=== PATIENT | female | born 1950 | race Caucasian/White ===

== ENCOUNTER 2024-02-03 11:20 | Emergency (ER) | payer MEDICARE, MEDICAID, SELFPAY ==
[2024-02-03 11:21] VITALS: BMI 19.6
[2024-02-03 12:07] VITALS: BP 119/65; PULSE 99; RESP 24; TEMP 36.5; O2SAT 91
--- NOTE | 2024-02-03 12:16 | PD.EDRME ---
Rapid Medical Screening Exam RME Arrival date/time: 02/03/24 11:20 73-year-old female past medical history of asthma and neck smoker presents emergency department requesting refill to albuterol inhaler and shortness of breath. Chief Complaint: Asthma Time Seen by Provider: 02/03/24 12:03 Vital signs: Vital Signs Temperature 97.7 F 02/03/24 12:07 Pulse Rate 99 02/03/24 12:07 Respiratory Rate 24 H 02/03/24 12:07 Blood Pressure 119/65 02/03/24 12:07 Pulse Oximetry (%) 91 L 02/03/24 12:07 Oxygen Delivery Method Room Air 02/03/24 12:07 Vital signs reviewed by provider: Yes
[2024-02-03 12:22] VITALS: PULSE 107
[2024-02-03] MEDS: predniSONE 20 MG TABLET 40 MG PO (12:22)
[2024-02-03] MEDS: ALBUTEROL RT 2.5 MG/0.5 ML NEBU 5 MG INH (12:22)
[2024-02-03] MEDS: IPRATROPIUM RT 0.5 MG/ 2.5 ML NEBU 1 MG INH (12:23)
[2024-02-03 12:26] VITALS: PULSE 100; RESP 16; O2SAT 96
--- NOTE | 2024-02-03 12:33 | PD.ASTHM ---
ED Asthma RME/HPI General Chief Complaint: Asthma Stated Complaint: ASTHMA, NEEDS REFILL ON INHALER Time Seen by Provider: 02/03/24 12:03 Source: patient Arrival date/time: 02/03/24 11:20 73-year-old female past medical history of asthma and neck smoker presents emergency department requesting refill to albuterol inhaler and shortness of breath. Patient denies any fever, chills, productive cough, or any other associated symptom. Mode of arrival: ambulatory Limitations: no limitations RME / HPI RME / HPI Narrative: 02/03/24 11:20 73-year-old female past medical history of asthma and neck smoker presents emergency department requesting refill to albuterol inhaler and shortness of breath. Related Data Previous Rx's ?Medication ?Instructions ?Recorded albuterol sulfate 90 mcg/actuation 2 puff inhalation Q6H PRN 02/03/24 aerosol inhaler (Ventolin HFA) shortness of breath or wheezing #6.7 grams prednisone 20 mg tablet 20 mg PO QDAY 3 days #3 tabs 02/03/24 Allergies Allergy/AdvReac Type Severity Reaction Status Date / Time strawberry Allergy Unknown Verified 02/03/24 11:23 Review of Systems Review of Systems Systems Reviewed: All systems reviewed, normal except as documented Constitutional Constitutional: Reports system reviewed and no additional complaints, except as documented, Denies body ache(s), Denies chills and Denies fever(s) Eyes Eyes: Reports system reviewed and no additional complaints, except as documented and Denies change in vision ENT Ears, Nose, Mouth, and Throat: Reports system reviewed and no additional complaints, except as documented, Denies disequilibrium, Denies dizziness, Denies sore throat and Denies vertigo Cardiovascular Cardiovascular: Reports system reviewed and no additional complaints, except as documented, Denies chest pain and Reports dyspnea Respiratory Respiratory: Reports system reviewed and no additional complaints, except as documented, Denies chest congestion, Denies cough and Reports dyspnea Gastrointestinal Gastrointestinal: Reports system reviewed and no additional complaints, except as documented, Denies abdominal pain, Denies nausea and Denies vomiting Musculoskeletal Musculoskeletal: Reports system reviewed and no additional complaints, except as documented, Denies abnormal gait and Denies arthralgias Integumentary/Breasts Skin/Breast: Reports system reviewed and no additional complaints, except as documented, Denies erythema, Denies rash and Denies wounds Neurologic Neurologic: Reports system reviewed and no additional complaints, except as documented, Denies abnormal gait, Denies disequilibrium, Denies dizziness and Denies vertigo Past Medical History Social History SMOKING STATUS: Smoker, status unknown ED Exam General Limitations: Present no limitations General appearance: Present alert and in no apparent distress Head Head exam: Present atraumatic Eye Eye exam: Present normal appearance, PERRL and EOMI ENT ENT exam: Present normal exam, normal oropharynx and mucous membranes moist Neck Neck exam: Present normal inspection, full ROM and trachea midline Chest Chest inspection: Present normal inspection and symmetric chest wall rise Respiratory Respiratory exam: Present normal lung sounds bilaterally and wheezes Cardiovascular Cardiovascular exam: Present regular rate, normal rhythm and normal heart sounds Abdominal Exam Abdominal exam: Present soft and normal bowel sounds Extremities Exam Extremities exam: Present normal inspection and full ROM Back Exam Back exam: Present normal inspection and full ROM Neurological Exam Neurological exam: Present alert, oriented X3 and CN II-XII intact Psychiatric Psychiatric exam: Present normal affect and normal mood Skin Skin exam: Present warm, dry, intact and normal color Course Quality Measures none Orders Category Date Time Status ALBUTEROL RT 0.5ml [Proventil Rt 0.5ml] Med 02/03/24 12:13 Discontinued 5 mg INH X1 ONE Ipratropium [place] Rt Chayo [Atrovent Rt Chayo] Med 02/03/24 12:13 Discontinued 1 mg INH X1 ONE Sodium Chloride Rt Chayo 0.9% [NS Rt Chayo 0.9%] Med 02/03/24 12:13 Active 3 ml INH PRN PRN predniSONE Med 02/03/24 12:13 Discontinued 40 mg PO X1 ONE Vital Signs Vital signs: Vital Signs Temperature 97.7 F 02/03/24 12:07 Pulse Rate 99 02/03/24 12:07 Respiratory Rate 24 H 02/03/24 12:07 Blood Pressure 119/65 02/03/24 12:07 Pulse Oximetry (%) 91 L 02/03/24 12:07 Oxygen Delivery Method Room Air 02/03/24 12:07 91% room air within normal limits Asthma MDM Narrative MDM Narrative:: 73-year-old female past medical history of asthma and neck smoker presents emergency department requesting refill to albuterol inhaler and shortness of breath. Patient denies any fever, chills, productive cough, or any other associated symptom. Bilateral upper expiratory wheeze on auscultation that significantly improved with breathing treatment and steroids. Does not appear to be in any respiratory distress. Patient speaking in full sentences with no pursed lip breathing or tripoding. Albuterol refilled and instructed to follow-up with primary care provider return to emergency department for any worsening symptoms or as needed. Patient data External records reviewed:: [facility] previous records Clinical information provided by:: patient Social determinants that could affect healthcare access:: none Patient has the following chronic illnesses:: See chart How is presenting disease/condition affected by chronic disease/condition?: exacerbated by Evaluation data The following diagnostics were reviewed and interpreted by me:: other (specify) (N/A) Lab and/or radiology exams considered but not ordered:: N/A Interpretation Summary: N/A Medications / Prescriptions Medications or Prescriptions considered but not ordered:: Ordered Medication administrations:: Medication Administration History Sodium Chloride (Sodium Chloride Rt [place]ayo 0.9% 3 Ml Nebu) 3 ml INH PRN PRN PRN Reason: SOLN Stop: 03/04/24 12:12 Discontinued Medications Albuterol (Albuterol Rt 2.5 Mg/0.5 Ml Nebu) 5 mg INH X1 ONE Stop: 02/03/24 12:14 Last Admin: 02/03/24 12:22 Dose: 5 mg Documented By: MR Ipratropium [place] (Ipratropium Rt 0.5 Mg/ 2.5 Ml Nebu) 1 mg INH X1 ONE Stop: 02/03/24 12:14 Last Admin: 02/03/24 12:23 Dose: 1 mg Documented By: MR Prednisone (Prednisone 20 Mg Tablet) 40 mg PO X1 ONE Stop: 02/03/24 12:14 Last Admin: 02/03/24 12:22 Dose: 40 mg Documented By: [facility] Comments: forgot to scan med Consultations Consultation(s) initiated? (list below): No Diagnosis Differential diagnosis asthma: Acute exacerbation, Status asthmaticus, Acute asthmatic bronchitis, Pneumonia, COPD exacerbation, Pulmonary edema systolic and Pulmonary edema dystolic Most likely diagnosis given after review of the tests above:: Asthma with acute exacerbation Admission Indicated Admission indicated?: not indicated Admission Request Was there a request for admission?: No Disposition Plan Disposition Plan: Discharge Discharge Attestation Discharge Attestation: The patient and all family members were given an opportunity to ask questions and understood the discharge instructions. Discharge instructions specifically effects, indications for sooner follow up or return to the emergency department, and the expected course of current diagnosis. Patient condition: Stable Discharge Plan Plan Patient Disposition: HOME (Self Care) Disposition Comment: Stable Prescriptions/Referrals Prescriptions/Med Rec: New albuterol sulfate [Ventolin HFA] 90 mcg/actuation HFA aerosol inhaler 2 puff inhalation Q6H PRN (Reason: shortness of breath or wheezing) Qty: 6.7 0RF prednisone 20 mg tablet 20 mg PO QDAY 3 Days Qty: 3 0RF Taper: Prednisone Taper 20 mg DAILY for 2 Days and 0 Hour 10 mg DAILY for 2 Days and 0 Hour 5 mg DAILY for 7 Days and 0 Hour Problem List Clinical Impression: Asthma with acute exacerbation Patient/Caregiver Discharge Instructions Discharge Activity: activity as tolerated Education Materials: ED Inhaler Use, Asthma Additional Instructions: Take medication as prescribed. Avoid asthma triggers. Use inhaler as needed for any shortness of breath or wheezing. Follow-up with primary care provider in 2 to 3 days. Return to emergency department for any worsening symptoms or as needed. Print Language: [place] Stand Alone Forms: Sachi Award Info., Patient Portal Info Letter PA/TRASH COLLECTOR Supervising Physician PA/MAMADOU Supervising Physician: Dr. Bernstein
== END 2024-02-03 13:20 | disposition home or self-care (01) ==
LOC: SERX 13:25
PROVIDERS: Emergency Provider Emergency Medicine; PCP Family Medicine
DX: Z76.0 Encounter for issue of repeat prescription (principal); J45.901 Unspecified asthma with (acute) exacerbation
CPT/HCPCS: 94640; 99283; J7512

== ENCOUNTER 2024-02-08 10:20 | Inpatient (IN) | payer MEDICARE, MEDICAID, SELFPAY ==
[2024-02-08] VITALS (14 sets, daily range): BP systolic 126–189; BP diastolic 72–89; PULSE 102–132; RESP 14–89; TEMP 36.3–37.9; O2SAT 92–98; BMI 20.2
--- NOTE | 2024-02-08 10:38 | XR_ITS ---
Examination: AP chest single view Technique one AP portable semiupright chest single view Exam date and time: February 08, 2024 at 1047 hours Comparison March 06, 2006 INDICATIONS: Chest pain today. FINDINGS: COPD with moderate hyperexpansion Normal heart size Rounded masslike area in the right infrahilar region at least 4 cm Left base pneumonia Scarring versus atelectasis in the left upper lobe IMPRESSION: Recommend CT chest without contrast follow-up to exclude 4 cm pulmonary mass in the right infrahilar region
[2024-02-08 10:57] LABS: Basophils # (Auto) 0.1 Thou/mm3 (0.0-0.2); Basophils % (Auto) 0 % (0-2.5); Eosinophils % (Auto) 0 % (0-10); Hematocrit 49.4 % (36.0-46.0); Hemoglobin 16.4 g/dL (12.0-16.0); Immature Granulocytes % (Auto) 3 % (0-0); Immature Granulocytes Auto 0.36 Thou/mm3 (0.00-0.00); Lymphocytes # (Auto) 0.7 Thou/mm3 (1.0-4.8); Lymphocytes % (Auto) 5 % (10-50); Mean Corpuscular HGB Conc 33.2 g/dl (31.0-37.0); Mean Corpuscular Hemoglobin 31.8 pg (25.0-35.0); Mean Corpuscular Volume 96 fL (80-100); Monocytes # (Auto) 1.2 Thou/mm3 (0.0-0.8); Monocytes % (Auto) 9 % (0-12); Neutrophils # (Auto) 10.5 Thou/mm3 (1.8-7.7); Neutrophils % (Auto) 82 % (37-80); Nucleated Red Blood Cell % 0 /100 WBC (0); Platelet Count 434 Thou/mm3 (140-440); RDW Standard Deviation 49.9 fL (36.4-46.3); Red Blood Count 5.16 Miln/mm3 (4.00-5.20); White Blood Count 12.8 Thou/mm3 (3.6-11.0)
[2024-02-08] MEDS: ALBUTEROL RT 2.5 MG/0.5 ML NEBU 10 MG INH (11:02)
[2024-02-08] MEDS: IPRATROPIUM RT 0.5 MG/ 2.5 ML NEBU INH (11:02)
[2024-02-08] MEDS: ALBUTEROL/IPRATROPIUM (Duoneb) RT SOL 3 ML NEBU INH ×3 (11:03→18:16)
--- NOTE | 2024-02-08 11:16 | XR_ITS ---
Examination: CT chest, without intravenous contrast. Sagittal and coronal 2-D reconstructions. Exam date and time: February 08, 2024 1216 hours INDICATIONS: Shortness of breath beginning 5 days ago Abnormal lung opacity in the right perihilar region on chest film today CTDI:vol (mGy) 4.52 DLP: (mGycm) 160 Technique: Multiple 3.0 mm axial sections of the chest to been obtained. Bone and lung density settings are obtained. Sagittal and coronal 2-D reconstructions have been obtained. Low dose protocols were performed. One or more of the following dose reduction techniques were used; automated exposure control, adjustment of the mA and/or KV according to patient size, use of iterative reconstruction technique. Findings: No thoracic aortic aneurysmal dilatation Mild prominence right and left main pulmonary artery segments Hyperexpansion with areas of airspace destruction in both lungs, COPD pattern Wedge-shaped density radiating from the right hilar region, at least 5.4 x 3.8 cm which may represent atelectasis Endobronchial lesion is not depicted Mild atelectasis in the right upper lobe No pulmonary edema No visualized liver or splenic lesion Kidneys partially visualized no hydronephrosis Severe osteopenia IMPRESSION: COPD Pulmonary artery hypertension Wedge-shaped density radiating from the right hilar region and these 5.4 x 3.8 cm most consistent with atelectasis, without definite endobronchial lesion Recommend follow-up chest imaging to document clearing of this area of probable atelectasis If this wedge-shaped area of parenchymal disease persists, consider bronchoscopy follow-up
[2024-02-08 11:19] LABS: INR 1.1 (0.9-1.3); Partial Thromboplastin Time 26.5 Seconds (22.0-36.0); Prothrombin Time 11.5 Seconds (9.0-12.2)
[2024-02-08] MEDS: MethylPREDNISolone SOD SUCC 62.5 MG/ML 2ML VIAL 125 MG IVP ×2 (11:21→18:37)
[2024-02-08 11:22] LABS: B-Type Natriuretic Peptide 369 pg/mL (0-100)
--- NOTE | 2024-02-08 11:37 | PD.EDSOB ---
ED SOB =RME/HPI General Chief Complaint: Shortness of Breath/Dyspnea Stated Complaint: SHORTNESS OF BREATH Time Seen by Provider: 02/08/24 10:37 Arrival date/time: 02/08/24 10:20 RME / HPI RME / HPI Narrative: DR. ELY MAIN ED EVALUATION: 73 year old female with past medical history significant for asthma and former smoker presents to the Emergency Department with complaint of shortness of breath onset yesterday, worse today. Symptoms are moderate. Related Data Previous Rx's ?Medication ?Instructions ?Recorded albuterol sulfate 90 mcg/actuation 2 puff inhalation Q6H PRN 02/03/24 aerosol inhaler (Ventolin HFA) shortness of breath or wheezing #6.7 grams Allergies Allergy/AdvReac Type Severity Reaction Status Date / Time strawberry Allergy Unknown Verified 02/08/24 10:23 Review of Systems Review of Systems Systems Reviewed: All systems reviewed, normal except as documented Narrative Review of Systems: GEN: No fever, no chills, no weight loss EYES: No discharge, no visual changes, no pain HEENT: No ear pain, no congestion, no sore throat PULM: + shortness of breath, no cough, no congestion CV: No chest pain, no dyspnea on exertion, no palpitations GI: No nausea, no vomiting, no diarrhea, no pain, no constipation : No frequency, no urgency and no dysuria MUSC/SKEL: No joint pain, no back pain SKIN: No rash PSYCH: No hallucinations, no depression HEME/LYMPH: No easy bleeding or bruising tendencies NEURO: No weakness, no headache Past Medical History Past Medical History CARDIAC: Positive Hypertension RESPIRATORY: Positive Asthma Social History SMOKING STATUS: Former smoker SUBSTANCE USE: does not use ALCOHOL: Never ED Exam Narrative Physical exam: GENERAL APPEARANCE: alert and oriented x 4, well-developed, well-nourished VITALS: All vitals were reviewed. HEENT: Normocephalic, atraumatic; pupils equal, round, reactive to light; EOMI; mucous membranes pink, moist; oropharynx clear NECK: Supple LUNGS: tachypneic; no rales, no rhonchi HEART: tachycardic, 120; normal S1, S2; no murmurs ABDOMEN: non distended; normal BS; soft, no tenderness, no guarding, no rebound; no masses, no organomegaly, no hernia BACK: no CVA tenderness EXTREMITIES: atraumatic; no edema NEUROLOGIC: awake; alert and oriented x4; cranial nerves II-XII grossly intact; no focal sensory or motor deficits PSYCHIATRIC: appropriate mood and affect SKIN: warm, dry, normal color; no rashes Course Quality Measures none Orders Category Date Time Status Development Technologist NOW Care 02/08/24 10:38 Active EKG (ED ONLY) *Do not use* NOW Care 02/08/24 10:[address] chest wo con Stat Exams 02/08/24 11:16 Completed EKG (ED Only) Stat Exams 02/08/24 10:38 Ordered XR chest 1V portable Stat Exams 02/08/24 10:38 Completed B-Type Natriuretic Peptide Stat Lab 02/08/24 10:44 Completed CBC Stat Lab 02/08/24 10:44 Completed Comprehensive Metabolic Panel Stat Lab 02/08/24 11:42 Completed Magnesium Stat Lab 02/08/24 11:42 Completed Partial Thromboplastin Time Stat Lab 02/08/24 10:44 Completed Prothrombin Time with INR Stat Lab 02/08/24 10:44 Completed Troponin I Stat Lab 02/08/24 11:42 Completed ALBUTEROL RT 0.5ml [Proventil Rt 0.5ml] Med 02/08/24 10:58 Discontinued 10 mg INH X1 ONE Albuterol/Ipratr Rt Chayo [Duoneb Rt Chayo] Med 02/08/24 10:37 Discontinued 3 ml INH X1 ONE Albuterol/Ipratr Rt Chayo [Duoneb Rt Chayo] Med 02/08/24 14:08 Discontinued 3 ml INH X1 ONE Azithromycin Po [Zithromax PO] Med 02/08/24 11:57 Discontinued 500 mg PO X1 ONE Ipratropium [place] Rt Chayo [Atrovent Rt Chayo] Med 02/08/24 10:58 Discontinued 0.5 mg INH X1 ONE Levalbuterol Rt [Xopenex Rt Chayo] Med 02/08/24 15:10 Discontinued 1.25 mg INH X1 ONE MethylPREDNISolone.* [SoluMEDROL Inj] Med 02/08/24 10:58 Discontinued 125 mg IVP X1 ONE Sodium Chloride Rt Chayo 0.9% [NS Rt Chayo 0.9%] Med 02/08/24 10:58 Active 3 ml INH PRN PRN Sodium Chloride Rt Chayo 0.9% [NS Rt Chayo 0.9%] Med 02/08/24 10:58 Discontinued 3 ml INH PRN PRN Sodium Chloride Rt Chayo 0.9% [NS Rt Chayo 0.9%] Med 02/08/24 15:10 Discontinued 3 ml INH PRN PRN Vital Signs Vital signs: Vital Signs Temperature 97.4 F 02/08/24 10:30 Pulse Rate 115 H 02/08/24 10:30 Respiratory Rate 27 H 02/08/24 10:30 Blood Pressure 189/85 H 02/08/24 10:30 Pulse Oximetry (%) 95 02/08/24 10:30 Oxygen Delivery Method Oxy Mask 02/08/24 10:30 Oxygen Flow Rate 15 02/08/24 10:30 Shortness of Breath / Dyspnea MDM Narrative MDM Narrative:: Carrie Wang am scribing for and in the presence of Dr. Ely. Patient data External records reviewed:: [facility] previous records (Reviewed last ED visit dated 02/03/24, discharged with the following: Asthma with acute exacerbation.) Clinical information provided by:: patient and family Social determinants that could affect healthcare access:: other (specify) (former smoker) Patient has the following chronic illnesses:: Asthma How is presenting disease/condition affected by chronic disease/condition?: exacerbated by Evaluation data The following diagnostics were reviewed and interpreted by me:: lab results, radiology exam(s) and EKG tracing(s) Lab and/or radiology exams considered but not ordered:: none Interpretation Summary: Procedure(s): XR chest 1V portable Accession Number(s): [id number] cc: Lenin Crawford MD; Sary Ely MD~ Examination: AP chest single view Technique one AP portable semiupright chest single view Exam date and time: February 08, 2024 at 1047 hours Comparison March 06, 2006 INDICATIONS: Chest pain today. FINDINGS: COPD with moderate hyperexpansion Normal heart size Rounded masslike area in the right infrahilar region at least 4 cm Left base pneumonia Scarring versus atelectasis in the left upper lobe IMPRESSION: Recommend CT chest without contrast follow-up to exclude 4 cm pulmonary mass in the right infrahilar region Dictated By: Lenin Crawford MD Procedure(s): CT chest wo [facility] Accession Number(s): [id number] cc: Maria Ines Odom; Lenin Crawford MD; Sary Ely MD~ Examination: CT chest, without intravenous contrast. Sagittal and coronal 2-D reconstructions. Exam date and time: February 08, 2024 1216 hours INDICATIONS: Shortness of breath beginning 5 days ago Abnormal lung opacity in the right perihilar region on chest film today CTDI:vol (mGy) 4.52 DLP: (mGycm) 160 Technique: Multiple 3.0 mm axial sections of the chest to been obtained. Bone and lung density settings are obtained. Sagittal and coronal 2-D reconstructions have been obtained. Low dose protocols were performed. One or more of the following dose reduction techniques were used; automated exposure control, adjustment of the mA and/or KV according to patient size, use of iterative reconstruction technique. Findings: No thoracic aortic aneurysmal dilatation Mild prominence right and left main pulmonary artery segments Hyperexpansion with areas of airspace destruction in both lungs, COPD pattern Wedge-shaped density radiating from the right hilar region, at least 5.4 x 3.8 cm which may represent atelectasis Endobronchial lesion is not depicted Mild atelectasis in the right upper lobe No pulmonary edema No visualized liver or splenic lesion Kidneys partially visualized no hydronephrosis Severe osteopenia IMPRESSION: COPD Pulmonary artery hypertension Wedge-shaped density radiating from the right hilar region and these 5.4 x 3.8 cm most consistent with atelectasis, without definite endobronchial lesion Recommend follow-up chest imaging to document clearing of this area of probable atelectasis If this wedge-shaped area of parenchymal disease persists, consider bronchoscopy follow-up Dictated By: Lenin Crawford MD Medications / Prescriptions Medications or Prescriptions considered but not ordered:: none Medication administrations:: Medication Administration History Acetaminophen (Acetaminophen 325 Mg Tablet) 650 mg PO Q6H PRN PRN Reason: Fever >101.5 Stop: 03/09/24 17:05 Albuterol/Ipratropium (Albuterol/Ipratropium (Duoneb) Rt Chayo 3 Ml Nebu) 3 ml INH Q6H RAPHAEL Stop: 03/09/24 17:29 Heparin Sodium (Porcine) (Heparin Sod Inj 5000 Unit/Ml Vial) 5,000 unit SC Q8HR RAPHAEL Stop: 02/22/24 17:29 Sodium Chloride (Ns) 1,000 mls @ 100 mls/hr IV .Q10H RAPHAEL Stop: 02/09/24 17:14 Last Admin: 02/08/24 17:30 Dose: 100 mls/hr Documented By: JOHN Azithromycin 500 mg/ Sodium (Chloride) 250 mls @ 250 mls/hr IV QDAY [facility] Stop: 02/12/24 17:19 Ceftriaxone Sodium/Dextrose (Rocephin/D5w 1gm Iv Premix) 50 mls @ 100 mls/hr IV QDAY RAPHAEL Stop: 02/15/24 17:20 Methylprednisolone Sodium Succinate (Methylprednisolone Sod Succ 40 Mg Vial) 60 mg IVP QDAY [facility] Stop: 02/11/24 08:59 Ondansetron HCl (Ondansetron Inj 2 Mg/Ml Inj 2 Ml) 4 mg IV Q6H PRN; Protocol PRN Reason: NAUSEA OR VOMITING Stop: 03/09/24 17:05 Sodium Chloride (Sodium Chloride Rt Chayo 0.9% 3 Ml Nebu) 3 ml INH PRN PRN PRN Reason: SOLN Stop: 03/09/24 10:57 Last Admin: 02/08/24 15:16 Dose: 3 ml Documented By: LAKHWINDER Discontinued Medications Albuterol (Albuterol Rt 2.5 Mg/0.5 Ml Nebu) 10 mg INH X1 ONE Stop: 02/08/24 10:59 Last Admin: 02/08/24 11:02 Dose: 10 mg Documented By: LAKHWINDER Albuterol/Ipratropium (Albuterol/Ipratropium (Duoneb) Rt Chayo 3 Ml Nebu) 3 ml INH X1 ONE Stop: 02/08/24 10:38 Last Admin: 02/08/24 11:03 Dose: 3 ml Documented By: LAKHWINDER Albuterol/Ipratropium (Albuterol/Ipratropium (Duoneb) Rt Chayo 3 Ml Nebu) 3 ml INH X1 ONE Stop: 02/08/24 14:09 Last Admin: 02/08/24 14:17 Dose: 3 ml Documented By: LAKHWINDER Albuterol/Ipratropium (Albuterol/Ipratropium (Duoneb) Rt Chayo 3 Ml Nebu) 3 ml INH Q6H PRN PRN Reason: COPD Stop: 03/09/24 17:14 Azithromycin (Azithromycin 250 Mg Tablet) 500 mg PO X1 ONE Stop: 02/08/24 11:58 Last Admin: 02/08/24 12:09 Dose: 500 mg Documented By: CHRIST Ipratropium [place] (Ipratropium Rt 0.5 Mg/ 2.5 Ml Nebu) 0.5 mg INH X1 ONE Stop: 02/08/24 10:59 Last Admin: 02/08/24 11:02 Dose: 0.5 mg Documented By: LAKHWINDER Levalbuterol HCl (Levalbuterol Rt 1.25 Mg/0.5 Ml Nebu) 1.25 mg INH X1 ONE Stop: 02/08/24 15:11 Last Admin: 02/08/24 15:16 Dose: 1.25 mg Documented By: LAKHWINDER Methylprednisolone Sodium Succinate (Methylprednisolone Sod Succ 62.5 Mg/Ml 2ml Vial) 125 mg IVP X1 ONE Stop: 02/08/24 10:59 Last Admin: 02/08/24 11:21 Dose: 125 mg Documented By: JOHN Methylprednisolone Sodium Succinate (Methylprednisolone Sod Succ 62.5 Mg/Ml 2ml Vial) 125 mg IVP X1 ONE Stop: 02/08/24 17:16 Sodium Chloride (Sodium Chloride Rt Chayo 0.9% 3 Ml Nebu) 3 ml INH PRN PRN PRN Reason: SOLN Stop: 03/09/24 10:57 Sodium Chloride (Sodium Chloride Rt Chayo 0.9% 3 Ml Nebu) 3 ml INH PRN PRN PRN Reason: SOLN Stop: 03/09/24 15:09 Sodium Chloride (Sodium Chloride Rt 10% 15 Ml Nebu) 5 ml INH X1 ONE Stop: 02/08/24 17:21 see above Consultations Consultation(s) initiated? (list below): Yes Consultation #1 (Physician, Specialty, Details): Discussed test HPI, PMHx, lab, radiology results and/or management with hospitalist. Will admit for further evaluation and management. Accepts patient for admission. Time: 17:00 Diagnosis Shortness of Breath Differential Diagnosis: acute exacerbation of chronic obstructive airways disease, congestive heart failure, community acquired pneumonia, asthma with exacerbation and pulmonary embolism Most likely diagnosis given after review of the tests above:: As noted below. Admission Indicated Admission indicated?: indicated Admission Request Was there a request for admission?: Yes Admission Attestation Admission request attestation: Discussed case with [] from Hospitalist service regarding admission. Discussed patients ED course, exam findings, labs, and radiology results. The Hospitalist [agrees,declines] to accept the patient for admission. Disposition Plan Disposition Plan: Admit Discharge Plan Plan Patient Disposition: Admit Acute Care w/in Hospital
[2024-02-08] MEDS: AZITHROMYCIN 250 MG TABLET 500 MG PO (12:09)
[2024-02-08 12:31] LABS: Alanine Aminotransferase 36 U/L (10-49); Albumin, Serum 4.6 gm/dL (3.4-4.8); Albumin/Globulin Ratio 1.7 (1.2-2.2); Alkaline Phosphatase 88 U/L (46-116); Anion Gap 7 (7-16); Aspartate Amino Transferase 21 U/L (0-34); BUN/Creatinine Ratio 17 Ratio (12-20); Bilirubin,Total 0.4 mg/dL (0.3-1.2); Blood Urea Nitrogen 10 mg/dL (9-23); Calcium 9.3 mg/dL (8.3-10.6); Calcium (Corrected) 9.3 mg/dL (8.5-10.1); Chloride 96 mMol/L (98-107); Creatinine (Component) 0.6 mg/dL (0.6-1.3); Estimated Creatinine Clearance 60.9 mL/min (>60); Globulin 2.7 gm/dL (2.3-3.5); Glucose 111 mg/dL (74-106); Magnesium 2.1 mg/dL (1.6-2.6); Osmolality,Calculated 268 (275-295); Sodium 134 mMol/L (136-145); Total Protein 7.3 gm/dL (5.7-8.2); Troponin I 0.039 ng/mL (0.0-0.045); eGFR > 60 See Note
[2024-02-08] MEDS: LEVALBUTEROL RT 1.25 MG/0.5 ML NEBU INH (15:16)
[2024-02-08] MEDS: SODIUM CHLORIDE RT SOL 0.9% 3 ML NEBU INH (15:16)
--- NOTE | 2024-02-08 17:20 | XR_ITS ---
Examination: CTA chest with intravenous contrast 2-D reconstructions 3-D reconstructions, vascular Date and time of exam: February 08, 2024 8032 hours Indications: Shortness of breath chest pain beginning yesterday CTDI: vol (mGy) 6.17 DLP: (mGycm) 179 Technique: Multiple axial sections of the thorax have been obtained. 3 mm slice thickness, from below the hemidiaphragms to above the apices of the lungs. Mediastinal and lung density settings have been obtained. 2-D sagittal and coronal reconstructions. 3-D angiographic renderings, 3-D volume renderings, 3D post processing, vascular maximum intensity projections obtained. Contrast administered is 75 cc Isovue-370 intravenous 2-D sagittal coronal reconstructions 3-D reconstructions, 3-D post processing vascular maximum intensity projections Low dose protocols, automated exposure control, adjustment MA KV according to patient size Findings: AP dimension ascending thoracic aorta 30 mm No pulmonary artery emboli Wedge-shaped parenchymal disease in the right perihilar region is again noted, highest on the differential list atelectasis, underlying pulmonary mass not excluded COPD with areas of airspace destruction Atelectasis in the left upper lobe and right base No visualized liver or splenic lesion Contracted gallbladder No hydronephrosis Heavy abdominal aortic calcification Prominent osteopenia Impression: Negative for pulmonary artery emboli Wedge-shaped parenchymal disease in the right perihilar region again noted, consider atelectasis, underlying pulmonary mass not excluded Consider bronchoscopy right bronchial system.
--- NOTE | 2024-02-08 17:23 | XR_ITS ---
Examination: Venous duplex lower extremity sonogram, bilateral. Date and time of exam: February 08, 2024 1742 hrs. Indications: Bilateral lower extremity edema this week Technique: Multiple sonographic images of the deep venous system have been obtained. B-mode/2-D grayscale imaging of vascular structures and Doppler spectral analysis (waveforms) and color performed Both legs are examined. Findings: Deep venous systems do not demonstrate abnormal echogenicity. All visualized deep veins exhibit compressibility. All visualized deep veins exhibit augmentation. Impression: Negative for deep vein thrombosis
--- NOTE | 2024-02-08 17:27 | ESHP_ITS ---
<Statement entered by Luciano Kong MD - 02/12/24 14:17> I reviewed above note and agree with findings and plans. I have also personally examined the patient with medicine team and went over assessment and plan with medical team including dental internship and resident physician. Documentation for date of: 02/08/24 HPI History of Present Illness History of present illness: Ms. Ramirez is a 73-year-old female with past medical history significant for asthma for which she uses an albuterol inhaler daily. Patient also is a former smoker and smoked for 40 years approximately half a pack a day daily however patient quit smoking cigarettes 6 months ago. Patient states that last Sunday; came to the ED at [facility] for shortness of breath and was discharged home with antibiotics, her symptoms initially improved. However for the last couple days patient's shortness of breath progressively worsened without improvement with her albuterol inhaler, which prompted her to come to the ED. patient ambulates without difficulty, or shortness of breath. Patient denies recent travel history or sick contacts. patient denies any chest pain, dizziness, nausea vomiting or, abdominal pain. ED Course: In the ED patient's initial vital signs include blood pressure 189/85, heart rate 115, respiration 27, saturating at 95% on 15 L of oxygen via oxy mask. Lab findings include WBC 12.8, hemoglobin 16.4, hematocrit 49.4, sodium 134, chloride 96, glucose 111, BNP 369. Bedside COVID is negative Imaging: Chest x-ray- COPD with moderate hyperexpansion, rounded masslike area in the right infrahilar region at least 4 cm, left base pneumonia Chest CT- COPD, Pulmonary artery hypertension, Wedge-shaped density radiating from the right hilar region and these 5.4 x 3.8cm most consistent with atelectasis, without definite endobronchial lesion In the ED patient received breathing treatment and Solu-Medrol PMH: Asthma PSH: bilateral knee surgery SH: denies alcohol, or drugs, pt is a former smoker (quit approximately 6 months ago) Home Meds: Albuterol Review of Systems Review of Systems Narrative Review of Systems: GENERAL: A&Ox3 . Awake, Not in acute distress NEURO: no focal neurological deficits HEENT: Atraumatic, Normocephalic. mucous membranes moist. Eyes open, symmetrical, & clear HEART: Normal Heart Sounds LUNGS: Bilateral wheezing ABDOMEN: soft, non-distended, non-tender, bowel sounds heard, no guarding or rebound tenderness SKIN: No Rash or ecchymoses EXTREMITIES: bilateraly lower extremity edema (1+pitting on the left) , no tenderness, able to move all 4 extremities, pedal pulses palpated Exam Vital Signs Temp Pulse Resp BP Pulse Ox O2 Del Method O2 Flow Rate 98.4 F 103 H 29 H 129/77 93 L Oxy Mask 3 02/08/24 17:00 02/08/24 17:00 02/08/24 17:00 02/08/24 17:00 02/08/24 17:00 02/08/24 17:00 02/08/24 17:00 FiO2 5 02/08/24 11:07 Results: Labs 02/08/24 10:44 02/08/24 11:42 Labs: Short CBC 02/08/24 Range/Units 10:44 WBC 12.8 H (3.6-11.0) Thou/mm3 Hgb 16.4 H (12.0-16.0) g/dL Hct 49.4 H (36.0-46.0) % Plt Count 434 (140-440) Thou/mm3 BMP 02/08/24 11:42 Sodium 134 L Potassium 4.0 Chloride 96 L Carbon Dioxide 31.0 BUN 10 Creatinine 0.6 Glucose 111 H Calcium 9.3 Cardiac Enzymes 02/08/24 Range/Units 11:42 Troponin I 0.039 (0.0-0.045) ng/mL Liver Function 02/08/24 Range/Units 11:42 Total Bilirubin 0.4 (0.3-1.2) mg/dL AST 21 (0-34) U/L ALT 36 (10-49) U/L Alkaline Phosphatase 88 (46-116) U/L Albumin 4.6 (3.4-4.8) gm/dL Quality Measures Quality Measures none Advance care planning discussed with:: patient Medications Home Medications and Allergies Home Medications ?Medication ?Instructions ?Recorded ?Confirmed ?Type lisinopril 20 mg tablet 20 mg PO DAILY 02/08/24 02/08/24 History Allergies Allergy/AdvReac Type Severity Reaction Status Date / Time strawberry Allergy Unknown Verified 02/08/24 10:23 Visit Medications Acetaminophen (Acetaminophen 325 Mg Tablet) 650 mg PO Q6H PRN PRN Reason: Fever >101.5 Stop: 03/09/24 17:05 Albuterol/Ipratropium (Albuterol/Ipratropium (Duoneb) Rt Chayo 3 Ml Nebu) 3 ml INH Q6H RAPHAEL Stop: 03/09/24 17:29 Heparin Sodium (Porcine) (Heparin Sod Inj 5000 Unit/Ml Vial) 5,000 unit SC Q8HR RAPHAEL Stop: 02/22/24 17:29 Sodium Chloride (Ns) 1,000 mls @ 100 mls/hr IV .Q10H RAPHAEL Stop: 02/09/24 17:14 Azithromycin 500 mg/ Sodium (Chloride) 250 mls @ 250 mls/hr IV QDAY RAPHAEL Stop: 02/12/24 17:19 Ceftriaxone Sodium/Dextrose (Rocephin/D5w 1gm Iv Premix) 50 mls @ 100 mls/hr IV QDAY RAPHAEL Stop: 02/15/24 17:20 Methylprednisolone Sodium Succinate (Methylprednisolone Sod Succ 40 Mg Vial) 60 mg IVP QDAY RAPHAEL Stop: 02/11/24 08:59 Ondansetron HCl (Ondansetron Inj 2 Mg/Ml Inj 2 Ml) 4 mg IV Q6H PRN; Protocol PRN Reason: NAUSEA OR VOMITING Stop: 03/09/24 17:05 Sodium Chloride (Sodium Chloride Rt Chayo 0.9% 3 Ml Nebu) 3 ml INH PRN PRN PRN Reason: SOLN Stop: 03/09/24 10:57 Last Admin: 02/08/24 15:16 Dose: 3 ml Discontinued Medications Albuterol (Albuterol Rt 2.5 Mg/0.5 Ml Nebu) 10 mg INH X1 ONE Stop: 02/08/24 10:59 Last Admin: 02/08/24 11:02 Dose: 10 mg Albuterol/Ipratropium (Albuterol/Ipratropium (Duoneb) Rt Chayo 3 Ml Nebu) 3 ml INH X1 ONE Stop: 02/08/24 10:38 Last Admin: 02/08/24 11:03 Dose: 3 ml Albuterol/Ipratropium (Albuterol/Ipratropium (Duoneb) Rt Chayo 3 Ml Nebu) 3 ml INH X1 ONE Stop: 02/08/24 14:09 Last Admin: 02/08/24 14:17 Dose: 3 ml Albuterol/Ipratropium (Albuterol/Ipratropium (Duoneb) Rt Chayo 3 Ml Nebu) 3 ml INH Q6H PRN PRN Reason: COPD Stop: 03/09/24 17:14 Azithromycin (Azithromycin 250 Mg Tablet) 500 mg PO X1 ONE Stop: 02/08/24 11:58 Last Admin: 02/08/24 12:09 Dose: 500 mg Ipratropium [place] (Ipratropium Rt 0.5 Mg/ 2.5 Ml Nebu) 0.5 mg INH X1 ONE Stop: 02/08/24 10:59 Last Admin: 02/08/24 11:02 Dose: 0.5 mg Levalbuterol HCl (Levalbuterol Rt 1.25 Mg/0.5 Ml Nebu) 1.25 mg INH X1 ONE Stop: 02/08/24 15:11 Last Admin: 02/08/24 15:16 Dose: 1.25 mg Methylprednisolone Sodium Succinate (Methylprednisolone Sod Succ 62.5 Mg/Ml 2ml Vial) 125 mg IVP X1 ONE Stop: 02/08/24 10:59 Last Admin: 02/08/24 11:21 Dose: 125 mg Methylprednisolone Sodium Succinate (Methylprednisolone Sod Succ 62.5 Mg/Ml 2ml Vial) 125 mg IVP X1 ONE Stop: 02/08/24 17:16 Sodium Chloride (Sodium Chloride Rt [place]ay[place] 0.9% 3 Ml Nebu) 3 ml INH PRN PRN PRN Reason: SOLN Stop: 03/09/24 10:57 Sodium Chloride (Sodium Chloride Rt [place]ayo 0.9% 3 Ml Nebu) 3 ml INH PRN PRN PRN Reason: SOLN Stop: 03/09/24 15:09 Sodium Chloride (Sodium Chloride Rt 10% 15 Ml Nebu) 5 ml INH X1 ONE Stop: 02/08/24 17:21 Assessment & Plan Plan Ms. Ramirez is a 73-year-old female with past medical history significant for asthma for which she uses an albuterol inhaler daily. Patient also is a former smoker and smoked for 40 years approximately half a pack a day daily however patient quit smoking cigarettes 6 months ago. Patient states that last Sunday; came to the ED at [facility] for shortness of breath and was discharged home with antibiotics, her symptoms initially improved. However for the last couple days patient's shortness of breath progressively worsened without improvement with her albuterol inhaler, which prompted her to come to the ED. patient is admitted to the hospital for IV antibiotics as well as CTA to rule out pulmonary embolism. #Sepsis 2/ #Community-acquired pneumonia -SIRS 3/-tachycardia, tachypnea, leukocytosis (WBC 12.8) -Patient recently was sick for which she was discharged from the ED with antibiotics Plan: -Azithromycin 02/07- -Ceftriaxone 02/07- -Blood and sputum cultures ordered -Cocci IgM ordered #Acute hypoxic respiratory failure 2/ # COPD exacerbation in the setting of #Hx of asthma #vs. pulmonary embolism #Pulmonary mass -Pt. have SOB for past 2 days with tachycardia and tachypnea -Pt. is a former smoker- smoked half a pack of cigarettes for 40 years, and quit 6 months ago -pt denies recent travel history or sick contacts, denies chest pain -Chest x-ray- COPD with moderate hyperexpansion, rounded masslike area in the right infrahilar region at least 4 cm, left base pneumonia Chest CT- COPD, Pulmonary artery hypertension, Wedge-shaped density radiating from the right hilar region and these 5.4 x 3.8cm most consistent with atelectasis, without definite endobronchial lesion Plan: -Incentive spirometery -DuoNebs every 6 hours- -Solu-Medrol 125 Mg x 1 given, Solu-Medrol 60 Mg daily -CTA stat pending -Bilateral venous Doppler pending Disposition: Telemetry DVT Prophylaxis: Heparin 5000 units SC Q8 hrs and SCD QSHIFT GI Prophylaxis: Pantoprozol-40 IV Qday Diet: Regular diet after nurse swallow screen Code status: DNR Assessment and plan discussed with my senior resident Dr. Fontenot & attending physician Dr. Dilan Brink (PGY-1)- Internal medicine resident Senior resident attestation: Patient evaluated and examined at the bedside, plan of care discussed with rest of the team including my attending physician, except as noted. Patient is a 73-year-old female past medical history of smoking and asthma, came to the ER complaining of progressive shortness of breath for the past few days, she was discharged home on antibiotics and her last presentation to ER initially symptomatic improvement but now came in with acute hypoxic respiratory failure. Chest imaging shows pulmonary mass versus wedge-shaped opacity in the right hilar region 5 into 4 cm. Left base pneumonia. Also noted asymmetrical lower extremity edema more on the left leg 1+ pitting. #Sepsis secondary to pneumonia #Acute hypoxic respiratory failure ? Continue azithromycin and ceftriaxone, follow cocci serology and blood and sputum cultures ?IV Solu-Medrol 125 mg x 1, continue Solu-Medrol 60 mg daily on nasal cannula O2 #Concern for pulmonary embolism?ruled out #Concern for DVT?ruled out #Possible pulmonary mass ? Follow microbiology results and cocci serology, consider bronchoscopy versus CT-guided biopsy for pulmonary mass. Quresh PGY2
[2024-02-08] MEDS: SODIUM CHLORIDE 0.9% 1000 ML 1,000 ML 100 ML IV (17:30)
[2024-02-08] MEDS: cefTRIAXone/D5w 1gm IV premix 50 ML IV (18:35)
[2024-02-08] MEDS: HEPARIN SOD INJ 5000 UNIT/ML VIAL SC (18:37)
[2024-02-08] MEDS: PANTOPRAZOLE INJ 40 MG VIAL IV (18:37)
--- NOTE | 2024-02-08 19:15 | ECHO_ITS ---
Transthoracic Echo Report Ht (in): 60 Wt (lb): 104 Exam Location: Portable Status: Inpatient Activities Volunteer: Precious Ku Indications: Procedure Performed: BP: 119 / 41 HR: Rhythm: Bradycardia Technical Quality: Fair MEASUREMENTS (Male / Female) Normal Values 2D ECHO LV Diastolic Diameter PLAX 4.1 cm 4.2 - 5.9 / 3.9 - 5.3 cm LV Systolic Diameter PLAX 3.0 cm IVS Diastolic Thickness 0.7 cm 0.6 - 1.0 / 0.6 - 0.9 cm LVPW Diastolic Thickness 0.8 cm 0.6 - 1.0 / 0.6 - 0.9 cm LV Relative Wall Thickness 0.4 LVOT Diameter 1.7 cm LA Volume Index 20.5 cm?/m? 16 - 28 cm?/m? Ascending Aorta Diameter 2.3 cm M-MODE Aortic Root Diameter MM 2.4 cm LA Systolic Diameter MM 3.2 cm LA Ao Ratio MM 1.3 AV Cusp Separation MM 1.8 cm DOPPLER AV Peak Velocity 127.0 cm/s AV Peak Gradient 6.5 mmHg AV Mean Gradient 3.0 mmHg AV Velocity Time Integral 22.7 cm LVOT Peak Velocity 87.2 cm/s LVOT Peak Gradient 3.0 mmHg LVOT Velocity Time Integral 17.6 cm AV Area Cont Eq vti 1.8 cm? AV Area Cont Eq pk 1.6 cm? MV Peak Velocity 68.9 cm/s MV Peak Gradient 1.9 mmHg MV Mean Velocity 35.2 cm/s MV Mean Gradient 1.0 mmHg MV Area PHT 2.9 cm? Mitral E Point Velocity 58.2 cm/s Mitral A Point Velocity 64.5 cm/s Mitral E to A Ratio 0.9 LV E' Lateral Velocity 9.1 cm/s Mitral E to LV E' Lateral Ratio 6.4 LV E' Septal Velocity 7.1 cm/s Mitral E to LV E' Septal Ratio 8.2 TR Peak Velocity 310.7 cm/s TR Peak Gradient 38.6 mmHg FINDINGS Left Ventricle Normal left ventricular size, wall thickness, systolic function with no obvious regional wall motion abnormalities. The ejection fraction is visually estimated at 50-55%. Right Ventricle The right ventricle is normal in size and systolic function. The estimated right ventricular systoli c pressure, 50 mm HG Left Atrium The left atrium is normal by two-dimensional, color flow and Doppler imaging with no structural abnormalities, no thrombus formation present. Right Atrium The right atrium is normal by two-dimensional imaging, color flow and Doppler imaging with no struct ural abnormalities, no thrombus formation present. Atrial Septum The interatrial septum appears normal with no evidence of a shunt. Aorta The aorta is normal by two-dimensional, color flow and Doppler interrogation. Mitral Valve The mitral valve is normal by two-dimensional, color flow and Doppler interrogation. There is trace mitral valve regurgitation. Aortic Valve The aortic valve is trileaflet and normal by two-dimensional, color flow and Doppler interrogation. There is no significant aortic valve regurgitation. Tricuspid Valve The tricuspid valve is normal by two-dimensional, color flow and Doppler interrogation. There is mod erate tricuspid valve regurgitation. Pulmonic Valve There is no significant pulmonic valve regurgitation. Vessels The pulmonary artery appears normal. The inferior vena cava pulmonary and hepatic veins are mildly dilated. Pericardium The pericardium is normal by two-dimensional imaging. There is no significant pericardial effusion. CONCLUSIONS Normal LV size and function. Estimated EF 50-55% Normal RV size and function. Estimated RVSP 50 mmHg. Trace MR, Moderate TR. Nguyen Bennett (Electronically Signed) Final Date: 11 February 2024 13:31
[2024-02-09] VITALS (12 sets, daily range): BP systolic 123–164; BP diastolic 85–101; PULSE 101–120; RESP 22–35; TEMP 36.1–37.1; O2SAT 92–100; BMI 16.0; BMI 16.1
[2024-02-09] MEDS: ALBUTEROL/IPRATROPIUM (Duoneb) RT SOL 3 ML NEBU INH ×2 (00:16→05:58)
[2024-02-09] MEDS: ALBUTEROL RT 2.5 MG/0.5 ML NEBU INH (03:00)
[2024-02-09] MEDS: SODIUM CHLORIDE RT SOL 0.9% 3 ML NEBU INH (03:00)
[2024-02-09] MEDS: HEPARIN SOD INJ 5000 UNIT/ML VIAL SC ×3 (05:30→21:22)
[2024-02-09] MEDS: SODIUM CHLORIDE 0.9% 1000 ML 1,000 ML 100 ML IV (05:31)
[2024-02-09 06:11] LABS: Basophils % (Auto) 0 % (0-2.5); Eosinophils % (Auto) 0 % (0-10); Hematocrit 43.2 % (36.0-46.0); Hemoglobin 14.4 g/dL (12.0-16.0); Immature Granulocytes % (Auto) 2 % (0-0); Immature Granulocytes Auto 0.22 Thou/mm3 (0.00-0.00); Lymphocytes # (Auto) 0.5 Thou/mm3 (1.0-4.8); Lymphocytes % (Auto) 4 % (10-50); Mean Corpuscular HGB Conc 33.3 g/dl (31.0-37.0); Mean Corpuscular Volume 96 fL (80-100); Monocytes # (Auto) 0.7 Thou/mm3 (0.0-0.8); Monocytes % (Auto) 5 % (0-12); Neutrophils % (Auto) 89 % (37-80); Nucleated Red Blood Cell % 0 /100 WBC (0); Platelet Count 374 Thou/mm3 (140-440); RDW Standard Deviation 50.8 fL (36.4-46.3); White Blood Count 12.4 Thou/mm3 (3.6-11.0)
[2024-02-09 07:41] LABS: Alanine Aminotransferase 32 U/L (10-49); Albumin, Serum 4.5 gm/dL (3.4-4.8); Albumin/Globulin Ratio 1.9 (1.2-2.2); Alkaline Phosphatase 80 U/L (46-116); Anion Gap 6 (7-16); Aspartate Amino Transferase 23 U/L (0-34); BUN/Creatinine Ratio 18 Ratio (12-20); Bilirubin,Total 0.2 mg/dL (0.3-1.2); Blood Urea Nitrogen 11 mg/dL (9-23); Carbon Dioxide 34.1 mMol/L (20.0-31.0); Chloride 98 mMol/L (98-107); Creatinine (Component) 0.6 mg/dL (0.6-1.3); Globulin 2.4 gm/dL (2.3-3.5); Glucose 124 mg/dL (74-106); Magnesium 2.1 mg/dL (1.6-2.6); Osmolality,Calculated 276 (275-295); Phosphorous 4.1 mg/dL (2.4-5.1); Potassium 4.6 mMol/L (3.4-5.1); Sodium 138 mMol/L (136-145); Total Protein 6.9 gm/dL (5.7-8.2); eGFR > 60 See Note
[2024-02-09] MEDS: PANTOPRAZOLE INJ 40 MG VIAL IV (08:28)
[2024-02-09] MEDS: LORazepam 2 MG/ML VIAL 1 MG IVP (08:28)
[2024-02-09] MEDS: cefTRIAXone/D5w 1gm IV premix 50 ML IV (08:28)
[2024-02-09] MEDS: IPRATROPIUM RT 0.5 MG/ 2.5 ML NEBU INH ×2 (12:21→18:36)
[2024-02-09] MEDS: LEVALBUTEROL RT 1.25 MG/0.5 ML NEBU INH ×2 (12:21→18:36)
[2024-02-09] MEDS: NICOTINE PATCH 21 MG/24 HR PATCH.TD24 TOP (13:52)
[2024-02-09] MEDS: AZITHROMYCIN INJ 500 MG in SODIUM CHLORIDE 0.9% 250 ML 250 ML 250 MG IV (13:52)
--- NOTE | 2024-02-09 14:11 | ESPR_ITS ---
<Statement entered by Luciano Kong MD - 02/12/24 14:22> I reviewed above note and agree with findings and plans. I have also personally examined the patient with medicine team and went over assessment and plan with medical team including rn internship and resident physician. Documentation for date of: 02/09/24 Subjective Subjective Interval history: Patient seen at bedside today. Still requiring 4 L via oxy mask. Noted to have tachycardia and tachypnea with CTA was negative for PE. May consider bronchoscopy tomorrow based upon radiology reports and continued oxygen demand. Patient is a heavy smoker so nicotine patch was added today. Gave patient 1 mg of Ativan to reduce anxiety earlier in the day which made her comfortable and sleepy. Oxygen goal is to maintain O2 saturations above 88. Will litigation counsel nursing staff to titrate oxygen down. Exam Vital Signs Temp Pulse Resp BP Pulse Ox O2 Del Method O2 Flow Rate 98.6 F 113 H 34 H 133/87 H 100 Oxy Mask 4 02/09/24 12:00 02/09/24 12:23 02/09/24 12:23 02/09/24 12:00 02/09/24 12:23 02/09/24 12:00 02/09/24 12:23 FiO2 5 02/09/24 08:00 Narrative Exam GENERAL: Alert and oriented x 3. No acute distress. Elderly appearing, cachectic and frail. EYES: EOMI. Anicteric. HEENT: Moist mucous membranes. No scleral icterus. No cervical lymphadenopathy. LUNGS: Very minimal breath sounds. No accessory muscle use. CARDIOVASCULAR: Tachycardia noted. No murmur. No JVD. ABDOMEN: Soft, non-tender and non-distended. No palpable masses. EXTREMITIES: All 4 extremeties intact. No edema. Nontender. SKIN: No rashes or lesions. Warm. NEUROLOGIC: No focal neurological deficits. CN II-XII grossly intact, but not individually tested. PSYCHIATRIC: Cooperative. Appropriate mood and affect. Objective Labs 02/09/24 05:08 02/09/24 07:00 Labs: Laboratory Results - last 24 hr 02/09/24 02/09/24 05:08 07:00 WBC 12.4 H RBC 4.50 Hgb 14.4 D Hct 43.2 MCV 96 MCH 32.0 MCHC 33.3 RDW Std Deviation 50.8 H Plt Count 374 D Neut % (Auto) 89 H Lymph % (Auto) 4 L [place] % (Auto) 5 Eos % (Auto) 0 Baso % (Auto) 0 Neut # (Auto) 11.0 H Lymph # (Auto) 0.5 L [place] # (Auto) 0.7 Eos # (Auto) 0.0 Baso # (Auto) 0.0 Immature Gran # (Auto) 0.22 H Absolute Nucleated RBC 0.00 Immature Gran % 2 H Nucleated RBC % 0 Sodium 138 Potassium 4.6 D Chloride 98 Carbon Dioxide 34.1 H Anion Gap 6 L BUN 11 Creatinine 0.6 Estim Creat Clear Calc 50.0 L eGFR > 60 BUN/Creatinine Ratio 18 Glucose 124 H Calculated Osmolality 276 Calcium 9.0 Corrected Calcium 9.0 Phosphorus 4.1 Magnesium 2.1 Total Bilirubin 0.2 L AST 23 ALT 32 Alkaline Phosphatase 80 Total Protein 6.9 Albumin 4.5 Globulin 2.4 Albumin/Globulin Ratio 1.9 Quality Measures Quality Measures none Advance care planning discussed with:: patient Assessment & Plan Assessment Current Active Medications: Generic Name Dose Route Start Last Admin Trade Name Freq PRN Reason Stop Dose Admin Acetaminophen 650 mg 02/09/24 10:08 Acetaminophen 325 Mg Tablet PO 03/09/24 17:05 Q6H PRN Fever >100.3 Albuterol 2.5 mg 02/09/24 02:50 02/09/24 03:00 Albuterol Rt 2.5 Mg/0.5 Ml Nebu INH 03/10/24 03:59 2.5 mg Q2HR PRN Administration SHORTNESS OF BREATH OR WHEEZE Albuterol/Ipratropium 3 ml 02/08/24 17:30 02/09/24 05:58 Albuterol/Ipratropium (Duoneb) Rt Chayo 3 Ml Nebu INH 03/09/24 17:29 3 ml Q6HRRT RAPHAEL Administration Heparin Sodium (Porcine) 5,000 unit 02/08/24 17:30 02/09/24 13:52 Heparin Sod Inj 5000 Unit/Ml Vial SC 02/22/24 17:29 5,000 unit Q8HR RAPHAEL Administration Azithromycin 500 mg/ Sodium 250 mls @ 250 mls/hr 02/09/24 14:00 02/09/24 13:52 Chloride IV 02/12/24 13:59 250 mls/hr QDAY@1400 RAPHAEL Administration Ceftriaxone Sodium/Dextrose 50 mls @ 100 mls/hr 02/08/24 17:21 02/09/24 08:28 Rocephin/D5w 1gm Iv Premix IV 02/15/24 17:20 100 mls/hr QDAY RAPHAEL Administration Ipratropium [place] 0.5 mg 02/09/24 13:00 02/09/24 12:21 Ipratropium Rt 0.5 Mg/ 2.5 Ml Nebu INH 03/10/24 12:59 0.5 mg Q6HRRT RAPHAEL Administration Levalbuterol HCl 1.25 mg 02/09/24 13:00 02/09/24 12:21 Levalbuterol Rt 1.25 Mg/0.5 Ml Nebu INH 03/10/24 12:59 1.25 mg Q6HRRT RAPHAEL Administration Methylprednisolone Sodium Succinate 60 mg 02/09/24 09:00 02/09/24 08:28 Methylprednisolone Sod Succ 40 Mg Vial IVP 02/11/24 08:59 60 mg QDAY RAPHAEL Administration Nicotine 21 mg 02/09/24 13:45 02/09/24 13:52 Nicotine Patch 21 Mg/24 Hr Patch.Td24 TOP 03/10/24 13:44 21 mg QDAY RAPHAEL Administration Ondansetron HCl 4 mg 02/08/24 17:06 Ondansetron Inj 2 Mg/Ml Inj 2 Ml IV 03/09/24 17:05 Q6H PRN NAUSEA OR VOMITING Protocol Pantoprazole Sodium 40 mg 02/08/24 18:15 02/09/24 08:28 Pantoprazole Inj 40 Mg Vial IV 03/09/24 18:14 40 mg QDAY RAPHAEL Administration Sodium Chloride 3 ml 02/09/24 11:39 Sodium Chloride Rt Chayo 0.9% 3 Ml Nebu INH 03/10/24 11:38 PRN PRN SOLN Plan Ms. Ramirez is a 73-year-old female with past medical history significant for asthma for which she uses an albuterol inhaler daily. Patient also is a former smoker and smoked for 40 years approximately half a pack a day daily however patient quit smoking cigarettes 6 months ago. Patient states that last Sunday; came to the ED at [facility] for shortness of breath and was discharged home with antibiotics, her symptoms initially improved. However for the last couple days patient's shortness of breath progressively worsened without improvement with her albuterol inhaler, which prompted her to come to the ED. patient is admitted to the hospital for IV antibiotics as well as CTA to rule out pulmonary embolism. #Sepsis 2/2 #Community-acquired pneumonia -SIRS 3/4-tachycardia, tachypnea, leukocytosis (WBC 12.8) -Patient recently was sick for which she was discharged from the ED with antibiotics Plan: -Azithromycin 02/07- -Ceftriaxone 02/07- -Blood and sputum cultures pending -Cocci IgM pending #Acute hypoxic respiratory failure 2/2 # COPD exacerbation in the setting of #Hx of asthma #vs. pulmonary embolism #Pulmonary mass -Pt. have SOB for past 2 days with tachycardia and tachypnea -Pt. is a former smoker- smoked half a pack of cigarettes for 40 years, and quit 6 months ago -pt denies recent travel history or sick contacts, denies chest pain -Chest x-ray- COPD with moderate hyperexpansion, rounded masslike area in the right infrahilar region at least 4 cm, left base pneumonia Chest CT- COPD, Pulmonary artery hypertension, Wedge-shaped density radiating from the right hilar region and these 5.4 x 3.8cm most consistent with atelectasis, without definite endobronchial lesion Plan: -Incentive spirometery -DuoNebs every 6 hours- -Solu-Medrol 125 Mg x 1 given, Solu-Medrol 60 Mg daily -CTA negative for pulmonary embolism. Will consider bronchoscopy due to radiologic findings of dysfunction of the right bronchial system. Also noted to have a wedge-shaped parenchymal disease. -Bilateral venous Doppler pending Disposition: Telemetry DVT Prophylaxis: Heparin 5000 units SC Q8 hrs and SCD QSHIFT GI Prophylaxis: Pantoprozol-40 IV Qday Diet: Regular diet after nurse swallow screen Code status: DNR Plan of care discussed with supervising attending Dr. Dilan Krueger M.D. PGY-3
[2024-02-09 14:43] LABS: Cocci Serology, IgM Negative (Negative)
[2024-02-09 23:27] LABS: Base Excess, Venous 7 (-3-3); O2 Saturation, Venous 98 % (96-97); PCO2, Venous 95 mmHg (36-56); PO2, Venous 98 mmHg (15-58); pH, Venous 7.22 (7.33-7.66)
[2024-02-10] VITALS (81 sets, daily range): BP systolic 48–188; BP diastolic 37–107; PULSE 50–178; RESP 0–40; TEMP 36.1–36.5; O2SAT 73–100; BMI 16.0
[2024-02-10] MEDS: IPRATROPIUM RT 0.5 MG/ 2.5 ML NEBU INH ×4 (00:21→23:22)
[2024-02-10] MEDS: LEVALBUTEROL RT 1.25 MG/0.5 ML NEBU INH ×4 (00:21→23:21)
--- NOTE | 2024-02-10 02:09 | PC.RT ---
four unsuccessful ABG attempts complete. MD/RN aware, VBG ordered.
[2024-02-10 02:40] LABS: Base Excess, Venous 8 (-3-3); O2 Saturation, Venous 98 % (96-97); PCO2, Venous 46 mmHg (36-56); PO2, Venous 75 mmHg (15-58); pH, Venous 7.46 (7.33-7.66)
[2024-02-10] MEDS: HEPARIN SOD INJ 5000 UNIT/ML VIAL SC ×3 (05:13→21:28)
[2024-02-10 05:57] LABS: Basophils # (Auto) 0.1 Thou/mm3 (0.0-0.2); Basophils % (Auto) 0 % (0-2.5); Eosinophils % (Auto) 0 % (0-10); Immature Granulocytes % (Auto) 6 % (0-0); Lymphocytes # (Auto) 1.1 Thou/mm3 (1.0-4.8); Lymphocytes % (Auto) 4 % (10-50); Mean Corpuscular HGB Conc 30.6 g/dl (31.0-37.0); Mean Corpuscular Hemoglobin 31.8 pg (25.0-35.0); Mean Corpuscular Volume 104 fL (80-100); Monocytes # (Auto) 1.6 Thou/mm3 (0.0-0.8); Monocytes % (Auto) 7 % (0-12); Neutrophils # (Auto) 20.3 Thou/mm3 (1.8-7.7); Neutrophils % (Auto) 83 % (37-80); Nucleated Red Blood Cell % 0 /100 WBC (0); Platelet Count 345 Thou/mm3 (140-440); Red Blood Count 4.71 Miln/mm3 (4.00-5.20); White Blood Count 24.5 Thou/mm3 (3.6-11.0)
[2024-02-10 06:17] LABS: Alanine Aminotransferase 35 U/L (10-49); Albumin, Serum 4.7 gm/dL (3.4-4.8); Albumin/Globulin Ratio 1.7 (1.2-2.2); Alkaline Phosphatase 90 U/L (46-116); Anion Gap 6 (7-16); Aspartate Amino Transferase 41 U/L (0-34); BUN/Creatinine Ratio 25 Ratio (12-20); Bilirubin,Total 0.2 mg/dL (0.3-1.2); Blood Urea Nitrogen 15 mg/dL (9-23); Calcium 9.4 mg/dL (8.3-10.6); Calcium (Corrected) 9.4 mg/dL (8.5-10.1); Carbon Dioxide 38.8 mMol/L (20.0-31.0); Chloride 95 mMol/L (98-107); Creatinine (Component) 0.6 mg/dL (0.6-1.3); Globulin 2.8 gm/dL (2.3-3.5); Glucose 67 mg/dL (74-106); Magnesium 2.3 mg/dL (1.6-2.6); Osmolality,Calculated 278 (275-295); Potassium 5.6 mMol/L (3.4-5.1); Sodium 140 mMol/L (136-145); Total Protein 7.5 gm/dL (5.7-8.2); eGFR > 60 See Note
--- NOTE | 2024-02-10 08:48 | EKG_ITS ---
[facility] Test Date: 2024-02-10 Pat Name: ARMAND COLLAZO Department: Room: 54A Gender: Female Field Coordinator: GRAHAM : 1950 Requested By: Talha Brink Order Number: [id number] Reading MD: Talha Brink Measurements Intervals [place] Rate: 100 P: 78 DE: 114 QRS: -44 QRSD: 92 T: 37 QT: 315 QTc: 407 Interpretive Statements SINUS TACHYCARDIA WITH SHORT DE INTERVAL POSSIBLE LEFT ATRIAL ENLARGEMENT [-0.1mV P WAVE IN V1/V2] MARKED LEFT AXIS DEVIATION [QRS AXIS < -30] No previous ECG available for comparison /store/S0/[id number]/[id number]
[2024-02-10] MEDS: NICOTINE PATCH 21 MG/24 HR PATCH.TD24 TOP (09:55)
[2024-02-10] MEDS: PANTOPRAZOLE INJ 40 MG VIAL IV (09:56)
[2024-02-10] MEDS: cefTRIAXone/D5w 1gm IV premix 50 ML IV (09:56)
[2024-02-10] MEDS: ACETAMINOPHEN 325 MG TABLET 650 MG PO (10:55)
--- NOTE | 2024-02-10 11:13 | PC.NURSE ---
called GUITAR REPAIR TECHNICIAN at 1113 HR 160s-170s. pt complaining of back pain and headache. see GUITAR REPAIR TECHNICIAN form
--- NOTE | 2024-02-10 11:16 | EKG_ITS ---
[facility] Test Date: 2024-02-10 Pat Name: ARMAND COLLAZO Department: Room: S354A Gender: Female Veterinary Technician: GRAHAM : 1950 Requested By: Samina Fontenot Order Number: [id number] Reading MD: Samina Fontenot Measurements Intervals Randolph Rate: 97 P: NM: QRS: -70 QRSD: 79 T: -15 QT: 272 QTc: 346 Interpretive Statements ATRIAL FIBRILLATION INDETERMINATE AXIS LEFT ANTERIOR FASCICULAR BLOCK [QRS AXIS <= -45, QR IN I, RS IN II] MODERATE ST DEPRESSION [0.05+ mV ST DEPRESSION] WARNING: DATA QUALITY MAY AFFECT INTERPRETATION Compared to ECG 02/10/2024 09:05:28 Indeterminate axis now present Left anterior fascicular block now present ST (T wave) deviation now present Sinus tachycardia no longer present Short NM interval no longer present Left-axis deviation no longer present /store/S0/[id number].pdf
--- NOTE | 2024-02-10 11:20 | XR_ITS ---
Examination: AP chest single view Technique: AP portable semiupright chest single view Exam date and time: February 10, 2024 1131 hrs. Comparison February 08, 2024 Indications: Shortness of breath today. Findings: COPD with significant hyperexpansion Accentuation perihilar markings particularly right infrahilar Moderate osteopenia Parenchymal disease in the right middle lobe again noted, please see the CT chest report February 08, 2024 Impression: COPD Significant parenchymal disease in the right middle lobe again noted, please see the CT chest report February 08, 2024, consider bronchoscopy follow-up
[2024-02-10] MEDS: METOPROLOL TARTRATE INJ 1 MG/ML AMP 5 ML 5 MG IVP (11:26)
--- NOTE | 2024-02-10 11:43 | PD.RESEVENT ---
Documentation for date of: 02/10/24 Event Note Event Note: At approximately 13:15 rapid response was called. On arrival patient was noted to be in respiratory distress with respiratory rate into the 40s & 50s with heart rate into the 180s. Patient was put on BiPAP 10/5 and stat CXR, Troponin, EKG, CMP. EKG showed atrial fibrillation with rapid ventricular response. Patient was given push of IV metropolol with improvement of heart rate into the 100s. Amiodarone gtt started. Patient was given calcium gluconate X1 during rapid response for hyperkalemia on chemistry panel in am. ICU team consulted for acute hypoxic respiratory failure with hypercapnia and patient will be upgraded to ICU.
[2024-02-10 11:49] LABS: Base Excess, Venous 11 (-3-3); O2 Saturation, Venous 93 % (96-97); PCO2, Venous 95 mmHg (36-56); PO2, Venous 66 mmHg (15-58); pH, Venous 7.26 (7.33-7.66)
[2024-02-10] MEDS: AMIODARONE 150 MG IVPB 150 MG/100 ML BAG 600 MG IV (11:49)
[2024-02-10] MEDS: AMIODARONE 360 MG IVPB 360 MG/200 ML BAG 33.333 MG IV (12:04)
[2024-02-10] MEDS: CALCIUM GLUCONATE 10% INJ 1 GM/10 ML VIAL IV (12:06)
[2024-02-10 12:09] LABS: Troponin I 0.038 ng/mL (0.0-0.045)
[2024-02-10 14:26] LABS: Albumin, Serum 4.3 gm/dL (3.4-4.8); Anion Gap 6 (7-16); BUN/Creatinine Ratio 37 Ratio (12-20); Blood Urea Nitrogen 22 mg/dL (9-23); Calcium 9.5 mg/dL (8.3-10.6); Calcium (Corrected) 9.5 mg/dL (8.5-10.1); Carbon Dioxide > 40.0 mMol/L (20.0-31.0); Chloride 96 mMol/L (98-107); Creatinine (Component) 0.6 mg/dL (0.6-1.3); Glucose 122 mg/dL (74-106); Osmolality,Calculated 287 (275-295); Phosphorous 4.2 mg/dL (2.4-5.1); Potassium 5.2 mMol/L (3.4-5.1); Sodium 142 mMol/L (136-145); eGFR > 60 See Note
[2024-02-10] MEDS: AZITHROMYCIN INJ 500 MG in SODIUM CHLORIDE 0.9% 250 ML 250 ML 250 MG IV (14:48)
[2024-02-10 15:38] LABS: Collection Type, Urine Catheter
--- NOTE | 2024-02-10 15:48 | PC.NURSE ---
DR. RICHARDSON AND RESIDENT TALKED TO PT'S DAUGHTER BRYAN IN REGARD TO CHANGE OF CODE STATUS AND INTUBATION. DAUGHTER AGREED TO INTUBATION. IS SPEAKING TO ICU DOCTOR.
[2024-02-10 16:12] LABS: Bilirubin,Urine Negative (Negative); Blood,Urine Negative (Negative); Clarity,Urine Turbid (Clear/Hazy); Color,Urine Yellow (Lt Yel-Yel); Glucose, Urine Negative (Negative); Granular Casts,Urine 3 /hpf (0-1); Ketones,Urine Negative (Negative); Leukocyte Esterase,Urine Negative (Negative); Nitrite,Urine Negative (Negative); PH,Urine 5.5 (5.0-7.0); Protein,Urine 1+ (Neg - Trace); RBC,Urine 2 /hpf (0-3); Specific Gravity,Urine 1.023 (1.001-1.035); Squamous Epithelial Cell,Urine 1 /hpf (0-5); Urobilinogen,Urine Negative mg/dL (0.0-1.0); WBC,Urine 2 /hpf (0-5)
[2024-02-10 16:42] LABS: Base Excess 10 (-3-3); HCO3 41 mEq/L (20-26); Inspired Oxygen, FIO2 60 %; O2 Saturation 94 % (91-98); PCO2 95 mmHg (32.0-48.0); PO2 71 mmHg (83-108); pH, Arterial 7.25 (7.35-7.45)
[2024-02-10 16:47] LABS: Allen Test Performed/OK; Puncture Site Right Radial
[2024-02-10] MEDS: ROCURONIUM INJ 10 MG/ML VIAL 10 ML 37 MG IV (17:10)
[2024-02-10] MEDS: ETOMIDATE INJ 2 MG/ML VIAL 10 ML 20 MG IVP (17:10)
--- NOTE | 2024-02-10 17:14 | XR_ITS ---
Examination: AP chest single view Technique: Sitting AP portable chest single view Exam date and time: February 10, 2024 1733 hrs. Comparison February 09, 1999 2530 1:00 AM Indications: Hypoxic respiratory failure, COPD, pneumonia, postintubation today Findings: COPD with prominent hyperexpansion Mild bilateral perihilar bibasilar pneumonia Endotracheal tube tip 5.7 cm above marielena. The orogastric tube is in the stomach in satisfactory position Impression: COPD Mild bilateral pneumonia Endotracheal tube tip 5.7 cm above marielena
--- NOTE | 2024-02-10 17:27 | PD.RESPROC ---
Procedures Procedure Date / Time 02/10/24 1957 Procedural Time Out Time out performed: Yes Intubation Indication(s): acute Resp Failure Informed consent obtained: from patient and obtained from surrogate decision maker Time out done, and the following verified: correct patient, side and site, procedure, patient position and implants and/or equipment Sedative: etomidate Mg given: 20 Paralytic: rocuronium Mg given: 37 Laryngoscope: fiber optic video scope Assist device used: fiber optic device ET tube size: 7.5 ET tube uncuffed: Yes Tube secured depth (cm): 22 Tube secured location: lips Tube placement confirmation: visualized tube passing through cords, equal breath sounds bilaterally, no breath sounds over epigastrium and confirmation by capnometry Patient tolerated procedure: no complications EBL(ml): 0 Additional comments: Case discussed with Attending Dr. Barrios. Sheryl Kirkland PGY1
--- NOTE | 2024-02-10 17:49 | ESPR_ITS ---
<Statement entered by Madelyn Prabhakar DO - 02/11/24 22:04> Senior attestation: Patient was examined and case was reviewed with team including attending physician. Note reviewed, I agree with most of its contents and agree with the patient's care. In brief, patient is a 73 year old female with history of asthma who was admitted to the medical floors for sepsis secondary to community-acquired pneumonia and acute hypoxic respiratory failure secondary to COPD exacerbation. Patient was managed on floors, however was noted to have increased oxygen requirements that required BiPAP, however tachypnea persisted. On floors, patient was initially in DNR/DNI code status however primary team had discussion with patient's family, upon which the decision was made to switch to full code status. Given concerns of impending respiratory compromise, ICU team was consulted and decision was made to intubate patient and place on mechanical ventilation. Patient was upgraded to ICU, intubated, and started on fentanyl sedation, additional sedation to be added if needed. Amiodarone drip will be continued for patient's new-onset atrial fibrillation, will continue rocephin and azithromycin for AHRF 2/2 CAP with breathing treatments prn. Madelyn Prabhakar DO PGY-3 Documentation for date of: 02/10/24 Subjective Subjective Interval history: Ms. Ramirez is a 73-year-old female with past medical history significant for asthma who presented to [facility] with a chief complaint of shortness of breath. Patient reported using levalbuterol inhaler daily, also is a former smoker and smoked for 40 years approximately half a pack a day daily however patient quit smoking cigarettes 6 months ago. Patient presented to ED on 02/02 for shortness of breath and was discharged home with antibiotics, her symptoms initially improved. However post to discharge patient's shortness of breath progressively worsened without improvement with her albuterol inhaler, which prompted her to come to the ED again on 02/07. Patient ambulates without difficulty, or shortness of breath. Patient denies recent travel history or sick contacts. In ED patient was saturating at 95% on 15 L via Oxy mask, was tachycardic and hypertensive. Bedside COVID was negative, lab findings did show leukocytosis WBC 12.8, polycythemia hemoglobin 16.4, BNP 369. On imaging chest x-ray Chest x-ray- COPD with moderate hyperexpansion, rounded masslike area in the right infrahilar region at least 4 cm, left base pneumonia, Chest CT- COPD, Pulmonary artery hypertension, Wedge-shaped density radiating from the right hilar region and these 5.4 x 3.8cm most consistent with atelectasis, without definite endobronchial lesion In the ED patient received breathing treatment and Solu- Medrol. Patient was admitted to floors for sepsis secondary to community- acquired pneumonia and acute hypoxic respiratory failure secondary to COPD exacerbation and suspicion of PE. Patient's hospital course was complicated by increased oxygen requirements, patient was placed on BiPAP, significant respiratory distress noted with respiratory rate in 40s and 50s, patient noted to be in atrial fibrillation, was started on amiodarone drip, initially patient was DNR/DNI, primary team discussed case with patient's family and they wanted to proceed with intubation hence patient was upgraded to ICU for further management and intubation. Exam Vital Signs Temp Pulse Resp BP Pulse Ox O2 Del Method O2 Flow Rate 97.1 F 63 31 H 143/78 H 100 BiPAP 6 02/10/24 16:00 02/10/24 17:30 02/10/24 16:00 02/10/24 17:30 02/10/24 17:30 02/10/24 16:00 02/10/24 16:00 FiO2 60 02/10/24 17:30 Narrative Exam GENERAL: Alert, on BiPAP. Awake, thin elderly female NEURO: no focal neurological deficits HEENT: Atraumatic, Normocephalic. mucous membranes moist. Eyes open, symmetrical, & clear HEART: Normal Heart Sounds, no murmurs LUNGS: Bilateral wheezing appreciated, no crackles. ABDOMEN: soft, non-distended, non-tender, bowel sounds heard, no guarding or rebound tenderness SKIN: No Rash or ecchymoses EXTREMITIES: Trace edema in LE, no tenderness, able to move all 4 extremities, pedal pulses palpated Objective Labs 02/12/24 05:00 02/11/24 02:00 Labs: Laboratory Results - last 24 hr 02/09/24 02/10/24 02/10/24 23:20 02:18 05:10 WBC 24.5 H D RBC 4.71 Hgb 15.0 Hct 49.0 H MCV 104 H MCH 31.8 MCHC 30.6 L RDW Std Deviation 54.0 H Plt Count 345 Neut % (Auto) 83 H Lymph % (Auto) 4 L Roosevelt % (Auto) 7 Eos % (Auto) 0 Baso % (Auto) 0 Neut # (Auto) 20.3 H Lymph # (Auto) 1.1 Roosevelt # (Auto) 1.6 H Eos # (Auto) 0.0 Baso # (Auto) 0.1 Immature Gran # (Auto) 1.40 H Absolute Nucleated RBC 0.00 Immature Gran % 6 H Nucleated RBC % 0 Puncture Site ABG pH ABG pCO2 ABG pO2 ABG HCO3 ABG O2 Saturation ABG Base Excess VBG pH 7.22 L 7.46 VBG pCO2 95 H 46 D VBG pO2 98 H 75 H D VBG O2 Sat (Courtney) 98 H 98 H VBG Base Excess 7 H 8 H FiO2 Sodium 140 Potassium 5.6 H D Chloride 95 L Carbon Dioxide 38.8 H Anion Gap 6 L BUN 15 Creatinine 0.6 Estim Creat Clear Calc 50.0 L eGFR > 60 BUN/Creatinine Ratio 25 H Glucose 67 L D Calculated Osmolality 278 Calcium 9.4 Corrected Calcium 9.4 Phosphorus 4.0 Magnesium 2.3 Total Bilirubin 0.2 L AST 41 H ALT 35 Alkaline Phosphatase 90 Troponin I Total Protein 7.5 Albumin 4.7 Globulin 2.8 Albumin/Globulin Ratio 1.7 Ur Collection Type Urine Color Urine Clarity Urine pH Ur Specific [place] Urine Protein Urine Glucose (UA) Urine Ketones Urine Blood Urine Nitrite Urine Bilirubin Urine Urobilinogen (Auto) Ur Leukocyte Esterase Urine RBC Urine WBC Ur Squamous Epith Cells Urine Bacteria Granular Casts 02/10/24 02/10/24 02/10/24 11:43 13:35 14:50 WBC RBC Hgb Hct MCV MCH MCHC RDW Std Deviation Plt Count Neut % (Auto) Lymph % (Auto) Roosevelt % (Auto) Eos % (Auto) Baso % (Auto) Neut # (Auto) Lymph # (Auto) Roosevelt # (Auto) Eos # (Auto) Baso # (Auto) Immature Gran # (Auto) Absolute Nucleated RBC Immature Gran % Nucleated RBC % Puncture Site ABG pH ABG pCO2 ABG pO2 ABG HCO3 ABG O2 Saturation ABG Base Excess VBG pH 7.26 L VBG pCO2 95 H D VBG pO2 66 H VBG O2 Sat (Courtney) 93 L VBG Base Excess 11 H FiO2 Sodium 142 Potassium 5.2 H Chloride 96 L Carbon Dioxide > 40.0 H Anion Gap 6 L BUN 22 Creatinine 0.6 Estim Creat Clear Calc 50.0 L eGFR > 60 BUN/Creatinine Ratio 37 H Glucose 122 H D Calculated Osmolality 287 Calcium 9.5 Corrected Calcium 9.5 Phosphorus 4.2 Magnesium Total Bilirubin AST ALT Alkaline Phosphatase Troponin I 0.038 Total Protein Albumin 4.3 Globulin Albumin/Globulin Ratio Ur Collection Type Catheter Urine Color Yellow Urine Clarity Turbid A Urine pH 5.5 Ur Specific [place] 1.023 Urine Protein 1+ A Urine Glucose (UA) Negative Urine Ketones Negative Urine Blood Negative Urine Nitrite Negative Urine Bilirubin Negative Urine Urobilinogen (Auto) Negative Ur Leukocyte Esterase Negative Urine RBC 2 Urine WBC 2 Ur Squamous Epith Cells 1 Urine Bacteria None Granular Casts 3 H 02/10/24 16:30 WBC RBC Hgb Hct MCV MCH MCHC RDW Std Deviation Plt Count Neut % (Auto) Lymph % (Auto) [place] % (Auto) Eos % (Auto) Baso % (Auto) Neut # (Auto) Lymph # (Auto) Roosevelt # (Auto) Eos # (Auto) Baso # (Auto) Immature Gran # (Auto) Absolute Nucleated RBC Immature Gran % Nucleated RBC % Puncture Site Right Radial ABG pH 7.25 L ABG pCO2 95 H* ABG pO2 71 L ABG HCO3 41 H ABG O2 Saturation 94 ABG Base Excess 10 H VBG pH VBG pCO2 VBG pO2 VBG O2 Sat (Courtney) VBG Base Excess FiO2 60 Sodium Potassium Chloride Carbon Dioxide Anion Gap BUN Creatinine Estim Creat Clear Calc eGFR BUN/Creatinine Ratio Glucose Calculated Osmolality Calcium Corrected Calcium Phosphorus Magnesium Total Bilirubin AST ALT Alkaline Phosphatase Troponin I Total Protein Albumin Globulin Albumin/Globulin Ratio Ur Collection Type Urine Color Urine Clarity Urine pH Ur Specific [place] Urine Protein Urine Glucose (UA) Urine Ketones Urine Blood Urine Nitrite Urine Bilirubin Urine Urobilinogen (Auto) Ur Leukocyte Esterase Urine RBC Urine WBC Ur Squamous Epith Cells Urine Bacteria Granular Casts ABG Interpretation ABG results: 02/09/24 02/10/24 02/10/24 23:20 02:18 11:43 ABG pH ABG pCO2 ABG pO2 ABG HCO3 ABG O2 Saturation ABG Base Excess VBG pH 7.22 L 7.46 7.26 L VBG pCO2 95 H 46 D 95 H D VBG pO2 98 H 75 H D 66 H VBG Base Excess 7 H 8 H 11 H 02/10/24 16:30 ABG pH 7.25 L ABG pCO2 95 H* ABG pO2 71 L ABG HCO3 41 H ABG O2 Saturation 94 ABG Base Excess 10 H VBG pH VBG pCO2 VBG pO2 VBG Base Excess Quality Measures Quality Measures none Advance care planning discussed with:: patient Assessment & Plan Assessment Current Active Medications: Generic Name Dose Route Start Last Admin Trade Name Freq PRN Reason Stop Dose Admin Acetaminophen 650 mg 02/09/24 10:08 02/10/24 10:55 Acetaminophen 325 Mg Tablet PO 03/09/24 17:05 650 mg Q6H PRN Administration Fever >100.3 Dextrose 25 ml 02/10/24 15:31 Dextrose 50%-Water Inj 50 Ml Syringe IV 03/11/24 15:30 Q15MIN PRN BG 50-70 responsive npo pt Dextrose 50 ml 02/10/24 15:31 Dextrose 50%-Water Inj 50 Ml Syringe IV 03/11/24 15:30 Q15MIN PRN BG <50 OR BG <70 & pt unresponsive Glucagon 1 mg 02/10/24 15:31 Glucagon Inj 1 Mg Vial IM Q15MIN PRN BG <70, and no IV access Heparin Sodium (Porcine) 5,000 unit 02/08/24 17:30 02/10/24 14:49 Heparin Sod Inj 5000 Unit/Ml Vial SC 02/22/24 17:29 5,000 unit Q8HR RAPHAEL Administration Azithromycin 500 mg/ Sodium 250 mls @ 250 mls/hr 02/09/24 14:00 02/10/24 14:48 Chloride IV 02/12/24 13:59 250 mls/hr QDAY@1400 RAPHAEL Administration Ceftriaxone Sodium/Dextrose 50 mls @ 100 mls/hr 02/08/24 17:21 02/10/24 09:56 Rocephin/D5w 1gm Iv Premix IV 02/15/24 17:20 100 mls/hr QDAY RAPHAEL Administration Amiodarone HCl/Dextrose 360 mg in 200 mls @ 16.667 mls/hr 02/10/24 17:39 Nexterone Ivpb IV 02/11/24 17:38 .Q12H RAPHAEL Fentanyl Citrate 2,500 mcg in 250 mls @ 2.5 mls/hr 02/10/24 16:50 Sublimaze Inj 2,500 Mcg/250 Ml Bag IV 02/15/24 16:49 .Q24H PRN PER PROTOCOL Protocol 25 MCG/HR Norepinephrine Bitartrate 16 mg in 250 mls @ 1.75 mls/hr 02/10/24 17:17 Levophed In Ns 16mg/250ml IV 03/11/24 17:16 .Q24H PRN PER PROTOCOL Protocol 0.05 MCG/KG/MIN Ipratropium [place] 0.5 mg 02/09/24 13:00 02/10/24 11:48 Ipratropium Rt 0.5 Mg/ 2.5 Ml Nebu INH 03/10/24 12:59 0.5 mg Q6HRRT RAPHAEL Administration Levalbuterol HCl 1.25 mg 02/09/24 13:00 02/10/24 11:48 Levalbuterol Rt 1.25 Mg/0.5 Ml Nebu INH 03/10/24 12:59 1.25 mg Q6HRRT RAPHAEL Administration Methylprednisolone Sodium Succinate 60 mg 02/09/24 09:00 02/10/24 09:55 Methylprednisolone Sod Succ 40 Mg Vial IVP 02/11/24 08:59 60 mg QDAY RAPHAEL Administration Nicotine 21 mg 02/09/24 13:45 02/10/24 09:55 Nicotine Patch 21 Mg/24 Hr Patch.Td24 TOP 03/10/24 13:44 21 mg QDAY RAPHAEL Administration Ondansetron HCl 4 mg 02/08/24 17:06 Ondansetron Inj 2 Mg/Ml Inj 2 Ml IV 03/09/24 17:05 Q6H PRN NAUSEA OR VOMITING Protocol Pantoprazole Sodium 40 mg 02/08/24 18:15 02/10/24 09:56 Pantoprazole Inj 40 Mg Vial IV 03/09/24 18:14 40 mg QDAY RAPHAEL Administration Sodium Chloride 3 ml 02/09/24 11:39 Sodium Chloride Rt Chayo 0.9% 3 Ml Nebu INH 03/10/24 11:38 PRN PRN SOLN Plan Assessment and Plan: Summary: Ms. Ramirez is a 73-year-old female with history of asthma who presented to [facility] with chief complaint of shortness of breath, patient was started on IV antibiotics, IV steroids patient's respiratory status continued to worsen and patient was upgraded to ICU for further management of acute hypercapnic/hypoxic respiratory failure secondary to COPD exacerbation and community-acquired pneumonia. Neurological Alert, awake, agitated on BiPAP in significant respiratory distress. Patient will be intubated and sedated. Cardiology #Atrial fibrillation with rapid ventricular response, new onset Patient had a rapid response today, found to be in A-fib RVR with heart rate more than 180. Has no history of atrial fibrillation. [id number] Score: 3 Plan: -Continue amiodarone drip -Telemonitoring -Will consider starting patient on anticoagulation #Hypertension Patient is on lisinopril at home Will hold patient blood pressure soft Pulmonary #Acute hypoxic, hypercapnic respiratory failure secondary to #COPD exacerbation #Community-acquired pneumonia, failed outpatient therapy #History of asthma Patient reported history of asthma, reports using levalbuterol inhaler at home. Patient was recently discharged from ED on PO antibiotics, had progressive worsening Patient is chronic smoker smoked full pack of cigarettes for 40 years, presented with shortness of breath Chest x-ray- COPD with moderate hyperexpansion, rounded masslike area in the right infrahilar region at least 4 cm, left base pneumonia Chest CT- COPD, Pulmonary artery hypertension, Wedge-shaped density radiating from the right hilar region and these 5.4 x 3.8cm most consistent with atelectasis, without definite endobronchial lesion VBG 02/10/24 shows pH 7.26, pCO2 95, pO2 66 Plan: -Patient will be intubated, started on mechanical ventilation -Continue levalbuterol every 4 hours, ipratropium every 4 hour -Continue Solu-Medrol -Leave albuterol every 2 hours as needed, ipratropium every 2 hours as needed -Continue ceftriaxone and azithromycin -Tylenol as needed for fever Gastrointestinal GI prophylaxis: Pantoprazole 40 mg IV daily Renal/Genitourinary #Hyperkalemia Patient had episode of hyperkalemia during hospitalization Potassium 5.2, monitor CMP in a.m. Endocrine Stable Hematology #Leukocytosis Treat underlying condition #Polycythemia H/O of smoking Monitor CBC in a.m. Infectious Disease #Sepsis #Community-acquired pneumonia Patient presented with tachycardia tachypnea and leukocytosis Was recently discharged from ED on antibiotics for suspicion of sepsis Cocci IgM negative, IgG pending, bedside COVID-negative Sputum culture negative, blood culture negative for 48 hours Plan: Continue ceftriaxone and azithromycin Tylenol as needed for fever Ordered RSV, Legionella, MRSA nasal screen, influenza DVT prophylaxis: Heparin SC every 8 hours GI prophylaxis: Protonix 40 mg IV daily Diet: N.p.o. Lines: Peripheral IV Code status: Full code Disposition: Will be admitted to ICU, intubated sedated and started on mechanical ventilation Case discussed with Attending Dr. Andrew and Dr. Prabhakar PGY3. Sheryl Kirkland PGY1 Attending Provider Attestation/Addendum I did not see the patient the above date of service. I was notified by the above resident, Sheryl Kirkland MD about upgrade to ICU. Patient promptly intubated based on failure on noninvasive positive pressure ventilation. Patient with significant difficulty achieving adequate sedation allow synchrony with ventilator. Paralytics were utilized to ensure synchronization and optimization of IT ratio with adjustments in flow and tidal volume. Tolerate respiratory acidosis with goal to ensure that she does not have hemodynamic compromise secondary to air trapping/hyperinflation associated with severe obstruction. Optimization with steroids, bronchodilators, and empiric antibiotics were discussed. I will follow-up with the patient tomorrow morning. I remain available overnight for any issues should they arise.
[2024-02-10] MEDS: fentaNYL 2,500 MCG/250 ML BAG 2,500 MCG/250 ML BAG IV (17:50)
[2024-02-10] MEDS: DEXTROSE 50%-WATER INJ 50 ML SYRINGE 100 ML IV (17:57)
[2024-02-10] MEDS: INSULIN HUM REGULAR 1 UNIT/0.01 ML (PER UNIT) 5 UNIT IV (17:58)
[2024-02-10] MEDS: AMIODARONE 360 MG IVPB 360 MG/200 ML BAG 16.667 MG IV (18:47)
--- NOTE | 2024-02-10 18:53 | ESPR_ITS ---
Documentation for date of: 02/10/24 Subjective Subjective Interval history: 02/09: overnight team reported pt. had increased work of breathing and tachypnea therefor she was placed on biPaP. Pt. is seen and examined at bedside, Pt. is still on Bipap, Somnolent pts daughters, sister and friend are at bedside. Pts daughters mentioned the pt is a heavy smoker and smokes more than 1 pack a day and that she has HTN but pt. is not compliant with her medications. Pt's daughters also mentioned that their mother wanted to change code status from DNR to full code. [facility] team was unable to get ABG therefore VBG was ordered. Pt was found to be hypercapnic and ICU team consulted for acute hypoxic respiratory failure with hypercapnia and patient will be upgraded to ICU for possible intubation. Exam Vital Signs Temp Pulse Resp BP Pulse Ox O2 Del Method O2 Flow Rate 97.1 F 63 31 H 95/47 L 100 BiPAP 6 02/10/24 16:00 02/10/24 18:47 02/10/24 16:00 02/10/24 18:47 02/10/24 17:30 02/10/24 16:00 02/10/24 16:00 FiO2 60 02/10/24 17:30 Narrative Exam GENERAL: A&Ox3 . Awake, thin elderly female NEURO: no focal neurological deficits HEENT: Atraumatic, Normocephalic. mucous membranes moist. Eyes open, symmetrical, & clear HEART: Normal Heart Sounds LUNGS: Clear to auscultation with no wheezing or crackles. ABDOMEN: soft, non-distended, non-tender, bowel sounds heard, no guarding or rebound tenderness SKIN: No Rash or ecchymoses EXTREMITIES: non pitting edemain LE, no tenderness, able to move all 4 extremities, pedal pulses palpated Objective Labs 02/10/24 05:10 02/10/24 13:35 Labs: Laboratory Results - last 24 hr 02/09/24 02/10/24 02/10/24 23:20 02:18 05:10 WBC 24.5 H D RBC 4.71 Hgb 15.0 Hct 49.0 H MCV 104 H MCH 31.8 MCHC 30.6 L RDW Std Deviation 54.0 H Plt Count 345 Neut % (Auto) 83 H Lymph % (Auto) 4 L [place] % (Auto) 7 Eos % (Auto) 0 Baso % (Auto) 0 Neut # (Auto) 20.3 H Lymph # (Auto) 1.1 [place] # (Auto) 1.6 H Eos # (Auto) 0.0 Baso # (Auto) 0.1 Immature Gran # (Auto) 1.40 H Absolute Nucleated RBC 0.00 Immature Gran % 6 H Nucleated RBC % 0 Puncture Site ABG pH ABG pCO2 ABG pO2 ABG HCO3 ABG O2 Saturation ABG Base Excess VBG pH 7.22 L 7.46 VBG pCO2 95 H 46 D VBG pO2 98 H 75 H D VBG O2 Sat (Courtney) 98 H 98 H VBG Base Excess 7 H 8 H FiO2 Sodium 140 Potassium 5.6 H D Chloride 95 L Carbon Dioxide 38.8 H Anion Gap 6 L BUN 15 Creatinine 0.6 Estim Creat Clear Calc 50.0 L eGFR > 60 BUN/Creatinine Ratio 25 H Glucose 67 L D Calculated Osmolality 278 Calcium 9.4 Corrected Calcium 9.4 Phosphorus 4.0 Magnesium 2.3 Total Bilirubin 0.2 L AST 41 H ALT 35 Alkaline Phosphatase 90 Troponin I Total Protein 7.5 Albumin 4.7 Globulin 2.8 Albumin/Globulin Ratio 1.7 Ur Collection Type Urine Color Urine Clarity Urine pH Ur Specific [place] Urine Protein Urine Glucose (UA) Urine Ketones Urine Blood Urine Nitrite Urine Bilirubin Urine Urobilinogen (Auto) Ur Leukocyte Esterase Urine RBC Urine WBC Ur Squamous Epith Cells Urine Bacteria Granular Casts 02/10/24 02/10/24 02/10/24 11:43 13:35 14:50 WBC RBC Hgb Hct MCV MCH MCHC RDW Std Deviation Plt Count Neut % (Auto) Lymph % (Auto) [place] % (Auto) Eos % (Auto) Baso % (Auto) Neut # (Auto) Lymph # (Auto) [place] # (Auto) Eos # (Auto) Baso # (Auto) Immature Gran # (Auto) Absolute Nucleated RBC Immature Gran % Nucleated RBC % Puncture Site ABG pH ABG pCO2 ABG pO2 ABG HCO3 ABG O2 Saturation ABG Base Excess VBG pH 7.26 L VBG pCO2 95 H D VBG pO2 66 H VBG O2 Sat (Courtney) 93 L VBG Base Excess 11 H FiO2 Sodium 142 Potassium 5.2 H Chloride 96 L Carbon Dioxide > 40.0 H Anion Gap 6 L BUN 22 Creatinine 0.6 Estim Creat Clear Calc 50.0 L eGFR > 60 BUN/Creatinine Ratio 37 H Glucose 122 H D Calculated Osmolality 287 Calcium 9.5 Corrected Calcium 9.5 Phosphorus 4.2 Magnesium Total Bilirubin AST ALT Alkaline Phosphatase Troponin I 0.038 Total Protein Albumin 4.3 Globulin Albumin/Globulin Ratio Ur Collection Type Catheter Urine Color Yellow Urine Clarity Turbid A Urine pH 5.5 Ur Specific [place] 1.023 Urine Protein 1+ A Urine Glucose (UA) Negative Urine Ketones Negative Urine Blood Negative Urine Nitrite Negative Urine Bilirubin Negative Urine Urobilinogen (Auto) Negative Ur Leukocyte Esterase Negative Urine RBC 2 Urine WBC 2 Ur Squamous Epith Cells 1 Urine Bacteria None Granular Casts 3 H 02/10/24 16:30 WBC RBC Hgb Hct MCV MCH MCHC RDW Std Deviation Plt Count Neut % (Auto) Lymph % (Auto) [place] % (Auto) Eos % (Auto) Baso % (Auto) Neut # (Auto) Lymph # (Auto) [place] # (Auto) Eos # (Auto) Baso # (Auto) Immature Gran # (Auto) Absolute Nucleated RBC Immature Gran % Nucleated RBC % Puncture Site Right Radial ABG pH 7.25 L ABG pCO2 95 H* ABG pO2 71 L ABG HCO3 41 H ABG O2 Saturation 94 ABG Base Excess 10 H VBG pH VBG pCO2 VBG pO2 VBG O2 Sat (Courtney) VBG Base Excess FiO2 60 Sodium Potassium Chloride Carbon Dioxide Anion Gap BUN Creatinine Estim Creat Clear Calc eGFR BUN/Creatinine Ratio Glucose Calculated Osmolality Calcium Corrected Calcium Phosphorus Magnesium Total Bilirubin AST ALT Alkaline Phosphatase Troponin I Total Protein Albumin Globulin Albumin/Globulin Ratio Ur Collection Type Urine Color Urine Clarity Urine pH Ur Specific [place] Urine Protein Urine Glucose (UA) Urine Ketones Urine Blood Urine Nitrite Urine Bilirubin Urine Urobilinogen (Auto) Ur Leukocyte Esterase Urine RBC Urine WBC Ur Squamous Epith Cells Urine Bacteria Granular Casts ABG Interpretation ABG results: 02/09/24 02/10/24 02/10/24 23:20 02:18 11:43 ABG pH ABG pCO2 ABG pO2 ABG HCO3 ABG O2 Saturation ABG Base Excess VBG pH 7.22 L 7.46 7.26 L VBG pCO2 95 H 46 D 95 H D VBG pO2 98 H 75 H D 66 H VBG Base Excess 7 H 8 H 11 H 02/10/24 16:30 ABG pH 7.25 L ABG pCO2 95 H* ABG pO2 71 L ABG HCO3 41 H ABG O2 Saturation 94 ABG Base Excess 10 H VBG pH VBG pCO2 VBG pO2 VBG Base Excess Quality Measures Quality Measures none Advance care planning discussed with:: patient and child Assessment & Plan Assessment Current Active Medications: Generic Name Dose Route Start Last Admin Trade Name Freq PRN Reason Stop Dose Admin Acetaminophen 650 mg 02/09/24 10:08 02/10/24 10:55 Acetaminophen 325 Mg Tablet PO 03/09/24 17:05 650 mg Q6H PRN Administration Fever >100.3 Dextrose 25 ml 02/10/24 15:31 Dextrose 50%-Water Inj 50 Ml Syringe IV 03/11/24 15:30 Q15MIN PRN BG 50-70 responsive npo pt Dextrose 50 ml 02/10/24 15:31 Dextrose 50%-Water Inj 50 Ml Syringe IV 03/11/24 15:30 Q15MIN PRN BG <50 OR BG <70 & pt unresponsive Glucagon 1 mg 02/10/24 15:31 Glucagon Inj 1 Mg Vial IM Q15MIN PRN BG <70, and no IV access Heparin Sodium (Porcine) 5,000 unit 02/08/24 17:30 02/10/24 14:49 Heparin Sod Inj 5000 Unit/Ml Vial SC 02/22/24 17:29 5,000 unit Q8HR RAPHAEL Administration Azithromycin 500 mg/ Sodium 250 mls @ 250 mls/hr 02/09/24 14:00 02/10/24 14:48 Chloride IV 02/12/24 13:59 250 mls/hr QDAY@1400 RAPHAEL Administration Ceftriaxone Sodium/Dextrose 50 mls @ 100 mls/hr 02/08/24 17:21 02/10/24 09:56 Rocephin/D5w 1gm Iv Premix IV 02/15/24 17:20 100 mls/hr QDAY RAPHAEL Administration Amiodarone HCl/Dextrose 360 mg in 200 mls @ 16.667 mls/hr 02/10/24 17:39 02/10/24 18:47 Nexterone Ivpb IV 02/11/24 17:38 16.667 mls/hr .Q12H RAPHAEL Administration Fentanyl Citrate 2,500 mcg in 250 mls @ 2.5 mls/hr 02/10/24 16:50 02/10/24 18:00 Sublimaze Inj 2,500 Mcg/250 Ml Bag IV 02/15/24 16:49 75 mcg/hr .Q24H PRN 7.5 mls/hr PER PROTOCOL Titration Protocol 25 MCG/HR Norepinephrine Bitartrate 16 mg in 250 mls @ 1.75 mls/hr 02/10/24 17:17 Levophed In Ns 16mg/250ml IV 03/11/24 17:16 .Q24H PRN PER PROTOCOL Protocol 0.05 MCG/KG/MIN Ipratropium [place] 0.5 mg 02/09/24 13:00 02/10/24 11:48 Ipratropium Rt 0.5 Mg/ 2.5 Ml Nebu INH 03/10/24 12:59 0.5 mg Q6HRRT RAPHAEL Administration Levalbuterol HCl 1.25 mg 02/09/24 13:00 02/10/24 11:48 Levalbuterol Rt 1.25 Mg/0.5 Ml Nebu INH 03/10/24 12:59 1.25 mg Q6HRRT RAPHAEL Administration Methylprednisolone Sodium Succinate 60 mg 02/09/24 09:00 02/10/24 09:55 Methylprednisolone Sod Succ 40 Mg Vial IVP 02/11/24 08:59 60 mg QDAY RAPHAEL Administration Nicotine 21 mg 02/09/24 13:45 02/10/24 09:55 Nicotine Patch 21 Mg/24 Hr Patch.Td24 TOP 03/10/24 13:44 21 mg QDAY RAPHAEL Administration Ondansetron HCl 4 mg 02/08/24 17:06 Ondansetron Inj 2 Mg/Ml Inj 2 Ml IV 03/09/24 17:05 Q6H PRN NAUSEA OR VOMITING Protocol Pantoprazole Sodium 40 mg 02/08/24 18:15 02/10/24 09:56 Pantoprazole Inj 40 Mg Vial IV 03/09/24 18:14 40 mg QDAY RAPHAEL Administration Sodium Chloride 3 ml 02/09/24 11:39 Sodium Chloride Rt [place] 0.9% 3 Ml Nebu INH 03/10/24 11:38 PRN PRN SOLN Plan Ms. Ramirez is a 73-year-old female with past medical history significant for asthma for which she uses an albuterol inhaler daily. Patient also is a former smoker and smoked for 40 years approximately half a pack a day daily however patient quit smoking cigarettes 6 months ago. Patient states that last Sunday; came to the ED at [facility] for shortness of breath and was discharged home with antibiotics, her symptoms initially improved. However for the last couple days patient's shortness of breath progressively worsened without improvement with her albuterol inhaler, which prompted her to come to the ED. patient is admitted to the hospital for IV antibiotics as well as CTA to rule out pulmonary embolism. #Sepsis 2/ #Community-acquired pneumonia #leukocytosis -SIRS 3-tachycardia, tachypnea, leukocytosis (WBC 24.5) -Patient recently was sick for which she was discharged from the ED with antibiotics Plan: -Azithromycin 02/07- -Ceftriaxone 02/07- -Blood Preliminary report 03/09 no growth after 48hours -sputum cultures 3+ mixed sarah - likely contamination -Cocci IgM pending #Acute hypoxic respiratory failure 03/09 #COPD exacerbation in the setting of #Hx of asthma #vs. pulmonary embolism #Pulmonary mass -Pt. have SOB for past 2 days with tachycardia and tachypnea -Pt. is a current smoker- smoked full pack of cigarettes for 40 years -pt denies recent travel history or sick contacts, denies chest pain -Chest x-ray- COPD with moderate hyperexpansion, rounded masslike area in the right infrahilar region at least 4 cm, left base pneumonia Chest CT- COPD, Pulmonary artery hypertension, Wedge-shaped density radiating from the right hilar region and these 5.4 x 3.8cm most consistent with atelectasis, without definite endobronchial lesion Plan: -Incentive spirometery -DuoNebs every 6 hours- -Solu-Medrol 125 Mg x 1 given, Solu-Medrol 60 Mg daily -CTA negative for pulmonary embolism. Will consider bronchoscopy due to radiologic findings of dysfunction of the right bronchial system. Also noted to have a wedge-shaped parenchymal disease. -Bilateral venous Doppler pending -start biPAP maintain O2 sat above 88% -VBG - pH 7.25, pCO2 95, pO2 71, HCO3 41 -Consulted ICU, as patient may require intubation due to persistently increased work of breath and decreased O2 saturation Disposition: Pt. is upgraded from tele to ICU for AHRF requiring intubation DVT Prophylaxis: Heparin 5000 units SC Q8 hrs and SCD QSHIFT GI Prophylaxis: Pantoprozol-40 IV Qday Diet: Regular diet after nurse swallow screen Code status: Full Assessment and plan discussed with my attending physician Dr. Dilan Brink (PGY-1)- Internal medicine resident
--- NOTE | 2024-02-10 19:02 | PC.RT ---
PT removed from ventilator by RT for Desat to 70% and bagged back up to 97%. MD Carpenter advised RN to further sedate PT at this time. PT placed back on Ventilator maintaining Sp02 at 97%.
[2024-02-10] MEDS: Norepinephrine/NS 16mg/250ml 16 MG/250 ML BAG 1.75 MG IV (19:03)
[2024-02-10] MEDS: VASOPRESSIN IN NS IVPB 20 UNIT/100 ML BAG 9 UNIT IV (19:28)
[2024-02-10] MEDS: PROPOFOL 1,000 MG IVPB 1,000 MG/100 ML VIAL 6.72 MG IV (19:30)
--- NOTE | 2024-02-10 19:35 | PC.NURSE ---
At 1830 Patient suddenly desaturated to 70%. Pt was not alarming the vent or moving around in bed. RT called to assist. I increased fi02 to 100% and suctioned patient. Not much phlegm came out. Suddenly pt became hypotensive also and bradycardic at 58. Dr. Lyons at bedside asked for levophed to start immediately.
[2024-02-10] MEDS: ROCURONIUM INJ 10 MG/ML VIAL 10 ML 30 MG IVP (19:55)
--- NOTE | 2024-02-10 20:23 | PC.RT ---
PT removed from Vent to be Bagged @ approx. 1930. PT bagged and tx given with Spo2 increased to 88%. vent changes made as follows: Vt 270, PEEP 8, RR18. Changes made per MD Andrew for concerns of air trapping. PT placed back on ventilator with Spo2 of 97% and comfortable.
[2024-02-10] MEDS: CISATRACURIUM INJ 200 MG in SODIUM CHLORIDE 0.9% 500 ML 500 ML 5.824 MG IV (20:35)
--- NOTE | 2024-02-10 20:56 | XR_ITS ---
Examination: AP chest single view Technique: AP portable semiupright chest single view Exam date and time: February 10, 2024 2106 hrs. Comparison February 09, 1999 2530 9:00 AM Indications: Hypoxic respiratory failure, postintubation, post central line placement Findings: COPD with significant hyperexpansion Bibasilar pneumonia, consider aspiration pneumonia Endotracheal tube tip 5.8 cm above marielena The orogastric tube is in the stomach satisfactory position Interval right subclavian central line tip SVC no pneumothorax Impression: Bibasilar pneumonia, consider aspiration pneumonia
--- NOTE | 2024-02-10 21:26 | ESOP_ITS ---
Procedures Procedure Date / Time 02/10/242125 Procedure Narrative Procedure Narrative: PROCEDURE: Right subclavian vascular catheter INDICATION: Vasopressor Administration PROCEDURE GUEST EXPERIENCE REPRESENTATIVE : Dr Sam Terrell ATTENDING PHYSICIAN : Dr Estuardo Haas CONSENT : Informed consent was obtained from family, with discussion regarding the procedure, or treatment. I explained the following to the designee: a. Nature of the procedure or treatment and who will perform the procedure or treatment b. Necessity for procedure and the possible benefits. c. Risks and complications (most common and serious) d. Alternative treatments and the risks, benefits and side effects of each (including no treatment). e. Likelihood of the patient achieving his/her goals without this procedure and surgery treatment f. Problems that might occur during the recuperation g. Conflicts of interest, if any PROCEDURE SUMMARY: The [facility] Central Line Insertion Practices form was completed by an independent observer starting with the first handwash prior to starting sterile technique. A time out was performed. My hands were washed immediately prior to the procedure. I wore a surgical cap, mask with protective eyewear, sterile gown and sterile gloves throughout the procedure. The patient was placed in Trendelenburg position. The right chest region was prepped using chlorhexidine scrub and draped in sterile fashion using a full drape and sterile probe cover and sterile gel employed. Anesthesia was achieved with 1% lidocaine. The introducer needle was inserted approximately two centimeters lateral to and 1 cm inferior to the normal curvature of the patient's clavicle. Venous blood was withdrawn. The syringe was removed and a guidewire was advanced into the introducer needle. A small incision was made at the skin surface with a scalpel and the introducer needle was exchanged for a dilator over the guidewire. After appropriate dilation was obtained, the dilator was exchanged over the wire for a 7Fr central venous catheter. The wire was removed and the catheter was sutured in place at 8 cm. A sterile sorbaview shield was placed over the catheter at the insertion site. The patient tolerated the procedure without any hemodynamic compromise. At time of procedure completion, all ports aspirated and flushed properly. Post-procedure chest x-ray was done and showed appropriate placement with no signs of pneumothorax. Estimated blood loss is 3ml. Under the supervision of my attending Dr Estuardo Haas -Sam Terrell MD (PGY1)
[2024-02-10] MEDS: Magnesium Sulfate 2 GM Ivpb 2 GM/50 ML BAG IV (21:28)
[2024-02-10 22:21] LABS: Base Excess 8 (-3-3); HCO3 41 mEq/L (20-26); Inspired Oxygen, FIO2 75 %; O2 Saturation 93 % (91-98); PCO2 106 mmHg (32.0-48.0); PO2 73 mmHg (83-108)
[2024-02-10 22:24] LABS: Allen Test Performed/OK; Puncture Site Left Radial
[2024-02-11] VITALS (118 sets, daily range): BP systolic 81–168; BP diastolic 31–69; PULSE 44–70; RESP 11–29; TEMP 36–36.4; O2SAT 86–99; BMI 16.0
[2024-02-11 02:16] LABS: Basophils # (Auto) 0.1 Thou/mm3 (0.0-0.2); Basophils % (Auto) 0 % (0-2.5); Eosinophils % (Auto) 0 % (0-10); Hematocrit 43.3 % (36.0-46.0); Hemoglobin 13.3 g/dL (12.0-16.0); Immature Granulocytes % (Auto) 5 % (0-0); Immature Granulocytes Auto 1.08 Thou/mm3 (0.00-0.00); Lymphocytes # (Auto) 0.8 Thou/mm3 (1.0-4.8); Lymphocytes % (Auto) 3 % (10-50); Mean Corpuscular HGB Conc 30.7 g/dl (31.0-37.0); Mean Corpuscular Hemoglobin 31.9 pg (25.0-35.0); Mean Corpuscular Volume 104 fL (80-100); Monocytes # (Auto) 1.5 Thou/mm3 (0.0-0.8); Monocytes % (Auto) 6 % (0-12); Neutrophils # (Auto) 20.7 Thou/mm3 (1.8-7.7); Neutrophils % (Auto) 86 % (37-80); Nucleated Red Blood Cell # 0.02 Thou/mm3 (0.00-0.00); Nucleated Red Blood Cell % 0 /100 WBC (0); Platelet Count 369 Thou/mm3 (140-440); RDW Standard Deviation 53.1 fL (36.4-46.3); Red Blood Count 4.17 Miln/mm3 (4.00-5.20); White Blood Count 24.1 Thou/mm3 (3.6-11.0)
[2024-02-11 02:33] LABS: Alanine Aminotransferase 40 U/L (10-49); Albumin, Serum 3.8 gm/dL (3.4-4.8); Albumin/Globulin Ratio 1.7 (1.2-2.2); Alkaline Phosphatase 76 U/L (46-116); Anion Gap 4 (7-16); Aspartate Amino Transferase 54 U/L (0-34); BUN/Creatinine Ratio 33 Ratio (12-20); Bilirubin,Total 0.3 mg/dL (0.3-1.2); Blood Urea Nitrogen 33 mg/dL (9-23); Calcium 8.8 mg/dL (8.3-10.6); Chloride 97 mMol/L (98-107); Globulin 2.2 gm/dL (2.3-3.5); Glucose 295 mg/dL (74-106); Magnesium 3.3 mg/dL (1.6-2.6); Osmolality,Calculated 299 (275-295); Phosphorous 3.9 mg/dL (2.4-5.1); Potassium 4.8 mMol/L (3.4-5.1); Sodium 141 mMol/L (136-145); eGFR 60 See Note
[2024-02-11] MEDS: IPRATROPIUM RT 0.5 MG/ 2.5 ML NEBU INH ×6 (02:57→22:03)
[2024-02-11] MEDS: LEVALBUTEROL RT 1.25 MG/0.5 ML NEBU INH ×3 (02:58→10:53)
[2024-02-11] MEDS: VASOPRESSIN IN NS IVPB 20 UNIT/100 ML BAG 9 UNIT IV ×2 (04:27→16:28)
[2024-02-11 05:33] LABS: Base Excess 9 (-3-3); HCO3 41 mEq/L (20-26); Inspired Oxygen, FIO2 65 %; O2 Saturation 98 % (91-98); PCO2 110 mmHg (32.0-48.0); PO2 110 mmHg (83-108)
[2024-02-11] MEDS: HEPARIN SOD INJ 5000 UNIT/ML VIAL SC ×3 (05:34→21:28)
[2024-02-11 05:35] LABS: Allen Test Performed/OK; Puncture Site Left Radial
[2024-02-11 05:36] LABS: pH, Arterial 7.18 (7.35-7.45)
[2024-02-11 07:20] LABS: Base Excess 9 (-3-3); HCO3 41 mEq/L (20-26); Inspired Oxygen, FIO2 55 %; O2 Saturation 89 % (91-98); PCO2 112 mmHg (32.0-48.0); PO2 63 mmHg (83-108)
[2024-02-11 07:23] LABS: Allen Test Performed/OK; Puncture Site Right Radial; pH, Arterial 7.18 (7.35-7.45)
[2024-02-11] MEDS: NICOTINE PATCH 21 MG/24 HR PATCH.TD24 TOP (09:04)
[2024-02-11] MEDS: PANTOPRAZOLE INJ 40 MG VIAL IV (09:04)
[2024-02-11] MEDS: cefTRIAXone/D5w 1gm IV premix 50 ML IV (09:04)
[2024-02-11] MEDS: fentaNYL 2,500 MCG/250 ML BAG 2,500 MCG/250 ML BAG 10 MCG IV (09:13)
[2024-02-11] MEDS: Norepinephrine/NS 16mg/250ml 16 MG/250 ML BAG 14.351 MG IV (09:31)
--- NOTE | 2024-02-11 10:55 | PC.SS ---
Initial assessment: this is 73 year old female admitted to the ICU. The patient is currently intubated and patient's family at bed side to assist with providing information. Patient lives at home with spouse, Cristino Ramirez. Confirmed demographic information. Prior to patient's hospitalization, patient was described as independent with ADL's. Patient utilizes home nebulizer and inhalers. Patient is followed by Dr. Cervantes for primary care. Patient utilizes [facility] in [place] for pharmacy needs. The patient's alternate medical decision maker is her daughter, Neela Ramirez. At this time the discharge plan remains pending. D/c plan: Pending Next of kin: daughter, Neela Ramirez,
--- NOTE | 2024-02-11 11:40 | PC.DIETICIAN ---
Nutrition prescription If vasopressor needs improve, consider: Trophic feeds of Glucerna 1.2 at 15 ml/hr via OG tube by pump. Once more stable: Advance 10 ml every 8 hrs to goal rate of 45 ml/hr x 24 hrs. If no IV fluids, water flushes of 25 ml/hr (or per MD).
[2024-02-11] MEDS: RINGERS LACTATED 1000 ML 1,000 ML 60 ML IV (12:25)
[2024-02-11 13:54] LABS: Cocci Serology, IgG Negative (Negative)
[2024-02-11] MEDS: ALBUTEROL RT 2.5 MG/0.5 ML NEBU INH ×3 (14:32→22:03)
[2024-02-11] MEDS: Magnesium Sulfate 2 GM Ivpb 2 GM/50 ML BAG IV (15:17)
[2024-02-11] MEDS: AZITHROMYCIN INJ 500 MG in SODIUM CHLORIDE 0.9% 250 ML 250 ML 250 MG IV (15:18)
[2024-02-11] MEDS: SODIUM CHLORIDE 0.9% 500 ML 500 ML 999 ML IV (15:18)
--- NOTE | 2024-02-11 16:15 | ESCONSULT_ITS ---
<Statement entered by Adrian Brand MD - 02/13/24 13:09> The patient is reexamined by me personally appears to be clinically stable has A-fib RVR agree with the treatment plan recommendation as documented by PGY 2 Dr. Andrew Gomez. I will continue to monitor the patient closely. All essential components of the note are reviewed by me personally HPI Data of Consult Requesting Physician: Luciano Kong MD Admitting Provider: Luciano Kong MD Attending Provider: Luciano Kong MD Primary Care Provider: Maria Ines Odom PA-C Consult Narrative History of present illness: Ms. Ramirez is a 73-year-old female with past medical history significant for asthma who presented to [facility] with a chief complaint of shortness of breath. Patient eventually had a rapid response during admission and was being supplemented by BiPAP but eventually required upgrade to ICU for intubation and mechanical ventilation. Cardiology was consulted for episode of A-fib with RVR during rapid response. cc:: cc: Luciano Kong MD Exam Vital Signs Temp Pulse Resp BP Pulse Ox O2 Del Method O2 Flow Rate 96.9 F 70 23 H 139/50 H 94 L Mechanical Ventilation 6 02/11/24 12:01 02/11/24 16:06 02/11/24 14:32 02/11/24 16:06 02/11/24 16:06 02/11/24 12:01 02/10/24 16:00 FiO2 40 02/11/24 16:06 Narrative Exam GENERAL: Frail thin elderly female, sedated on mechanical ventilation. HEART: Regular rate and rhythm, no murmur, rubs, or gallops on auscultation LUNGS: Wheezing on auscultation both lobes. Currently intubated on mechanical ventilation. SKIN: No Rash or ecchymoses. Dry skin. EXTREMITIES: No edema in lower extremities noted. Results Labs 02/11/24 02:00 02/11/24 02:00 Labs: Short CBC 02/11/24 Range/Units 02:00 WBC 24.1 H (3.6-11.0) Thou/mm3 Hgb 13.3 (12.0-16.0) g/dL Hct 43.3 (36.0-46.0) % Plt Count 369 (140-440) Thou/mm3 BMP 02/11/24 02:00 Sodium 141 Potassium 4.8 Chloride 97 L Carbon Dioxide 40.0 H BUN 33 H Creatinine 1.0 Glucose 295 H D Calcium 8.8 Liver Function 02/11/24 Range/Units 02:00 Total Bilirubin 0.3 (0.3-1.2) mg/dL AST 54 H (0-34) U/L ALT 40 (10-49) U/L Alkaline Phosphatase 76 (46-116) U/L Albumin 3.8 D (3.4-4.8) gm/dL Urine 02/10/24 Range/Units 14:50 Urine Color Yellow (Lt Yel-Yel) Urine Clarity Turbid A (Clear/Hazy) Urine pH 5.5 (5.0-7.0) Ur Specific [place] 1.023 (1.001-1.035) Urine Protein 1+ A (Neg - Trace) Urine Glucose (UA) Negative (Negative) ABG Interpretation ABG results: 02/09/24 02/10/24 02/10/24 23:20 02:18 11:43 ABG pH ABG pCO2 ABG pO2 ABG HCO3 ABG O2 Saturation ABG Base Excess VBG pH 7.22 L 7.46 7.26 L VBG pCO2 95 H 46 D 95 H D VBG pO2 98 H 75 H D 66 H VBG Base Excess 7 H 8 H 11 H 02/10/24 02/10/24 02/11/24 16:30 22:02 05:22 ABG pH 7.25 L 7.20 L 7.18 L* ABG pCO2 95 H* 106 H* D 110 H* ABG pO2 71 L 73 L 110 H D ABG HCO3 41 H 41 H 41 H ABG O2 Saturation 94 93 98 ABG Base Excess 10 H 8 H 9 H VBG pH VBG pCO2 VBG pO2 VBG Base Excess 02/11/24 07:08 ABG pH 7.18 L* ABG pCO2 112 H* ABG pO2 63 L D ABG HCO3 41 H ABG O2 Saturation 89 L ABG Base Excess 9 H VBG pH VBG pCO2 VBG pO2 VBG Base Excess Quality Measures Quality Measures none Advance care planning discussed with:: patient Medications Home Medications and Allergies Home Medications ?Medication ?Instructions ?Recorded ?Confirmed ?Type lisinopril 20 mg tablet 20 mg PO DAILY 02/08/24 02/08/24 History Allergies Allergy/AdvReac Type Severity Reaction Status Date / Time strawberry Allergy Unknown Verified 02/08/24 10:23 Visit Medications Acetaminophen (Acetaminophen 325 Mg Tablet) 650 mg PO Q6H PRN PRN Reason: Fever >100.3 Stop: 03/09/24 17:05 Last Admin: 02/10/24 10:55 Dose: 650 mg Albuterol (Albuterol Rt 2.5 Mg/0.5 Ml Nebu) 2.5 mg INH Q4HRRT [facility] Stop: 03/12/24 14:59 Last Admin: 02/11/24 14:32 Dose: 2.5 mg Dextrose (Dextrose 50%-Water Inj 50 Ml Syringe) 25 ml IV Q15MIN PRN PRN Reason: BG 50-70 responsive npo pt Stop: 03/11/24 15:30 Dextrose (Dextrose 50%-Water Inj 50 Ml Syringe) 50 ml IV Q15MIN PRN PRN Reason: BG <50 OR BG <70 & pt unresponsive Stop: 03/11/24 15:30 Glucagon (Glucagon Inj 1 Mg Vial) 1 mg IM Q15MIN PRN PRN Reason: BG <70, and no IV access Heparin Sodium (Porcine) (Heparin Sod Inj 5000 Unit/Ml Vial) 5,000 unit SC Q8HR [facility] Stop: 02/22/24 17:29 Last Admin: 02/11/24 15:18 Dose: 5,000 unit Azithromycin 500 mg/ Sodium (Chloride) 250 mls @ 250 mls/hr IV QDAY@1400 [facility] Stop: 02/12/24 13:59 Last Admin: 02/11/24 15:18 Dose: 250 mls/hr Ceftriaxone Sodium/Dextrose (Rocephin/D5w 1gm Iv Premix) 50 mls @ 100 mls/hr IV QDAY [facility] Stop: 02/15/24 17:20 Last Admin: 02/11/24 09:04 Dose: 100 mls/hr Amiodarone HCl/Dextrose (Nexterone Ivpb) 360 mg in 200 mls @ 16.667 mls/hr IV .Q12H [facility] Stop: 02/11/24 17:38 Last Admin: 02/11/24 06:52 Dose: Not Given Norepinephrine Bitartrate (Levophed In Ns 16mg/250ml) 16 mg in 250 mls @ 1.75 mls/hr IV .Q24H PRN; Protocol PRN Reason: PER PROTOCOL Stop: 03/11/24 17:16 Last Titration: 02/11/24 15:00 Dose: 0.65 mcg/kg/min, 22.752 mls/hr Vasopressin/Sodium Chloride (Vasostrict/Ns Ivpb) 20 unit in 100 mls @ 9 mls/hr IV .Q11H7M PRN; Protocol PRN Reason: PER PROTOCOL Stop: 03/11/24 19:24 Last Admin: 02/11/24 04:27 Dose: 0.03 unit/min, 9 mls/hr Cisatracurium Besylate 200 mg/ (Sodium Chloride) 520 mls @ 5.824 mls/hr IV .Q24H PRN; Protocol PRN Reason: Per Protocol Stop: 03/11/24 19:22 Last Titration: 02/11/24 03:00 Dose: 0 mcg/kg/min, 0 mls/hr Propofol (Diprivan Ivpb) 1,000 mg in 100 mls @ 1.12 mls/hr IV .Q24H PRN; Protocol PRN Reason: PER PROTOCOL Stop: 03/11/24 18:52 Fentanyl Citrate (Sublimaze Inj 2,500 Mcg/250 Ml Bag) 2,500 mcg in 250 mls @ 2.5 mls/hr IV .Q24H PRN; Protocol PRN Reason: PER PROTOCOL Stop: 02/15/24 16:49 Last Titration: 02/11/24 15:00 Dose: 150 mcg/hr, 15 mls/hr Lactated Ringer's (Lactated Ringers) 1,000 mls @ 60 mls/hr IV .[id number] [facility] Stop: 02/12/24 04:43 Last Admin: 02/11/24 12:25 Dose: 60 mls/hr Magnesium Sulfate (Magnesium Sulfate Ivpb) 2 gm in 50 mls @ 25 mls/hr IV X1 ONE Stop: 02/11/24 17:03 Last Admin: 02/11/24 15:17 Dose: 25 mls/hr Ipratropium [place] (Ipratropium Rt 0.5 Mg/ 2.5 Ml Nebu) 0.5 mg INH Q4HRRT [facility] Stop: 03/11/24 22:59 Last Admin: 02/11/24 14:32 Dose: 0.5 mg Ipratropium [place] (Ipratropium Rt 0.5 Mg/ 2.5 Ml Nebu) 0.5 mg INH Q2HR PRN PRN Reason: SHORTNESS OF BREATH Stop: 03/11/24 19:45 Methylprednisolone Sodium Succinate (Methylprednisolone Sod Succ 40 Mg Vial) 40 mg IVP DAILY [facility] Stop: 02/18/24 12:14 Last Admin: 02/11/24 12:24 Dose: 40 mg Nicotine (Nicotine Patch 21 Mg/24 Hr Patch.Td24) 21 mg TOP QDAY [facility] Stop: 03/10/24 13:44 Last Admin: 02/11/24 09:04 Dose: 21 mg Ondansetron HCl (Ondansetron Inj 2 Mg/Ml Inj 2 Ml) 4 mg IV Q6H PRN; Protocol PRN Reason: NAUSEA OR VOMITING Stop: 03/09/24 17:05 Pantoprazole Sodium (Pantoprazole Inj 40 Mg Vial) 40 mg IV QDAY [facility] Stop: 03/09/24 18:14 Last Admin: 02/11/24 09:04 Dose: 40 mg Sodium Chloride (Sodium Chloride Rt [place] 0.9% 3 Ml Nebu) 3 ml INH PRN PRN PRN Reason: SOLN Stop: 03/10/24 11:38 Discontinued Medications Acetaminophen (Acetaminophen 325 Mg Tablet) 650 mg PO Q6H PRN PRN Reason: Fever >101.5 Stop: 03/09/24 17:05 Albuterol (Albuterol Rt 2.5 Mg/0.5 Ml Nebu) 10 mg INH X1 ONE Stop: 02/08/24 10:59 Last Admin: 02/08/24 11:02 Dose: 10 mg Albuterol (Albuterol Rt 2.5 Mg/0.5 Ml Nebu) 2.5 mg INH Q2HR PRN PRN Reason: SHORTNESS OF BREATH OR WHEEZE Stop: 03/10/24 03:59 Last Admin: 02/09/24 03:00 Dose: 2.5 mg Albuterol (Albuterol Rt 2.5 Mg/0.5 Ml Nebu) 2.5 mg INH Q4H [facility] Stop: 03/12/24 11:59 Albuterol (Albuterol Rt 25 Mg/5 Ml Nebu) 10 mg INH X1 ONE Stop: 02/11/24 15:04 Albuterol/Ipratropium (Albuterol/Ipratropium (Duoneb) Rt [place]ay[place] 3 Ml Nebu) 3 ml INH X1 ONE Stop: 02/08/24 10:38 Last Admin: 02/08/24 11:03 Dose: 3 ml Albuterol/Ipratropium (Albuterol/Ipratropium (Duoneb) Rt [place] 3 Ml Nebu) 3 ml INH X1 ONE Stop: 02/08/24 14:09 Last Admin: 02/08/24 14:17 Dose: 3 ml Albuterol/Ipratropium (Albuterol/Ipratropium (Duoneb) Rt [place] 3 Ml Nebu) 3 ml INH Q6H PRN PRN Reason: COPD Stop: 03/09/24 17:14 Albuterol/Ipratropium (Albuterol/Ipratropium (Duoneb) Rt [place] 3 Ml Nebu) 3 ml INH Q6HRRT [facility] Stop: 03/09/24 17:29 Last Admin: 02/09/24 05:58 Dose: 3 ml Azithromycin (Azithromycin 250 Mg Tablet) 500 mg PO X1 ONE Stop: 02/08/24 11:58 Last Admin: 02/08/24 12:09 Dose: 500 mg Calcium Gluconate (Calcium Gluconate 10% Inj 1 Gm/10 Ml Vial) 1 gm IV X1 ONE Stop: 02/10/24 11:28 Last Admin: 02/10/24 12:06 Dose: 1 gm Dextrose (Dextrose 50%-Water Inj 50 Ml Syringe) 100 ml IV X1 ONE Stop: 02/10/24 15:32 Last Admin: 02/10/24 17:57 Dose: 100 ml Etomidate (Etomidate Inj 2 Mg/Ml Vial 10 Ml) 10 mg IVP X1 ONE Stop: 02/10/24 15:56 Last Admin: 02/10/24 17:41 Dose: Not Given Etomidate (Etomidate Inj 2 Mg/Ml Vial 10 Ml) 20 mg IVP X1 ONE Stop: 02/10/24 17:10 Last Admin: 02/10/24 17:10 Dose: 20 mg Fentanyl Citrate (Fentanyl Cit Inj 50 Mcg/Ml Amp 2ml) 50 mcg IVP X1 ONE Stop: 02/10/24 19:45 Last Admin: 02/10/24 19:57 Dose: Not Given Sodium Chloride (Ns) 1,000 mls @ 100 mls/hr IV .Q10H [facility] Stop: 02/09/24 17:14 Last Admin: 02/09/24 05:31 Dose: 100 mls/hr Amiodarone HCl/Dextrose (Nexterone Ivpb) 150 mg in 100 mls @ 600 mls/hr IV .Q10M ONE Stop: 02/10/24 11:38 Last Admin: 02/10/24 11:49 Dose: 600 mls/hr Amiodarone HCl/Dextrose (Nexterone Ivpb) 360 mg in 200 mls @ 33.333 mls/hr IV .Q6H [facility] Stop: 02/10/24 17:38 Last Admin: 02/10/24 12:04 Dose: 33.333 mls/hr Fentanyl Citrate (Sublimaze Inj 2,500 Mcg/250 Ml Bag) 2,500 mcg in 250 mls @ 2.5 mls/hr IV .Q24H PRN; Protocol PRN Reason: PER PROTOCOL Stop: 02/15/24 16:49 Last Titration: 02/11/24 09:00 Dose: 100 mcg/hr, 10 mls/hr Propofol (Diprivan Ivpb) 1,000 mg in 100 mls @ 1.12 mls/hr IV .Q24H PRN; Protocol PRN Reason: PER PROTOCOL Stop: 03/11/24 18:52 Cisatracurium Besylate 200 mg/ (Sodium Chloride) 520 mls @ 5.824 mls/hr IV .Q24H PRN; Protocol PRN Reason: Per Protocol Stop: 03/11/24 19:22 Magnesium Sulfate (Magnesium Sulfate Ivpb) 2 gm in 50 mls @ 25 mls/hr IV X1 ONE Stop: 02/10/24 21:23 Last Admin: 02/10/24 21:28 Dose: 25 mls/hr Fentanyl Citrate (Sublimaze Inj 2,500 Mcg/250 Ml Bag) 2,500 mcg in 250 mls @ 2.5 mls/hr IV .Q24H PRN; Protocol PRN Reason: PER PROTOCOL Stop: 02/15/24 16:49 Propofol (Diprivan Ivpb) 1,000 mg in 100 mls @ 1.12 mls/hr IV .Q24H PRN; Protocol PRN Reason: PER PROTOCOL Stop: 03/11/24 18:52 Last Titration: 02/11/24 15:00 Dose: 10 mcg/kg/min, 2.24 mls/hr Micafungin Sodium 100 mg/ (Sodium Chloride) 100 mls @ 100 mls/hr IV QDAY [facility] Stop: 02/25/24 21:29 Last Admin: 02/10/24 22:43 Dose: Not Given Sodium Chloride (Ns) 500 mls @ 999 mls/hr IV .Q31M ONE Stop: 02/11/24 15:34 Last Admin: 02/11/24 15:18 Dose: 999 mls/hr Insulin Human Regular (Insulin Hum Regular 1 Unit/0.01 Ml (Per Unit)) 5 unit IV X1 ONE Stop: 02/10/24 08:49 Last Admin: 02/10/24 10:16 Dose: Not Given Insulin Human Regular (Insulin Hum Regular 1 Unit/0.01 Ml (Per Unit)) 5 unit IV X1 ONE Stop: 02/10/24 15:32 Last Admin: 02/10/24 17:58 Dose: 5 unit Ipratropium [place] (Ipratropium Rt 0.5 Mg/ 2.5 Ml Nebu) 0.5 mg INH X1 ONE Stop: 02/08/24 10:59 Last Admin: 02/08/24 11:02 Dose: 0.5 mg Ipratropium [place] (Ipratropium Rt 0.5 Mg/ 2.5 Ml Nebu) 0.5 mg INH Q6HRRT [facility] Stop: 03/10/24 12:59 Last Admin: 02/10/24 11:48 Dose: 0.5 mg Levalbuterol HCl (Levalbuterol Rt 1.25 Mg/0.5 Ml Nebu) 1.25 mg INH X1 ONE Stop: 02/08/24 15:11 Last Admin: 02/08/24 15:16 Dose: 1.25 mg Levalbuterol HCl (Levalbuterol Rt 1.25 Mg/0.5 Ml Nebu) 1.25 mg INH Q6HRRT [facility] Stop: 03/10/24 12:59 Last Admin: 02/10/24 11:48 Dose: 1.25 mg Levalbuterol HCl (Levalbuterol Rt 1.25 Mg/0.5 Ml Nebu) 1.25 mg INH Q4HRRT [facility] Stop: 03/11/24 22:59 Last Admin: 02/11/24 10:53 Dose: 1.25 mg Levalbuterol HCl (Levalbuterol Rt 0.31 Mg/3 Ml Nebu) 0.31 mg INH Q2HR PRN PRN Reason: SOB/Wheeze Stop: 03/11/24 19:59 Lorazepam (Lorazepam 2 Mg/Ml Vial) 1 mg IVP X1 ONE Stop: 02/09/24 07:56 Last Admin: 02/09/24 08:28 Dose: 1 mg Methylprednisolone Sodium Succinate (Methylprednisolone Sod Succ 62.5 Mg/Ml 2ml Vial) 125 mg IVP X1 ONE Stop: 02/08/24 10:59 Last Admin: 02/08/24 11:21 Dose: 125 mg Methylprednisolone Sodium Succinate (Methylprednisolone Sod Succ 62.5 Mg/Ml 2ml Vial) 125 mg IVP X1 ONE Stop: 02/08/24 17:16 Last Admin: 02/08/24 18:37 Dose: 125 mg Methylprednisolone Sodium Succinate (Methylprednisolone Sod Succ 40 Mg Vial) 60 mg IVP QDAY [facility] Stop: 02/11/24 08:59 Last Admin: 02/10/24 09:55 Dose: 60 mg Metoprolol Tartrate (Metoprolol Tartrate Inj 1 Mg/Ml Amp 5 Ml) 5 mg IVP X1 ONE Stop: 02/10/24 11:20 Last Admin: 02/10/24 11:26 Dose: 5 mg Midazolam HCl (Midazolam Inj 1 Mg/Ml Vial 2 Ml) 3.7 mg 0.1 mg/kg (3.7 mg) IV X1 ONE Stop: 02/10/24 19:45 Last Admin: 02/10/24 19:57 Dose: Not Given Rocuronium [place] (Rocuronium Inj 10 Mg/Ml Vial 10 Ml) 37 mg 1 mg/kg (37 mg) IV X1 ONE Stop: 02/10/24 15:56 Last Admin: 02/10/24 17:10 Dose: 37 mg Rocuronium [place] (Rocuronium Inj 10 Mg/Ml Vial 10 Ml) 30 mg IVP X1 ONE Stop: 02/10/24 19:49 Last Admin: 02/10/24 19:55 Dose: 30 mg Sodium Chloride (Sodium Chloride Rt [place] 0.9% 3 Ml Nebu) 3 ml INH PRN PRN PRN Reason: SOLN Stop: 03/09/24 10:57 Last Admin: 02/09/24 03:00 Dose: 3 ml Sodium Chloride (Sodium Chloride Rt [place] 0.9% 3 Ml Nebu) 3 ml INH PRN PRN PRN Reason: SOLN Stop: 03/09/24 10:57 Sodium Chloride (Sodium Chloride Rt [place] 0.9% 3 Ml Nebu) 3 ml INH PRN PRN PRN Reason: SOLN Stop: 03/09/24 15:09 Sodium Chloride (Sodium Chloride Rt 10% 15 Ml Nebu) 5 ml INH X1 ONE Stop: 02/08/24 17:21 Assessment & Plan Plan Ms. Ramirez is a 73-year-old female with past medical history significant for asthma and hypertension who presented to [facility] with a chief complaint of shortness of breath. Patient eventually had a rapid response during admission and was being supplemented by BiPAP but eventually required upgrade to ICU for intubation and mechanical ventilation. Cardiology was consulted for episode of A-fib with RVR during rapid response. #A-fib with RVR Likely secondary to body stress during rapid response event Cardiac echo shows normal left ventricle with EF 55% EKG during rapid response shows A-fib with RVR Continue patient on amnio drip [id number] score 3, 4.6% stroke risk. Keep potassium above 4, keep magnesium above 2. #Hypertension #Acute hypoxic, hypercapnic respiratory failure secondary to #COPD exacerbation #Community-acquired pneumonia, failed outpatient therapy #History of asthma #Hyperkalemia #Leukocytosis #Polycythemia #Sepsis #Community-acquired pneumonia Continue management per primary team Case discussed with yard motor operator Dr. Sunday Gomez MD PGY3
[2024-02-11] MEDS: ALBUTEROL RT 2.5 MG/0.5 ML NEBU 10 MG INH (16:22)
[2024-02-11] MEDS: PROPOFOL 1,000 MG IVPB 1,000 MG/100 ML VIAL 3.36 MG IV (16:27)
[2024-02-11 16:57] LABS: Base Excess 5 (-3-3); HCO3 35 mEq/L (20-26); Inspired Oxygen, FIO2 40 %; O2 Saturation 99 % (91-98); PCO2 79 mmHg (32.0-48.0); PO2 116 mmHg (83-108); pH, Arterial 7.26 (7.35-7.45)
[2024-02-11 16:58] LABS: Allen Test Not Performed; Puncture Site Right Radial
--- NOTE | 2024-02-11 18:32 | ESPR_ITS ---
Documentation for date of: 02/11/24 Subjective Subjective Interval history: Ms. Ramirez is a 73-year-old female with past medical history significant for asthma who presented to [facility] with a chief complaint of shortness of breath. Patient reported using levalbuterol inhaler daily, also is a former smoker and smoked for 40 years approximately half a pack a day daily however patient quit smoking cigarettes 6 months ago. Patient presented to ED on 02/02 for shortness of breath and was discharged home with antibiotics, her symptoms initially improved. However post to discharge patient's shortness of breath progressively worsened without improvement with her albuterol inhaler, which prompted her to come to the ED again on 02/07. Patient ambulates without difficulty, or shortness of breath. Patient denies recent travel history or sick contacts. In ED patient was saturating at 95% on 15 L via Oxy mask, was tachycardic and hypertensive. Bedside COVID was negative, lab findings did show leukocytosis WBC 12.8, polycythemia hemoglobin 16.4, BNP 369. On imaging chest x-ray Chest x-ray- COPD with moderate hyperexpansion, rounded masslike area in the right infrahilar region at least 4 cm, left base pneumonia, Chest CT- COPD, Pulmonary artery hypertension, Wedge-shaped density radiating from the right hilar region and these 5.4 x 3.8cm most consistent with atelectasis, without definite endobronchial lesion In the ED patient received breathing treatment and Solu- Medrol. Patient was admitted to floors for sepsis secondary to community- acquired pneumonia and acute hypoxic respiratory failure secondary to COPD exacerbation and suspicion of PE. Patient's hospital course was complicated by increased oxygen requirements, patient was placed on BiPAP, significant respiratory distress noted with respiratory rate in 40s and 50s, patient noted to be in atrial fibrillation, was started on amiodarone drip, initially patient was DNR/DNI, primary team discussed case with patient's family and they wanted to proceed with intubation hence patient was upgraded to ICU for further management and intubation. 02/11/2024: Patient seen and examined at bedside, overnight ventilator settings were changed, pH 7.18, pCO2 112 this morning, Nimbex and amiodarone drip was discontinued yesterday as patient was bradycardic. Patient started on albuterol every 4 hours, methylprednisolone IV, will be given 1 hour-long albuterol treatment, 2 g of IV magnesium a follow-up and clinically patient is dry started on maintenance fluids. Repeat ABG shows significant improvement in patient's pH. Otherwise we will continue mechanical ventilation, will repeat ABG in the morning. Cardiology saw the patient at bedside, possible atrial fibrillation due to underlying COPD. Will continue to monitor patient. Exam Vital Signs Temp Pulse Resp BP Pulse Ox O2 Del Method O2 Flow Rate 97.5 F 67 22 H 134/57 H 87 L Mechanical Ventilation 6 02/11/24 16:00 02/11/24 18:19 02/11/24 18:15 02/11/24 18:15 02/11/24 18:15 02/11/24 16:00 02/10/24 16:00 FiO2 40 02/11/24 16:22 Narrative Exam Physical Exam GENERAL: Frail thin elderly female, sedated on mechanical ventilation. HEENT: Normocephalic, atraumatic, mucous membranes dry. HEART: Regular rate and rhythm, no murmur, rubs, or gallops on auscultation LUNGS: Wheezing on auscultation both lobes. Currently intubated on mechanical ventilation. ABDOMEN: Soft, nondistended, nontender, positive bowel sounds. ?No guarding or rebound tenderness. SKIN: No Rash or ecchymoses. Dry skin. EXTREMITIES: No edema in lower extremities noted. NEUROLOGICAL: Alert and oriented x3, no gross neurological deficit, and patient able to move all 4 extremities. Objective Labs 02/14/24 04:09 02/14/24 04:09 Labs: Laboratory Results - last 24 hr 02/08/24 02/10/24 02/11/24 17:36 22:02 02:00 WBC 24.1 H RBC 4.17 Hgb 13.3 Hct 43.3 MCV 104 H MCH 31.9 MCHC 30.7 L RDW Std Deviation 53.1 H Plt Count 369 Neut % (Auto) 86 H Lymph % (Auto) 3 L [place] % (Auto) 6 Eos % (Auto) 0 Baso % (Auto) 0 Neut # (Auto) 20.7 H Lymph # (Auto) 0.8 L [place] # (Auto) 1.5 H Eos # (Auto) 0.0 Baso # (Auto) 0.1 Immature Gran # (Auto) 1.08 H Absolute Nucleated RBC 0.02 H Immature Gran % 5 H Nucleated RBC % 0 Puncture Site Left Radial ABG pH 7.20 L ABG pCO2 106 H* D ABG pO2 73 L ABG HCO3 41 H ABG O2 Saturation 93 ABG Base Excess 8 H FiO2 75 Sodium 141 Potassium 4.8 Chloride 97 L Carbon Dioxide 40.0 H Anion Gap 4 L BUN 33 H Creatinine 1.0 Estim Creat Clear Calc 30.0 L eGFR 60 BUN/Creatinine Ratio 33 H Glucose 295 H D Calculated Osmolality 299 H Calcium 8.8 Corrected Calcium 9.0 Phosphorus 3.9 Magnesium 3.3 H Total Bilirubin 0.3 AST 54 H ALT 40 Alkaline Phosphatase 76 Total Protein 6.0 Albumin 3.8 D Globulin 2.2 L Albumin/Globulin Ratio 1.7 Coccidioides IgG Ab Negative 02/11/24 02/11/24 02/11/24 05:22 07:08 16:32 WBC RBC Hgb Hct MCV MCH MCHC RDW Std Deviation Plt Count Neut % (Auto) Lymph % (Auto) [place] % (Auto) Eos % (Auto) Baso % (Auto) Neut # (Auto) Lymph # (Auto) [place] # (Auto) Eos # (Auto) Baso # (Auto) Immature Gran # (Auto) Absolute Nucleated RBC Immature Gran % Nucleated RBC % Puncture Site Left Radial Right Radial Right Radial ABG pH 7.18 L* 7.18 L* 7.26 L ABG pCO2 110 H* 112 H* 79 H* D ABG pO2 110 H D 63 L D 116 H D ABG HCO3 41 H 41 H 35 H ABG O2 Saturation 98 89 L 99 H ABG Base Excess 9 H 9 H 5 H FiO2 65 55 40 Sodium Potassium Chloride Carbon Dioxide Anion Gap BUN Creatinine Estim Creat Clear Calc eGFR BUN/Creatinine Ratio Glucose Calculated Osmolality Calcium Corrected Calcium Phosphorus Magnesium Total Bilirubin AST ALT Alkaline Phosphatase Total Protein Albumin Globulin Albumin/Globulin Ratio Coccidioides IgG Ab ABG Interpretation ABG results: 02/09/24 02/10/24 02/10/24 23:20 02:18 11:43 ABG pH ABG pCO2 ABG pO2 ABG HCO3 ABG O2 Saturation ABG Base Excess VBG pH 7.22 L 7.46 7.26 L VBG pCO2 95 H 46 D 95 H D VBG pO2 98 H 75 H D 66 H VBG Base Excess 7 H 8 H 11 H 02/10/24 02/10/24 02/11/24 16:30 22:02 05:22 ABG pH 7.25 L 7.20 L 7.18 L* ABG pCO2 95 H* 106 H* D 110 H* ABG pO2 71 L 73 L 110 H D ABG HCO3 41 H 41 H 41 H ABG O2 Saturation 94 93 98 ABG Base Excess 10 H 8 H 9 H VBG pH VBG pCO2 VBG pO2 VBG Base Excess 02/11/24 02/11/24 07:08 16:32 ABG pH 7.18 L* 7.26 L ABG pCO2 112 H* 79 H* D ABG pO2 63 L D 116 H D ABG HCO3 41 H 35 H ABG O2 Saturation 89 L 99 H ABG Base Excess 9 H 5 H VBG pH VBG pCO2 VBG pO2 VBG Base Excess Quality Measures Quality Measures none Advance care planning discussed with:: patient Assessment & Plan Assessment Current Active Medications: Generic Name Dose Route Start Last Admin Trade Name Freq PRN Reason Stop Dose Admin Acetaminophen 650 mg 02/09/24 10:08 02/10/24 10:55 Acetaminophen 325 Mg Tablet PO 03/09/24 17:05 650 mg Q6H PRN Administration Fever >100.3 Albuterol 2.5 mg 02/11/24 15:00 02/11/24 18:19 Albuterol Rt 2.5 Mg/0.5 Ml Nebu INH 03/12/24 14:59 2.5 mg Q4HRRT RAPHAEL Administration Dextrose 25 ml 02/10/24 15:31 Dextrose 50%-Water Inj 50 Ml Syringe IV 03/11/24 15:30 Q15MIN PRN BG 50-70 responsive npo pt Dextrose 50 ml 02/10/24 15:31 Dextrose 50%-Water Inj 50 Ml Syringe IV 03/11/24 15:30 Q15MIN PRN BG <50 OR BG <70 & pt unresponsive Glucagon 1 mg 02/10/24 15:31 Glucagon Inj 1 Mg Vial IM Q15MIN PRN BG <70, and no IV access Heparin Sodium (Porcine) 5,000 unit 02/08/24 17:30 02/11/24 15:18 Heparin Sod Inj 5000 Unit/Ml Vial SC 02/22/24 17:29 5,000 unit Q8HR RAPHAEL Administration Azithromycin 500 mg/ Sodium 250 mls @ 250 mls/hr 02/09/24 14:00 02/11/24 17:53 Chloride IV 02/12/24 13:59 Infused QDAY@1400 RAPHAEL Infusion Ceftriaxone Sodium/Dextrose 50 mls @ 100 mls/hr 02/08/24 17:21 02/11/24 17:53 Rocephin/D5w 1gm Iv Premix IV 02/15/24 17:20 Infused QDAY RAPHAEL Infusion Norepinephrine Bitartrate 16 mg in 250 mls @ 1.75 mls/hr 02/10/24 17:17 02/11/24 18:15 Levophed In Ns 16mg/250ml IV 03/11/24 17:16 0.61 mcg/kg/min .Q24H PRN 21.352 mls/hr PER PROTOCOL Titration Protocol 0.05 MCG/KG/MIN Vasopressin/Sodium Chloride 20 unit in 100 mls @ 9 mls/hr 02/10/24 19:25 02/11/24 16:28 Vasostrict/Ns Ivpb IV 03/11/24 19:24 0.03 unit/min .Q11H7M PRN 9 mls/hr PER PROTOCOL Administration Protocol 0.03 UNIT/MIN Cisatracurium Besylate 200 mg/ 520 mls @ 5.824 mls/hr 02/10/24 19:25 02/11/24 03:00 Sodium Chloride IV 03/11/24 19:22 0 mcg/kg/min .Q24H PRN 0 mls/hr Per Protocol Titration Protocol 1 MCG/KG/MIN Propofol 1,000 mg in 100 mls @ 1.12 mls/hr 02/10/24 23:33 02/11/24 18:15 Diprivan Ivpb IV 03/11/24 18:52 25 mcg/kg/min .Q24H PRN 5.6 mls/hr PER PROTOCOL Titration Protocol 5 MCG/KG/MIN Fentanyl Citrate 2,500 mcg in 250 mls @ 2.5 mls/hr 02/10/24 23:34 02/11/24 18:00 Sublimaze Inj 2,500 Mcg/250 Ml Bag IV 02/15/24 16:49 200 mcg/hr .Q24H PRN 20 mls/hr PER PROTOCOL Titration Protocol 25 MCG/HR Lactated Ringer's 1,000 mls @ 60 mls/hr 02/11/24 12:04 02/11/24 12:25 Lactated Ringers IV 02/12/24 04:43 60 mls/hr .[id number] RAPHAEL Administration Ipratropium [place] 0.5 mg 02/10/24 23:00 02/11/24 18:20 Ipratropium Rt 0.5 Mg/ 2.5 Ml Nebu INH 03/11/24 22:59 0.5 mg Q4HRRT RAPHAEL Administration Ipratropium [place] 0.5 mg 02/10/24 19:46 Ipratropium Rt 0.5 Mg/ 2.5 Ml Nebu INH 03/11/24 19:45 Q2HR PRN SHORTNESS OF BREATH Methylprednisolone Sodium Succinate 40 mg 02/11/24 12:15 02/11/24 12:24 Methylprednisolone Sod Succ 40 Mg Vial IVP 02/18/24 12:14 40 mg DAILY RAPHAEL Administration Nicotine 21 mg 02/09/24 13:45 02/11/24 09:04 Nicotine Patch 21 Mg/24 Hr Patch.Td24 TOP 03/10/24 13:44 21 mg QDAY RAPHAEL Administration Ondansetron HCl 4 mg 02/08/24 17:06 Ondansetron Inj 2 Mg/Ml Inj 2 Ml IV 03/09/24 17:05 Q6H PRN NAUSEA OR VOMITING Protocol Pantoprazole Sodium 40 mg 02/08/24 18:15 02/11/24 09:04 Pantoprazole Inj 40 Mg Vial IV 03/09/24 18:14 40 mg QDAY RAPHAEL Administration Sodium Chloride 3 ml 02/09/24 11:39 Sodium Chloride Rt [place] 0.9% 3 Ml Nebu INH 03/10/24 11:38 PRN PRN SOLN Plan Assessment and Plan: Summary: Ms. Ramirez is a 73-year-old female with history of asthma who presented to [facility] with chief complaint of shortness of breath, patient was started on IV antibiotics, IV steroids patient's respiratory status continued to worsen and patient was upgraded to ICU for further management of acute hypercapnic/hypoxic respiratory failure secondary to COPD exacerbation and community-acquired pneumonia. Neurological Alert, awake, agitated on BiPAP in significant respiratory distress. Patient will be intubated and sedated. Cardiology #Atrial fibrillation with rapid ventricular response, resolved Patient had a rapid response today, found to be in A-fib RVR with heart rate more than 180. Has no history of atrial fibrillation. [id number] Score: 3 Plan: -Telemonitoring -Cardiology consulted, appreciate recommendations #Hypertension Patient is on lisinopril at home Will hold patient blood pressure soft Pulmonary #Acute hypoxic, hypercapnic respiratory failure secondary to #COPD exacerbation #Community-acquired pneumonia, failed outpatient therapy #History of asthma Patient reported history of asthma, reports using levalbuterol inhaler at home. Patient was recently discharged from ED on PO antibiotics, had progressive worsening Patient is chronic smoker smoked full pack of cigarettes for 40 years, presented with shortness of breath Chest x-ray- COPD with moderate hyperexpansion, rounded masslike area in the right infrahilar region at least 4 cm, left base pneumonia Chest CT- COPD, Pulmonary artery hypertension, Wedge-shaped density radiating from the right hilar region and these 5.4 x 3.8cm most consistent with atelectasis, without definite endobronchial lesion VBG 02/10/24 shows pH 7.26, pCO2 95, pO2 66 Plan: -Patient will be intubated, started on mechanical ventilation -1 hour-long albuterol treatment today -2 g IV magnesium -Continue albuterol every 4 hours, ipratropium every 4 hour -Continue IV Solu-Medrol -albuterol every 2 hours as needed, ipratropium every 2 hours as needed -Continue ceftriaxone and azithromycin -Tylenol as needed for fever Gastrointestinal GI prophylaxis: Pantoprazole 40 mg IV daily Renal/Genitourinary # Respiratory acidosis with compensated metabolic alkalosis -Will treat underlying COPD #Hyperkalemia, resolved. #Dehydration -Started on maintenance fluids Endocrine Stable Hematology #Leukocytosis Treat underlying condition #Polycythemia H/O of smoking Monitor CBC in a.m. Infectious Disease #Sepsis #Community-acquired pneumonia Patient presented with tachycardia tachypnea and leukocytosis Was recently discharged from ED on antibiotics for suspicion of sepsis Cocci IgM negative, IgG pending, bedside COVID-negative Sputum culture negative, blood culture negative for 48 hours Plan: Continue ceftriaxone and azithromycin Tylenol as needed for fever Ordered RSV, Legionella, MRSA nasal screen, influenza DVT prophylaxis: Heparin SC every 8 hours GI prophylaxis: Protonix 40 mg IV daily Diet: N.p.o. Lines: Peripheral IV Code status: Full code Disposition: Will be admitted to ICU, intubated sedated and started on mechanical ventilation Case discussed with Attending Dr. Andrew and Dr. Carbajal PGY2. Sheryl Kirkland PGY1 Attending Provider Attestation/Addendum Patient seen and examined with above resident, Sheryl Kirkland MD. I agree with the findings, assessment, and plan of care as documented except for any differences below. Patient transferred into ICU yesterday after failing noninvasive positive pressure ventilation. Patient required multiple adjustments overnight for continued hypercapnia as well as balance with significant obstructive airway disease. Aggressive treatment with albuterol as well as IV Solu-Medrol for any reversible disease along with using IV magnesium to improve. I did adjust mechanical ventilation settings with increased tidal volume and prolonged expiratory phase which showed an I time and high flow with tolerance of higher pressures to ensure the patient has adequate removal of volume and normal air trapping or hyperinflation as this seems to be also causing significant hypotension warranting use of vasopressor support. Patient also with component of renal dysfunction for which we have started fluids this may also help with pressor requirements. 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 Patient's daughters did appropriately this morning to assess the patient's viability of recovery from the severity of her respiratory illness. I did explain to them that she has significant chronic obstructive lung disease that was likely undiagnosed that was not being treated. This is her initial and most severe course case of exacerbation. We however do not have evidence that her disease process is not have a component of irreversibility and I suggested a time trial treatment plan as they have family is leaning towards focusing on comfort if there is no meaningful chance of recovery to her quality of life that she enjoyed before. Continue on current plan of therapy for COPD and empiric therapy for component of infection in the she likely had more mucous plugging based on the chest film and true pneumonia. Total critical care time: I personally spent 40 minutes for review of physiologic parameters, directing plan of care throughout the day including frequent adjustments of mechanical ventilation, coordination of care with other subspecialists, and counseling the patient's family extensively at bedside. This is exclusive of time spent teaching housestaff or performing any separate billable procedures.
[2024-02-11] MEDS: Norepinephrine/NS 16mg/250ml 16 MG/250 ML BAG 21.352 MG IV (22:30)
[2024-02-12] VITALS (121 sets, daily range): BP systolic 66–199; BP diastolic 42–100; PULSE 38–76; RESP 0–28; TEMP 36.1–37.2; O2SAT 73–100; BMI 15.9
[2024-02-12] MEDS: SODIUM CHLORIDE RT SOL 0.9% 3 ML NEBU INH ×4 (00:34→06:11)
[2024-02-12] MEDS: ALBUTEROL RT 2.5 MG/0.5 ML NEBU INH ×7 (00:34→23:24)
[2024-02-12] MEDS: fentaNYL 2,500 MCG/250 ML BAG 2,500 MCG/250 ML BAG 20 MCG IV (01:31)
[2024-02-12] MEDS: IPRATROPIUM RT 0.5 MG/ 2.5 ML NEBU INH ×6 (02:44→23:24)
[2024-02-12] MEDS: ALBUTEROL RT 2.5 MG/0.5 ML NEBU 10 MG INH (03:00)
--- NOTE | 2024-02-12 03:32 | PC.RT ---
PT removed from ventilator @ approx.0300 to be bagged for Desat to 79%. PT bagged back up to 97% and continuous Albuterol tx ordered by MD Marks.
[2024-02-12] MEDS: HYDROCORTISONE SOD SUCC INJ 100 MG VIAL IV (03:50)
[2024-02-12 04:37] LABS: Base Excess 5 (-3-3); HCO3 35 mEq/L (20-26); Inspired Oxygen, FIO2 50 %; O2 Saturation 90 % (91-98); PCO2 83 mmHg (32.0-48.0); PO2 65 mmHg (83-108); pH, Arterial 7.24 (7.35-7.45)
[2024-02-12 04:46] LABS: Allen Test Performed/OK; Puncture Site Right Radial
[2024-02-12] MEDS: HEPARIN SOD INJ 5000 UNIT/ML VIAL SC ×3 (05:53→21:46)
[2024-02-12 06:17] LABS: Basophils % (Auto) 0 % (0-2.5); Eosinophils % (Auto) 0 % (0-10); Hematocrit 42.3 % (36.0-46.0); Hemoglobin 12.9 g/dL (12.0-16.0); Immature Granulocytes % (Auto) 1 % (0-0); Immature Granulocytes Auto 0.23 Thou/mm3 (0.00-0.00); Lymphocytes # (Auto) 0.5 Thou/mm3 (1.0-4.8); Lymphocytes % (Auto) 2 % (10-50); Mean Corpuscular HGB Conc 30.5 g/dl (31.0-37.0); Mean Corpuscular Hemoglobin 31.9 pg (25.0-35.0); Mean Corpuscular Volume 104 fL (80-100); Monocytes # (Auto) 1.1 Thou/mm3 (0.0-0.8); Monocytes % (Auto) 6 % (0-12); Neutrophils # (Auto) 17.7 Thou/mm3 (1.8-7.7); Neutrophils % (Auto) 90 % (37-80); Nucleated Red Blood Cell # 0.02 Thou/mm3 (0.00-0.00); Nucleated Red Blood Cell % 0 /100 WBC (0); Platelet Count 317 Thou/mm3 (140-440); RDW Standard Deviation 55.8 fL (36.4-46.3); Red Blood Count 4.05 Miln/mm3 (4.00-5.20); White Blood Count 19.5 Thou/mm3 (3.6-11.0)
[2024-02-12 06:21] LABS: Lactate (Lactic Acid) 1.8 mMol/L (0.4-2.0)
[2024-02-12 06:56] LABS: Alanine Aminotransferase 29 U/L (10-49); Albumin, Serum 3.6 gm/dL (3.4-4.8); Albumin/Globulin Ratio 1.7 (1.2-2.2); Alkaline Phosphatase 70 U/L (46-116); Anion Gap 6 (7-16); Aspartate Amino Transferase 23 U/L (0-34); BUN/Creatinine Ratio 36 Ratio (12-20); Bilirubin,Total 0.2 mg/dL (0.3-1.2); Blood Urea Nitrogen 43 mg/dL (9-23); Calcium 8.3 mg/dL (8.3-10.6); Calcium (Corrected) 8.6 mg/dL (8.5-10.1); Chloride 104 mMol/L (98-107); Creatinine (Component) 1.2 mg/dL (0.6-1.3); Estimated Creatinine Clearance 24.8 mL/min (>60); Globulin 2.1 gm/dL (2.3-3.5); Glucose 159 mg/dL (74-106); Magnesium 3.3 mg/dL (1.6-2.6); Osmolality,Calculated 300 (275-295); Phosphorous 3.8 mg/dL (2.4-5.1); Potassium 4.9 mMol/L (3.4-5.1); Sodium 144 mMol/L (136-145); Total Protein 5.7 gm/dL (5.7-8.2); eGFR 48 See Note
[2024-02-12] MEDS: PROPOFOL 1,000 MG IVPB 1,000 MG/100 ML VIAL 7.841 MG IV (08:00)
[2024-02-12] MEDS: RINGERS LACTATED 1000 ML 500 ML 999 ML IV (08:10)
[2024-02-12] MEDS: NICOTINE PATCH 21 MG/24 HR PATCH.TD24 TOP (09:12)
[2024-02-12] MEDS: cefTRIAXone/D5w 1gm IV premix 50 ML IV (09:12)
[2024-02-12] MEDS: Magnesium Sulfate 2 GM Ivpb 2 GM/50 ML BAG IV (09:13)
[2024-02-12] MEDS: PANTOPRAZOLE INJ 40 MG VIAL IV (09:13)
[2024-02-12] MEDS: RINGERS LACTATED 1000 ML 1,000 ML 999 ML IV (10:01)
[2024-02-12] MEDS: fentaNYL 2,500 MCG/250 ML BAG 2,500 MCG/250 ML BAG 30 MCG IV (11:15)
--- NOTE | 2024-02-12 13:39 | ESPR_ITS ---
<Statement entered by Madelyn Prabhakar DO - 02/12/24 22:59> Senior attestation: Patient was examined and case was reviewed with team including attending physician. Note reviewed, I agree with most of its contents and agree with the patient's care. Overnight patient was given 1 hour breathing treatment, today received additional albuterol treatment and 1.5L total fluids, patient showing clinical response. Remains on mechanical ventilation. Madelyn Prabhakar DO PGY-3 Documentation for date of: 02/12/24 Subjective Subjective Interval history: Ms. Ramirez is a 73-year-old female with past medical history significant for asthma who presented to [facility] with a chief complaint of shortness of breath. Patient reported using levalbuterol inhaler daily, also is a former smoker and smoked for 40 years approximately half a pack a day daily however patient quit smoking cigarettes 6 months ago. Patient presented to ED on 02/02 for shortness of breath and was discharged home with antibiotics, her symptoms initially improved. However post to discharge patient's shortness of breath progressively worsened without improvement with her albuterol inhaler, which prompted her to come to the ED again on 02/07. Patient ambulates without difficulty, or shortness of breath. Patient denies recent travel history or sick contacts. In ED patient was saturating at 95% on 15 L via Oxy mask, was tachycardic and hypertensive. Bedside COVID was negative, lab findings did show leukocytosis WBC 12.8, polycythemia hemoglobin 16.4, BNP 369. On imaging chest x-ray Chest x-ray- COPD with moderate hyperexpansion, rounded masslike area in the right infrahilar region at least 4 cm, left base pneumonia, Chest CT- COPD, Pulmonary artery hypertension, Wedge-shaped density radiating from the right hilar region and these 5.4 x 3.8cm most consistent with atelectasis, without definite endobronchial lesion In the ED patient received breathing treatment and Solu- Medrol. Patient was admitted to floors for sepsis secondary to community- acquired pneumonia and acute hypoxic respiratory failure secondary to COPD exacerbation and suspicion of PE. Patient's hospital course was complicated by increased oxygen requirements, patient was placed on BiPAP, significant respiratory distress noted with respiratory rate in 40s and 50s, patient noted to be in atrial fibrillation, was started on amiodarone drip, initially patient was DNR/DNI, primary team discussed case with patient's family and they wanted to proceed with intubation hence patient was upgraded to ICU for further management and intubation. 02/11/2024: Patient seen and examined at bedside, overnight ventilator settings were changed, pH 7.18, pCO2 112 this morning, Nimbex and amiodarone drip was discontinued yesterday as patient was bradycardic. Patient started on albuterol every 4 hours, methylprednisolone IV, will be given 1 hour-long albuterol treatment, 2 g of IV magnesium a follow-up and clinically patient is dry started on maintenance fluids. Repeat ABG shows significant improvement in patient's pH. Otherwise we will continue mechanical ventilation, will repeat ABG in the morning. Cardiology saw the patient at bedside, possible atrial fibrillation due to underlying COPD. Will continue to monitor patient. 02/12/2024: Patient seen and examined at bedside, overnight patient was given 1 hour breathing treatment, magnesium and IV steroids as patient was desaturating, seen at bedside in morning, continues to remain on mechanical ventilation, significant improvement noted in patient's ABG analysis, pH 7.24, pCO2 83, pO2 65, bicarb 35. Otherwise acute kidney injury noted on labs, creatinine 1.2, GFR 48, BUN 43. Patient will be given 1 L LR bolus, will continue to monitor urine output closely, will follow renal panel in a.m. if patient's ABG and renal function improves in morning will consider weaning patient off of mechanical ventilation. Cardiology following patient closely. Will continue IV antibiotics, white count downtrending, no fevers noted. Exam Vital Signs Temp Pulse Resp BP Pulse Ox O2 Del Method O2 Flow Rate 98.9 F 49 L 15 136/74 H 95 Mechanical Ventilation 6 02/12/24 12:00 02/12/24 13:00 02/12/24 13:00 02/12/24 13:00 02/12/24 13:00 02/12/24 04:00 02/10/24 16:00 FiO2 40 02/12/24 12:00 Narrative Exam Physical Exam GENERAL: Frail thin elderly female, sedated on mechanical ventilation. HEENT: Normocephalic, atraumatic, mucous membranes dry. HEART: Regular rate and rhythm, no murmur, rubs, or gallops on auscultation LUNGS: Wheezing on auscultation both lobes. Currently intubated on mechanical ventilation. ABDOMEN: Soft, nondistended, nontender, positive bowel sounds. ?No guarding or rebound tenderness. SKIN: No Rash or ecchymoses. Dry skin. EXTREMITIES: No edema in lower extremities noted. NEUROLOGICAL: Alert and oriented x3, no gross neurological deficit, and patient able to move all 4 extremities. Objective Labs 02/14/24 04:09 02/14/24 04:09 Labs: Laboratory Results - last 24 hr 02/08/24 02/11/24 02/12/24 17:36 16:32 04:23 WBC RBC Hgb Hct MCV MCH MCHC RDW Std Deviation Plt Count Neut % (Auto) Lymph % (Auto) [place] % (Auto) Eos % (Auto) Baso % (Auto) Neut # (Auto) Lymph # (Auto) [place] # (Auto) Eos # (Auto) Baso # (Auto) Immature Gran # (Auto) Absolute Nucleated RBC Immature Gran % Nucleated RBC % Puncture Site Right Radial Right Radial ABG pH 7.26 L 7.24 L ABG pCO2 79 H* D 83 H* ABG pO2 116 H D 65 L D ABG HCO3 35 H 35 H ABG O2 Saturation 99 H 90 L ABG Base Excess 5 H 5 H FiO2 40 50 Sodium Potassium Chloride Carbon Dioxide Anion Gap BUN Creatinine Estim Creat Clear Calc eGFR BUN/Creatinine Ratio Glucose Calculated Osmolality Lactic Acid Calcium Corrected Calcium Phosphorus Magnesium Total Bilirubin AST ALT Alkaline Phosphatase Total Protein Albumin Globulin Albumin/Globulin Ratio Coccidioides IgG Ab Negative 02/12/24 02/12/24 05:00 05:15 WBC 19.5 H RBC 4.05 Hgb 12.9 Hct 42.3 MCV 104 H MCH 31.9 MCHC 30.5 L RDW Std Deviation 55.8 H Plt Count 317 D Neut % (Auto) 90 H Lymph % (Auto) 2 L [place] % (Auto) 6 Eos % (Auto) 0 Baso % (Auto) 0 Neut # (Auto) 17.7 H Lymph # (Auto) 0.5 L [place] # (Auto) 1.1 H Eos # (Auto) 0.0 Baso # (Auto) 0.0 Immature Gran # (Auto) 0.23 H Absolute Nucleated RBC 0.02 H Immature Gran % 1 H Nucleated RBC % 0 Puncture Site ABG pH ABG pCO2 ABG pO2 ABG HCO3 ABG O2 Saturation ABG Base Excess FiO2 Sodium 144 Potassium 4.9 Chloride 104 Carbon Dioxide 34.0 H Anion Gap 6 L BUN 43 H Creatinine 1.2 Estim Creat Clear Calc 24.8 L eGFR 48 L BUN/Creatinine Ratio 36 H Glucose 159 H D Calculated Osmolality 300 H Lactic Acid 1.8 Calcium 8.3 Corrected Calcium 8.6 Phosphorus 3.8 Magnesium 3.3 H Total Bilirubin 0.2 L AST 23 ALT 29 Alkaline Phosphatase 70 Total Protein 5.7 Albumin 3.6 Globulin 2.1 L Albumin/Globulin Ratio 1.7 Coccidioides IgG Ab ABG Interpretation ABG results: 02/09/24 02/10/24 02/10/24 23:20 02:18 11:43 ABG pH ABG pCO2 ABG pO2 ABG HCO3 ABG O2 Saturation ABG Base Excess VBG pH 7.22 L 7.46 7.26 L VBG pCO2 95 H 46 D 95 H D VBG pO2 98 H 75 H D 66 H VBG Base Excess 7 H 8 H 11 H 02/10/24 02/10/24 02/11/24 16:30 22:02 05:22 ABG pH 7.25 L 7.20 L 7.18 L* ABG pCO2 95 H* 106 H* D 110 H* ABG pO2 71 L 73 L 110 H D ABG HCO3 41 H 41 H 41 H ABG O2 Saturation 94 93 98 ABG Base Excess 10 H 8 H 9 H VBG pH VBG pCO2 VBG pO2 VBG Base Excess 02/11/24 02/11/24 02/12/24 07:08 16:32 04:23 ABG pH 7.18 L* 7.26 L 7.24 L ABG pCO2 112 H* 79 H* D 83 H* ABG pO2 63 L D 116 H D 65 L D ABG HCO3 41 H 35 H 35 H ABG O2 Saturation 89 L 99 H 90 L ABG Base Excess 9 H 5 H 5 H VBG pH VBG pCO2 VBG pO2 VBG Base Excess Quality Measures Quality Measures none Advance care planning discussed with:: patient Assessment & Plan Assessment Current Active Medications: Generic Name Dose Route Start Last Admin Trade Name Freq PRN Reason Stop Dose Admin Acetaminophen 650 mg 02/09/24 10:08 02/10/24 10:55 Acetaminophen 325 Mg Tablet PO 03/09/24 17:05 650 mg Q6H PRN Administration Fever >100.3 Albuterol 2.5 mg 02/11/24 15:00 02/12/24 10:08 Albuterol Rt 2.5 Mg/0.5 Ml Nebu INH 03/12/24 14:59 2.5 mg Q4HRRT RAPHAEL Administration Albuterol 2.5 mg 02/11/24 21:53 02/12/24 00:34 Albuterol Rt 2.5 Mg/0.5 Ml Nebu INH 03/12/24 21:59 2.5 mg Q2HR PRN Administration SOB, wheezing Dextrose 25 ml 02/10/24 15:31 Dextrose 50%-Water Inj 50 Ml Syringe IV 03/11/24 15:30 Q15MIN PRN BG 50-70 responsive npo pt Dextrose 50 ml 02/10/24 15:31 Dextrose 50%-Water Inj 50 Ml Syringe IV 03/11/24 15:30 Q15MIN PRN BG <50 OR BG <70 & pt unresponsive Glucagon 1 mg 02/10/24 15:31 Glucagon Inj 1 Mg Vial IM Q15MIN PRN BG <70, and no IV access Heparin Sodium (Porcine) 5,000 unit 02/08/24 17:30 02/12/24 05:53 Heparin Sod Inj 5000 Unit/Ml Vial SC 02/22/24 17:29 5,000 unit Q8HR RAPHAEL Administration Azithromycin 500 mg/ Sodium 250 mls @ 250 mls/hr 02/09/24 14:00 02/11/24 17:53 Chloride IV 02/12/24 13:59 Infused QDAY@1400 RAPHAEL Infusion Ceftriaxone Sodium/Dextrose 50 mls @ 100 mls/hr 02/08/24 17:21 02/12/24 09:12 Rocephin/D5w 1gm Iv Premix IV 02/15/24 17:20 100 mls/hr QDAY RAPHAEL Administration Norepinephrine Bitartrate 16 mg in 250 mls @ 1.75 mls/hr 02/10/24 17:17 02/12/24 06:15 Levophed In Ns 16mg/250ml IV 03/11/24 17:16 0.45 mcg/kg/min .Q24H PRN 15.751 mls/hr PER PROTOCOL Titration Protocol 0.05 MCG/KG/MIN Vasopressin/Sodium Chloride 20 unit in 100 mls @ 9 mls/hr 02/10/24 19:25 02/11/24 16:28 Vasostrict/Ns Ivpb IV 03/11/24 19:24 0.03 unit/min .Q11H7M PRN 9 mls/hr PER PROTOCOL Administration Protocol 0.03 UNIT/MIN Propofol 1,000 mg in 100 mls @ 1.12 mls/hr 02/10/24 23:33 02/12/24 08:00 Diprivan Ivpb IV 03/11/24 18:52 35 mcg/kg/min .Q24H PRN 7.841 mls/hr PER PROTOCOL Administration Protocol 5 MCG/KG/MIN Fentanyl Citrate 2,500 mcg in 250 mls @ 2.5 mls/hr 02/10/24 23:34 02/12/24 11:15 Sublimaze Inj 2,500 Mcg/250 Ml Bag IV 02/15/24 16:49 300 mcg/hr .Q24H PRN 30 mls/hr PER PROTOCOL Administration Protocol 25 MCG/HR Ipratropium [place] 0.5 mg 02/10/24 23:00 02/12/24 10:07 Ipratropium Rt 0.5 Mg/ 2.5 Ml Nebu INH 03/11/24 22:59 0.5 mg Q4HRRT RAPHAEL Administration Ipratropium [place] 0.5 mg 02/10/24 19:46 Ipratropium Rt 0.5 Mg/ 2.5 Ml Nebu INH 03/11/24 19:45 Q2HR PRN SHORTNESS OF BREATH Methylprednisolone Sodium Succinate 40 mg 02/11/24 12:15 02/12/24 09:12 Methylprednisolone Sod Succ 40 Mg Vial IVP 02/18/24 12:14 40 mg DAILY RAPHAEL Administration Nicotine 21 mg 02/09/24 13:45 02/12/24 09:12 Nicotine Patch 21 Mg/24 Hr Patch.Td24 TOP 03/10/24 13:44 21 mg QDAY RAPHAEL Administration Ondansetron HCl 4 mg 02/08/24 17:06 Ondansetron Inj 2 Mg/Ml Inj 2 Ml IV 03/09/24 17:05 Q6H PRN NAUSEA OR VOMITING Protocol Pantoprazole Sodium 40 mg 02/08/24 18:15 02/12/24 09:13 Pantoprazole Inj 40 Mg Vial IV 03/09/24 18:14 40 mg QDAY RAPHAEL Administration Sodium Chloride 3 ml 02/09/24 11:39 02/12/24 06:11 Sodium Chloride Rt [place] 0.9% 3 Ml Nebu INH 03/10/24 11:38 3 ml PRN PRN Administration SOLN Plan Assessment and Plan: Summary: Ms. Ramirez is a 73-year-old female with history of asthma who presented to [facility] with chief complaint of shortness of breath, patient was started on IV antibiotics, IV steroids patient's respiratory status continued to worsen and patient was upgraded to ICU for further management of acute hypercapnic/hypoxic respiratory failure secondary to COPD exacerbation and community-acquired pneumonia. Neurological Patient is intubated and sedated. Cardiology #Atrial fibrillation with rapid ventricular response, resolved Patient had a rapid response, found to be in A-fib RVR with heart rate more than 180. Has no history of atrial fibrillation. [id number] Score: 3 Plan: -Telemonitoring -Cardiology consulted, appreciate recommendations #Hypertension Patient is on lisinopril at home Will hold patient blood pressure soft Pulmonary #Acute hypoxic, hypercapnic respiratory failure secondary to #COPD exacerbation #Community-acquired pneumonia, failed outpatient therapy #History of asthma Patient reported history of asthma, reports using levalbuterol inhaler at home. Patient was recently discharged from ED on PO antibiotics, had progressive worsening Patient is chronic smoker smoked full pack of cigarettes for 40 years, presented with shortness of breath Chest x-ray- COPD with moderate hyperexpansion, rounded masslike area in the right infrahilar region at least 4 cm, left base pneumonia Chest CT- COPD, Pulmonary artery hypertension, Wedge-shaped density radiating from the right hilar region and these 5.4 x 3.8cm most consistent with atelectasis, without definite endobronchial lesion VBG 02/10/24 shows pH 7.26, pCO2 95, pO2 66 Plan: -Patient will be intubated, started on mechanical ventilation -1 hour-long albuterol treatment today -2 g IV magnesium -Continue albuterol every 4 hours, ipratropium every 4 hour -Continue IV Solu-Medrol -albuterol every 2 hours as needed, ipratropium every 2 hours as needed -Continue ceftriaxone and azithromycin (02/07- -Tylenol as needed for fever Gastrointestinal GI prophylaxis: Pantoprazole 40 mg IV daily Renal/Genitourinary # Acute kidney injury Baseline BUN 10, creatinine 0.6, GFR more than 60 02/11-BUN 43, creatinine 1.2, GFR 48 Plan: -Patient will be given 1.5 L IV fluids today -Monitor renal function in morning -Monitor urine output closely -Strict BLANCO -Dose medications renally -Avoid nephrotoxic agents # Respiratory acidosis with compensated metabolic alkalosis -Will treat underlying COPD #Hyperkalemia, resolved. Endocrine Stable Hematology #Leukocytosis Treat underlying condition #Polycythemia H/O of smoking Monitor CBC in a.m. Infectious Disease #Sepsis #Community-acquired pneumonia Patient presented with tachycardia tachypnea and leukocytosis Was recently discharged from ED on antibiotics for suspicion of sepsis Cocci IgM negative, IgG pending, bedside COVID-negative Sputum culture negative, blood culture negative for 48 hours Plan: Continue ceftriaxone and azithromycin Tylenol as needed for fever Ordered RSV, Legionella, MRSA nasal screen, influenza DVT prophylaxis: Heparin SC every 8 hours GI prophylaxis: Protonix 40 mg IV daily Diet: N.p.o. Lines: Peripheral IV Code status: Full code Disposition: Currently intubated sedated on mechanical ventilation, will continue with ICU management Case discussed with Attending Dr. Andrew and Dr. Prabhakar PGY3. Sheryl Kirkland PGY1 Attending Provider Attestation/Addendum Patient seen and examined with above resident, Sheryl Kirkland MD. I agree with the findings, assessment, and plan of care as documented except for any differences below. Patient continues to have significant obstruction though it is unclear if this is fixed or if this may still be reversible. She remains on appropriate antibiotics and steroid regimen for acute COPD exacerbation. Patient requiring overnight ox 1 hour-long breathing treatment along with IV magnesium for severe obstruction and inability to adequately ventilate even though she has a long IT time and slow rate for optimal expiration. Patient's ABG continues to show adequate pH above 7.2 with tolerance of pCO2 in the 80s. Patient's renal function slowly improving after restriction of fluid as evidenced by good/brisk urine output despite elevated creatinine of 1.2 which may actually be related to azotemia from steroids. Patient also being followed by cardiology closely and they feel all ischemia/suggestion of infarction likely was due to demand ischemia from underlying lung disease. Patient's family remains at bedside and I have explained detail that she does not have definitive evidence of an irreversible underlying condition and that we will continue to aim for extubation. I however have reassured them based on their wishes to consider comfort measures only, and respect for this suggest limited time trial and based on her clinical response in coming days help family determine which route they would like to go. Total critical care time: I personally spent 40 minutes for review of physiologic parameters, directing plan of care throughout the day, coordination of care with other subspecialties, and counseling patient's family at bedside. This is exclusive of time spent teaching housestaff or performing any separate billable procedures. Patient continues to require critical care services for acute hypercapnic respiratory failure secondary to acute exacerbation of COPD. She remains at high risk for further morbidity and mortality warranting ongoing close monitoring and care when available in the intensive care unit.
--- NOTE | 2024-02-12 13:50 | PD.RESPROC ---
Procedures Procedure Date / Time 02/12/24 1100 Procedure Narrative Procedure Narrative: Attending attestation: I was present for the entire procedure. No immediate complications. Patient tolerated procedure well. Arterial Line Indication(s): frequent arterial line sampling and shock Informed consent obtained: obtained from surrogate decision maker Time out done, and the following verified: correct patient, side and site, procedure, patient position and implants and/or equipment Size (Gauge): 20 Technique used: guide wire technique Post-Procedure: line sutured into place and dry sterile dressing placed Patient tolerated procedure: well Complications: none Site: right and radial Procedure comment: Ultrasound-guided arterial line insertion initially attempted by Dr. Kirkland PGY1 on left radial artery, Dr. Prabhakar PGY 3 on right radial artery and completed by myself in the right radial without complication.
--- NOTE | 2024-02-12 15:42 | ESPR_ITS ---
<Statement entered by Adrian Brand MD - 02/15/24 09:05> I personally examined the patient evaluated the patient intensive care with resident physician remains on ventilator somewhat bradycardic agree with the treatment plan recommendation as documented by PGY 2 Dr. Antoni Gomez MD will monitor the patient as necessary Documentation for date of: 02/12/24 Subjective Subjective Interval history: Patient seen and assessed at bedside in ICU. Patient continues on mechanical ventilation. Heart rate in the mid 40s. Patient does have propofol and fentanyl currently running which can cause bradycardia. Exam Vital Signs Temp Pulse Resp BP Pulse Ox O2 Del Method O2 Flow Rate 98.9 F 48 L 16 143/61 H 97 Mechanical Ventilation 6 02/12/24 12:00 02/12/24 14:46 02/12/24 14:46 02/12/24 14:46 02/12/24 14:46 02/12/24 04:00 02/10/24 16:00 FiO2 40 02/12/24 14:30 Narrative Exam GENERAL: Frail thin elderly female, sedated on mechanical ventilation. HEART: Regular rate and rhythm, no murmur, rubs, or gallops on auscultation LUNGS: Wheezing on auscultation both lobes. Currently intubated on mechanical ventilation. SKIN: No Rash or ecchymoses. Dry skin. EXTREMITIES: No edema in lower extremities noted. Objective Labs 02/12/24 05:00 02/12/24 05:15 Labs: Laboratory Results - last 24 hr 02/11/24 02/12/24 02/12/24 16:32 04:23 05:00 WBC 19.5 H RBC 4.05 Hgb 12.9 Hct 42.3 MCV 104 H MCH 31.9 MCHC 30.5 L RDW Std Deviation 55.8 H Plt Count 317 D Neut % (Auto) 90 H Lymph % (Auto) 2 L [place] % (Auto) 6 Eos % (Auto) 0 Baso % (Auto) 0 Neut # (Auto) 17.7 H Lymph # (Auto) 0.5 L [place] # (Auto) 1.1 H Eos # (Auto) 0.0 Baso # (Auto) 0.0 Immature Gran # (Auto) 0.23 H Absolute Nucleated RBC 0.02 H Immature Gran % 1 H Nucleated RBC % 0 Puncture Site Right Radial Right Radial ABG pH 7.26 L 7.24 L ABG pCO2 79 H* D 83 H* ABG pO2 116 H D 65 L D ABG HCO3 35 H 35 H ABG O2 Saturation 99 H 90 L ABG Base Excess 5 H 5 H FiO2 40 50 Sodium Potassium Chloride Carbon Dioxide Anion Gap BUN Creatinine Estim Creat Clear Calc eGFR BUN/Creatinine Ratio Glucose Calculated Osmolality Lactic Acid Calcium Corrected Calcium Phosphorus Magnesium Total Bilirubin AST ALT Alkaline Phosphatase Total Protein Albumin Globulin Albumin/Globulin Ratio 02/12/24 05:15 WBC RBC Hgb Hct MCV MCH MCHC RDW Std Deviation Plt Count Neut % (Auto) Lymph % (Auto) [place] % (Auto) Eos % (Auto) Baso % (Auto) Neut # (Auto) Lymph # (Auto) [place] # (Auto) Eos # (Auto) Baso # (Auto) Immature Gran # (Auto) Absolute Nucleated RBC Immature Gran % Nucleated RBC % Puncture Site ABG pH ABG pCO2 ABG pO2 ABG HCO3 ABG O2 Saturation ABG Base Excess FiO2 Sodium 144 Potassium 4.9 Chloride 104 Carbon Dioxide 34.0 H Anion Gap 6 L BUN 43 H Creatinine 1.2 Estim Creat Clear Calc 24.8 L eGFR 48 L BUN/Creatinine Ratio 36 H Glucose 159 H D Calculated Osmolality 300 H Lactic Acid 1.8 Calcium 8.3 Corrected Calcium 8.6 Phosphorus 3.8 Magnesium 3.3 H Total Bilirubin 0.2 L AST 23 ALT 29 Alkaline Phosphatase 70 Total Protein 5.7 Albumin 3.6 Globulin 2.1 L Albumin/Globulin Ratio 1.7 ABG Interpretation ABG results: 02/09/24 02/10/24 02/10/24 23:20 02:18 11:43 ABG pH ABG pCO2 ABG pO2 ABG HCO3 ABG O2 Saturation ABG Base Excess VBG pH 7.22 L 7.46 7.26 L VBG pCO2 95 H 46 D 95 H D VBG pO2 98 H 75 H D 66 H VBG Base Excess 7 H 8 H 11 H 02/10/24 02/10/24 02/11/24 16:30 22:02 05:22 ABG pH 7.25 L 7.20 L 7.18 L* ABG pCO2 95 H* 106 H* D 110 H* ABG pO2 71 L 73 L 110 H D ABG HCO3 41 H 41 H 41 H ABG O2 Saturation 94 93 98 ABG Base Excess 10 H 8 H 9 H VBG pH VBG pCO2 VBG pO2 VBG Base Excess 02/11/24 02/11/24 02/12/24 07:08 16:32 04:23 ABG pH 7.18 L* 7.26 L 7.24 L ABG pCO2 112 H* 79 H* D 83 H* ABG pO2 63 L D 116 H D 65 L D ABG HCO3 41 H 35 H 35 H ABG O2 Saturation 89 L 99 H 90 L ABG Base Excess 9 H 5 H 5 H VBG pH VBG pCO2 VBG pO2 VBG Base Excess Quality Measures Quality Measures none Advance care planning discussed with:: other Assessment & Plan Assessment Current Active Medications: Generic Name Dose Route Start Last Admin Trade Name Freq PRN Reason Stop Dose Admin Acetaminophen 650 mg 02/09/24 10:08 02/10/24 10:55 Acetaminophen 325 Mg Tablet PO 03/09/24 17:05 650 mg Q6H PRN Administration Fever >100.3 Albuterol 2.5 mg 02/11/24 15:00 02/12/24 14:28 Albuterol Rt 2.5 Mg/0.5 Ml Nebu INH 03/12/24 14:59 2.5 mg Q4HRRT RAPHAEL Administration Albuterol 2.5 mg 02/11/24 21:53 02/12/24 00:34 Albuterol Rt 2.5 Mg/0.5 Ml Nebu INH 03/12/24 21:59 2.5 mg Q2HR PRN Administration SOB, wheezing Dextrose 25 ml 02/10/24 15:31 Dextrose 50%-Water Inj 50 Ml Syringe IV 03/11/24 15:30 Q15MIN PRN BG 50-70 responsive npo pt Dextrose 50 ml 02/10/24 15:31 Dextrose 50%-Water Inj 50 Ml Syringe IV 03/11/24 15:30 Q15MIN PRN BG <50 OR BG <70 & pt unresponsive Glucagon 1 mg 02/10/24 15:31 Glucagon Inj 1 Mg Vial IM Q15MIN PRN BG <70, and no IV access Heparin Sodium (Porcine) 5,000 unit 02/08/24 17:30 02/12/24 14:49 Heparin Sod Inj 5000 Unit/Ml Vial SC 02/22/24 17:29 5,000 unit Q8HR RAPHAEL Administration Ceftriaxone Sodium/Dextrose 50 mls @ 100 mls/hr 02/08/24 17:21 02/12/24 09:12 Rocephin/D5w 1gm Iv Premix IV 02/15/24 17:20 100 mls/hr QDAY RAPHAEL Administration Norepinephrine Bitartrate 16 mg in 250 mls @ 1.75 mls/hr 02/10/24 17:17 02/12/24 14:00 Levophed In Ns 16mg/250ml IV 03/11/24 17:16 0.19 mcg/kg/min .Q24H PRN 6.65 mls/hr PER PROTOCOL Titration Protocol 0.05 MCG/KG/MIN Vasopressin/Sodium Chloride 20 unit in 100 mls @ 9 mls/hr 02/10/24 19:25 02/11/24 16:28 Vasostrict/Ns Ivpb IV 03/11/24 19:24 0.03 unit/min .Q11H7M PRN 9 mls/hr PER PROTOCOL Administration Protocol 0.03 UNIT/MIN Propofol 1,000 mg in 100 mls @ 1.12 mls/hr 02/10/24 23:33 02/12/24 15:00 Diprivan Ivpb IV 03/11/24 18:52 25 mcg/kg/min .Q24H PRN 5.6 mls/hr PER PROTOCOL Titration Protocol 5 MCG/KG/MIN Fentanyl Citrate 2,500 mcg in 250 mls @ 2.5 mls/hr 02/10/24 23:34 02/12/24 14:26 Sublimaze Inj 2,500 Mcg/250 Ml Bag IV 02/15/24 16:49 250 mcg/hr .Q24H PRN 25 mls/hr PER PROTOCOL Titration Protocol 25 MCG/HR Ipratropium [place] 0.5 mg 02/10/24 23:00 02/12/24 14:26 Ipratropium Rt 0.5 Mg/ 2.5 Ml Nebu INH 03/11/24 22:59 0.5 mg Q4HRRT RAPHAEL Administration Ipratropium [place] 0.5 mg 02/10/24 19:46 Ipratropium Rt 0.5 Mg/ 2.5 Ml Nebu INH 03/11/24 19:45 Q2HR PRN SHORTNESS OF BREATH Methylprednisolone Sodium Succinate 40 mg 02/11/24 12:15 02/12/24 09:12 Methylprednisolone Sod Succ 40 Mg Vial IVP 02/18/24 12:14 40 mg DAILY RAPHAEL Administration Nicotine 21 mg 02/09/24 13:45 02/12/24 09:12 Nicotine Patch 21 Mg/24 Hr Patch.Td24 TOP 03/10/24 13:44 21 mg QDAY RAPHAEL Administration Ondansetron HCl 4 mg 02/08/24 17:06 Ondansetron Inj 2 Mg/Ml Inj 2 Ml IV 03/09/24 17:05 Q6H PRN NAUSEA OR VOMITING Protocol Pantoprazole Sodium 40 mg 02/08/24 18:15 02/12/24 09:13 Pantoprazole Inj 40 Mg Vial IV 03/09/24 18:14 40 mg QDAY RAPHAEL Administration Sodium Chloride 3 ml 02/09/24 11:39 02/12/24 06:11 Sodium Chloride Rt [place] 0.9% 3 Ml Nebu INH 03/10/24 11:38 3 ml PRN PRN Administration SOLN Plan Ms. Ramirez is a 73-year-old female with past medical history significant for asthma and hypertension who presented to [facility] with a chief complaint of shortness of breath. Patient eventually had a rapid response during admission and was being supplemented by BiPAP but eventually required upgrade to ICU for intubation and mechanical ventilation. Cardiology was consulted for episode of A-fib with RVR during rapid response. #A-fib with RVR?resolved Cardiac echo shows normal left ventricle with EF 55% [id number] score 3, 4.6% stroke risk. Keep potassium above 4, keep magnesium above 2. Should patient revert back to A-fib with RVR recommend diltiazem push of 15 mg. #Hypertension #Acute hypoxic, hypercapnic respiratory failure secondary to #COPD exacerbation #Community-acquired pneumonia, failed outpatient therapy #History of asthma #Hyperkalemia #Leukocytosis #Polycythemia #Sepsis #Community-acquired pneumonia Continue management per primary team Case discussed with hide washer Dr. Sunday Gomez MD PGY3
[2024-02-12] MEDS: Norepinephrine/NS 16mg/250ml 16 MG/250 ML BAG 6.65 MG IV (15:52)
[2024-02-12] MEDS: VASOPRESSIN IN NS IVPB 20 UNIT/100 ML BAG 9 UNIT IV (15:53)
[2024-02-12] MEDS: fentaNYL 2,500 MCG/250 ML BAG 2,500 MCG/250 ML BAG 25 MCG IV (21:31)
[2024-02-13] VITALS (109 sets, daily range): BP systolic 95–167; BP diastolic 40–104; PULSE 40–120; RESP 10–21; TEMP 35.8–36.3; O2SAT 76–100
[2024-02-13] MEDS: ALBUTEROL RT 2.5 MG/0.5 ML NEBU INH ×7 (00:51→22:22)
[2024-02-13] MEDS: IPRATROPIUM RT 0.5 MG/ 2.5 ML NEBU INH ×7 (00:51→22:22)
[2024-02-13] MEDS: PROPOFOL 1,000 MG IVPB 1,000 MG/100 ML VIAL 4.48 MG IV (03:50)
[2024-02-13] MEDS: VASOPRESSIN IN NS IVPB 20 UNIT/100 ML BAG 9 UNIT IV ×2 (03:50→15:34)
[2024-02-13 05:23] LABS: Base Excess 7 (-3-3); HCO3 35 mEq/L (20-26); Inspired Oxygen, FIO2 28 %; O2 Saturation 91 % (91-98); PCO2 71 mmHg (32.0-48.0); PO2 61 mmHg (83-108); pH, Arterial 7.31 (7.35-7.45)
[2024-02-13 05:43] LABS: Allen Test Performed/OK; Puncture Site Arterial Line
[2024-02-13] MEDS: HEPARIN SOD INJ 5000 UNIT/ML VIAL SC ×3 (05:55→21:27)
[2024-02-13 06:21] LABS: Basophils % (Auto) 0 % (0-2.5); Eosinophils % (Auto) 0 % (0-10); Hematocrit 39.5 % (36.0-46.0); Hemoglobin 11.9 g/dL (12.0-16.0); Immature Granulocytes % (Auto) 1 % (0-0); Immature Granulocytes Auto 0.09 Thou/mm3 (0.00-0.00); Lymphocytes # (Auto) 0.6 Thou/mm3 (1.0-4.8); Lymphocytes % (Auto) 5 % (10-50); Mean Corpuscular HGB Conc 30.1 g/dl (31.0-37.0); Mean Corpuscular Hemoglobin 31.2 pg (25.0-35.0); Mean Corpuscular Volume 104 fL (80-100); Monocytes # (Auto) 0.8 Thou/mm3 (0.0-0.8); Monocytes % (Auto) 6 % (0-12); Neutrophils # (Auto) 10.8 Thou/mm3 (1.8-7.7); Neutrophils % (Auto) 88 % (37-80); Nucleated Red Blood Cell % 0 /100 WBC (0); Platelet Count 209 Thou/mm3 (140-440); RDW Standard Deviation 55.9 fL (36.4-46.3); Red Blood Count 3.81 Miln/mm3 (4.00-5.20); White Blood Count 12.2 Thou/mm3 (3.6-11.0)
[2024-02-13 07:03] LABS: Alanine Aminotransferase 23 U/L (10-49); Albumin, Serum 3.1 gm/dL (3.4-4.8); Albumin/Globulin Ratio 1.4 (1.2-2.2); Alkaline Phosphatase 60 U/L (46-116); Anion Gap 4 (7-16); Aspartate Amino Transferase 21 U/L (0-34); BUN/Creatinine Ratio 60 Ratio (12-20); Bilirubin,Total 0.2 mg/dL (0.3-1.2); Blood Urea Nitrogen 36 mg/dL (9-23); Calcium 8.2 mg/dL (8.3-10.6); Calcium (Corrected) 8.9 mg/dL (8.5-10.1); Carbon Dioxide 33.6 mMol/L (20.0-31.0); Chloride 108 mMol/L (98-107); Creatinine (Component) 0.6 mg/dL (0.6-1.3); Estimated Creatinine Clearance 52.6 mL/min (>60); Globulin 2.2 gm/dL (2.3-3.5); Glucose 121 mg/dL (74-106); Osmolality,Calculated 299 (275-295); Phosphorous 2.2 mg/dL (2.4-5.1); Potassium 4.7 mMol/L (3.4-5.1); Sodium 146 mMol/L (136-145); Total Protein 5.3 gm/dL (5.7-8.2); eGFR > 60 See Note
[2024-02-13] MEDS: fentaNYL 2,500 MCG/250 ML BAG 2,500 MCG/250 ML BAG 20 MCG IV (07:37)
[2024-02-13] MEDS: PANTOPRAZOLE INJ 40 MG VIAL IV (08:21)
[2024-02-13] MEDS: cefTRIAXone/D5w 1gm IV premix 50 ML IV (08:21)
[2024-02-13] MEDS: NICOTINE PATCH 21 MG/24 HR PATCH.TD24 TOP (08:21)
--- NOTE | 2024-02-13 15:13 | PC.SS ---
DOUGHNUT FRYER conducted bedside contact with the patient. Present at bedside was patient's spouse and daughter, Sravani Peña. Patient remains intubated, off sedation. Plan is to continue weaning patient off of ventilation.
--- NOTE | 2024-02-13 15:16 | PC.SS ---
Update: Patient remains intubated. Off sedation. Patient on presser support. No skin issues. Gross catheter in place. Plan for possible extubation.
--- NOTE | 2024-02-13 15:39 | ESPR_ITS ---
<Statement entered by Adrian Brand MD - 02/15/24 09:07> I personally examined the patient along with resident physician Dr. Weber agrees PGY2 patient is back in sinus rhythm but still intensive care unit due to hypoxic respiratory failure will sign off the case unless patient has a cardiac arrhythmias Documentation for date of: 02/13/24 Subjective Subjective Interval history: Patient seen and assessed at bedside in ICU. Patient continues to be in sinus rhythm off of amiodarone for 2 days. Heart rate in the mid 60s and ICU team is working on weaning off sedation and ventilation. Exam Vital Signs Temp Pulse Resp BP Pulse Ox O2 Del Method O2 Flow Rate 97.2 F 68 14 127/73 89 L Mechanical Ventilation 6 02/13/24 12:00 02/13/24 15:15 02/13/24 15:15 02/13/24 15:15 02/13/24 15:15 02/13/24 15:00 02/10/24 16:00 FiO2 35 02/13/24 15:00 Narrative Exam GENERAL: Frail thin elderly female, sedated on mechanical ventilation. HEART: Regular rate and rhythm, no murmur, rubs, or gallops on auscultation LUNGS: Mild wheezing on auscultation. Currently intubated on mechanical ventilation. SKIN: No Rash or ecchymoses. Dry skin. EXTREMITIES: No edema in lower extremities noted. Objective Labs 02/13/24 05:40 02/13/24 05:40 Labs: Laboratory Results - last 24 hr 02/13/24 02/13/24 04:43 05:40 WBC 12.2 H D RBC 3.81 L Hgb 11.9 L Hct 39.5 MCV 104 H MCH 31.2 MCHC 30.1 L RDW Std Deviation 55.9 H Plt Count 209 D Neut % (Auto) 88 H Lymph % (Auto) 5 L [place] % (Auto) 6 Eos % (Auto) 0 Baso % (Auto) 0 Neut # (Auto) 10.8 H Lymph # (Auto) 0.6 L [place] # (Auto) 0.8 Eos # (Auto) 0.0 Baso # (Auto) 0.0 Immature Gran # (Auto) 0.09 H Absolute Nucleated RBC 0.00 Immature Gran % 1 H Nucleated RBC % 0 Puncture Site Arterial Line ABG pH 7.31 L ABG pCO2 71 H* D ABG pO2 61 L ABG HCO3 35 H ABG O2 Saturation 91 ABG Base Excess 7 H FiO2 28 Sodium 146 H Potassium 4.7 Chloride 108 H Carbon Dioxide 33.6 H Anion Gap 4 L BUN 36 H Creatinine 0.6 D Estim Creat Clear Calc 52.6 L eGFR > 60 BUN/Creatinine Ratio 60 H Glucose 121 H Calculated Osmolality 299 H Calcium 8.2 L Corrected Calcium 8.9 Phosphorus 2.2 L Magnesium 3.0 H Total Bilirubin 0.2 L AST 21 ALT 23 Alkaline Phosphatase 60 Total Protein 5.3 L Albumin 3.1 L D Globulin 2.2 L Albumin/Globulin Ratio 1.4 ABG Interpretation ABG results: 02/09/24 02/10/24 02/10/24 23:20 02:18 11:43 ABG pH ABG pCO2 ABG pO2 ABG HCO3 ABG O2 Saturation ABG Base Excess VBG pH 7.22 L 7.46 7.26 L VBG pCO2 95 H 46 D 95 H D VBG pO2 98 H 75 H D 66 H VBG Base Excess 7 H 8 H 11 H 02/10/24 02/10/24 02/11/24 16:30 22:02 05:22 ABG pH 7.25 L 7.20 L 7.18 L* ABG pCO2 95 H* 106 H* D 110 H* ABG pO2 71 L 73 L 110 H D ABG HCO3 41 H 41 H 41 H ABG O2 Saturation 94 93 98 ABG Base Excess 10 H 8 H 9 H VBG pH VBG pCO2 VBG pO2 VBG Base Excess 02/11/24 02/11/24 02/12/24 07:08 16:32 04:23 ABG pH 7.18 L* 7.26 L 7.24 L ABG pCO2 112 H* 79 H* D 83 H* ABG pO2 63 L D 116 H D 65 L D ABG HCO3 41 H 35 H 35 H ABG O2 Saturation 89 L 99 H 90 L ABG Base Excess 9 H 5 H 5 H VBG pH VBG pCO2 VBG pO2 VBG Base Excess 02/13/24 04:43 ABG pH 7.31 L ABG pCO2 71 H* D ABG pO2 61 L ABG HCO3 35 H ABG O2 Saturation 91 ABG Base Excess 7 H VBG pH VBG pCO2 VBG pO2 VBG Base Excess Quality Measures Quality Measures none Advance care planning discussed with:: other Assessment & Plan Assessment Current Active Medications: Generic Name Dose Route Start Last Admin Trade Name Freq PRN Reason Stop Dose Admin Acetaminophen 650 mg 02/09/24 10:08 02/10/24 10:55 Acetaminophen 325 Mg Tablet PO 03/09/24 17:05 650 mg Q6H PRN Administration Fever >100.3 Albuterol 2.5 mg 02/11/24 15:00 02/13/24 14:20 Albuterol Rt 2.5 Mg/0.5 Ml Nebu INH 03/12/24 14:59 2.5 mg Q4HRRT RAPHAEL Administration Albuterol 2.5 mg 02/11/24 21:53 02/13/24 00:51 Albuterol Rt 2.5 Mg/0.5 Ml Nebu INH 03/12/24 21:59 2.5 mg Q2HR PRN Administration SOB, wheezing Protocol Dextrose 25 ml 02/10/24 15:31 Dextrose 50%-Water Inj 50 Ml Syringe IV 03/11/24 15:30 Q15MIN PRN BG 50-70 responsive npo pt Dextrose 50 ml 02/10/24 15:31 Dextrose 50%-Water Inj 50 Ml Syringe IV 03/11/24 15:30 Q15MIN PRN BG <50 OR BG <70 & pt unresponsive Glucagon 1 mg 02/10/24 15:31 Glucagon Inj 1 Mg Vial IM Q15MIN PRN BG <70, and no IV access Heparin Sodium (Porcine) 5,000 unit 02/08/24 17:30 02/13/24 14:49 Heparin Sod Inj 5000 Unit/Ml Vial SC 02/22/24 17:29 5,000 unit Q8HR RAPHAEL Administration Ceftriaxone Sodium/Dextrose 50 mls @ 100 mls/hr 02/08/24 17:21 02/13/24 09:18 Rocephin/D5w 1gm Iv Premix IV 02/15/24 17:20 Infused QDAY RAPHAEL Infusion Norepinephrine Bitartrate 16 mg in 250 mls @ 1.75 mls/hr 02/10/24 17:17 02/13/24 14:00 Levophed In Ns 16mg/250ml IV 03/11/24 17:16 0.11 mcg/kg/min .Q24H PRN 3.85 mls/hr PER PROTOCOL Titration Protocol 0.05 MCG/KG/MIN Vasopressin/Sodium Chloride 20 unit in 100 mls @ 9 mls/hr 02/10/24 19:25 02/13/24 15:34 Vasostrict/Ns Ivpb IV 03/11/24 19:24 0.03 unit/min .Q11H7M PRN 9 mls/hr PER PROTOCOL Administration Protocol 0.03 UNIT/MIN Propofol 1,000 mg in 100 mls @ 1.12 mls/hr 02/10/24 23:33 02/13/24 10:49 Diprivan Ivpb IV 03/11/24 18:52 0 mcg/kg/min .Q24H PRN 0 mls/hr PER PROTOCOL Titration Protocol 5 MCG/KG/MIN Fentanyl Citrate 2,500 mcg in 250 mls @ 2.5 mls/hr 02/10/24 23:34 02/13/24 14:00 Sublimaze Inj 2,500 Mcg/250 Ml Bag IV 02/15/24 16:49 0 mcg/hr .Q24H PRN 0 mls/hr PER PROTOCOL Titration Protocol 25 MCG/HR Ipratropium [place] 0.5 mg 02/10/24 23:00 02/13/24 14:20 Ipratropium Rt 0.5 Mg/ 2.5 Ml Nebu INH 03/11/24 22:59 0.5 mg Q4HRRT RAPHAEL Administration Ipratropium [place] 0.5 mg 02/10/24 19:46 02/13/24 00:51 Ipratropium Rt 0.5 Mg/ 2.5 Ml Nebu INH 03/11/24 19:45 0.5 mg Q2HR PRN Administration SHORTNESS OF BREATH Protocol Methylprednisolone Sodium Succinate 40 mg 02/11/24 12:15 02/13/24 08:21 Methylprednisolone Sod Succ 40 Mg Vial IVP 02/18/24 12:14 40 mg DAILY RAPHAEL Administration Nicotine 21 mg 02/09/24 13:45 02/13/24 08:21 Nicotine Patch 21 Mg/24 Hr Patch.Td24 TOP 03/10/24 13:44 21 mg QDAY RAPHAEL Administration Ondansetron HCl 4 mg 02/08/24 17:06 Ondansetron Inj 2 Mg/Ml Inj 2 Ml IV 03/09/24 17:05 Q6H PRN NAUSEA OR VOMITING Protocol Pantoprazole Sodium 40 mg 02/08/24 18:15 02/13/24 08:21 Pantoprazole Inj 40 Mg Vial IV 03/09/24 18:14 40 mg QDAY RAPHAEL Administration Sodium Chloride 3 ml 02/09/24 11:39 02/12/24 06:11 Sodium Chloride Rt [place] 0.9% 3 Ml Nebu INH 03/10/24 11:38 3 ml PRN PRN Administration SOLN Plan Ms. Ramirez is a 73-year-old female with past medical history significant for asthma and hypertension who presented to [facility] with a chief complaint of shortness of breath. Patient eventually had a rapid response during admission and was being supplemented by BiPAP but eventually required upgrade to ICU for intubation and mechanical ventilation. Cardiology was consulted for episode of A-fib with RVR during rapid response. #A-fib with RVR?resolved Cardiac echo shows normal left ventricle with EF 55% [id number] score 3, 4.6% stroke risk. Keep potassium above 4, keep magnesium above 2. Should patient revert back to A-fib with RVR recommend diltiazem push of 15 mg. #Hypertension #Acute hypoxic, hypercapnic respiratory failure secondary to #COPD exacerbation #Community-acquired pneumonia, failed outpatient therapy #History of asthma #Hyperkalemia #Leukocytosis #Polycythemia #Sepsis #Community-acquired pneumonia Continue management per primary team Case discussed with piano regulator Dr. Sunday Gomez MD PGY3 Cardiology will sign off at this time as patient has remained stable. Thank you for the consultation, and feel free to consult cardiology should you have any further questions.
--- NOTE | 2024-02-13 16:08 | ESPR_ITS ---
<Statement entered by Madelyn Prabhakar DO - 02/13/24 22:12> Senior attestation: Patient was examined and case was reviewed with team including attending physician. Note reviewed, I agree with most of its contents and agree with the patient's care. Weaned off propofol and fentanyl today, will start precedex only with plan to pursue SBT possible extubation tomorrow if clinically warranted. Will permit tidal volumes up to 800 ml. Madelyn Prabhakar DO PGY-3 Documentation for date of: 02/13/24 Subjective Subjective Interval history: Ms. Ramirez is a 73-year-old female with past medical history significant for asthma who presented to [facility] with a chief complaint of shortness of breath. Patient reported using levalbuterol inhaler daily, also is a former smoker and smoked for 40 years approximately half a pack a day daily however patient quit smoking cigarettes 6 months ago. Patient presented to ED on 02/02 for shortness of breath and was discharged home with antibiotics, her symptoms initially improved. However post to discharge patient's shortness of breath progressively worsened without improvement with her albuterol inhaler, which prompted her to come to the ED again on 02/07. Patient ambulates without difficulty, or shortness of breath. Patient denies recent travel history or sick contacts. In ED patient was saturating at 95% on 15 L via Oxy mask, was tachycardic and hypertensive. Bedside COVID was negative, lab findings did show leukocytosis WBC 12.8, polycythemia hemoglobin 16.4, BNP 369. On imaging chest x-ray Chest x-ray- COPD with moderate hyperexpansion, rounded masslike area in the right infrahilar region at least 4 cm, left base pneumonia, Chest CT- COPD, Pulmonary artery hypertension, Wedge-shaped density radiating from the right hilar region and these 5.4 x 3.8cm most consistent with atelectasis, without definite endobronchial lesion In the ED patient received breathing treatment and Solu- Medrol. Patient was admitted to floors for sepsis secondary to community- acquired pneumonia and acute hypoxic respiratory failure secondary to COPD exacerbation and suspicion of PE. Patient's hospital course was complicated by increased oxygen requirements, patient was placed on BiPAP, significant respiratory distress noted with respiratory rate in 40s and 50s, patient noted to be in atrial fibrillation, was started on amiodarone drip, initially patient was DNR/DNI, primary team discussed case with patient's family and they wanted to proceed with intubation hence patient was upgraded to ICU for further management and intubation. 02/11/2024: Patient seen and examined at bedside, overnight ventilator settings were changed, pH 7.18, pCO2 112 this morning, Nimbex and amiodarone drip was discontinued yesterday as patient was bradycardic. Patient started on albuterol every 4 hours, methylprednisolone IV, will be given 1 hour-long albuterol treatment, 2 g of IV magnesium a follow-up and clinically patient is dry started on maintenance fluids. Repeat ABG shows significant improvement in patient's pH. Otherwise we will continue mechanical ventilation, will repeat ABG in the morning. Cardiology saw the patient at bedside, possible atrial fibrillation due to underlying COPD. Will continue to monitor patient. 02/12/2024: Patient seen and examined at bedside, overnight patient was given 1 hour breathing treatment, magnesium and IV steroids as patient was desaturating, seen at bedside in morning, continues to remain on mechanical ventilation, significant improvement noted in patient's ABG analysis, pH 7.24, pCO2 83, pO2 65, bicarb 35. Otherwise acute kidney injury noted on labs, creatinine 1.2, GFR 48, BUN 43. Patient will be given 1 L LR bolus, will continue to monitor urine output closely, will follow renal panel in a.m. if patient's ABG and renal function improves in morning will consider weaning patient off of mechanical ventilation. Cardiology following patient closely. Will continue IV antibiotics, white count downtrending, no fevers noted. 02/13/2024: Patient seen and examined at bedside, overnight patient's saturation went to low 80s, FiO2 was increased and patient's oxygenation improved. Patient will be weaned off of sedation today, will only use Precedex if patient is restless/agitated, plan to wean patient off of ventilation in the morning, will continue with large-volume for now. Patient has end-stage COPD, renal function has improved, creatinine back to baseline today. Completed therapy on ceftriaxone and azithromycin. If patient's pulmonary function is stable, will try to wean off patient off mechanical ventilation in a.m. Will continue to monitor patient, no sedation overnight, use Precedex as needed. Exam Vital Signs Temp Pulse Resp BP Pulse Ox O2 Del Method O2 Flow Rate 97.2 F 68 14 127/73 89 L Mechanical Ventilation 6 02/13/24 12:00 02/13/24 15:15 02/13/24 15:15 02/13/24 15:15 02/13/24 15:15 02/13/24 15:00 02/10/24 16:00 FiO2 35 02/13/24 15:00 Narrative Exam Physical Exam GENERAL: Frail thin elderly female, sedated on mechanical ventilation. HEENT: Normocephalic, atraumatic, mucous membranes dry. HEART: Regular rate and rhythm, no murmur, rubs, or gallops on auscultation LUNGS: Wheezing on auscultation both lobes. Currently intubated on mechanical ventilation. ABDOMEN: Soft, nondistended, nontender, positive bowel sounds. ?No guarding or rebound tenderness. SKIN: No Rash or ecchymoses. Dry skin. EXTREMITIES: No edema in lower extremities noted. NEUROLOGICAL: Alert and oriented x3, no gross neurological deficit, and patient able to move all 4 extremities. Objective Labs 02/13/24 05:40 02/13/24 05:40 Labs: Laboratory Results - last 24 hr 02/13/24 02/13/24 04:43 05:40 WBC 12.2 H D RBC 3.81 L Hgb 11.9 L Hct 39.5 MCV 104 H MCH 31.2 MCHC 30.1 L RDW Std Deviation 55.9 H Plt Count 209 D Neut % (Auto) 88 H Lymph % (Auto) 5 L [place] % (Auto) 6 Eos % (Auto) 0 Baso % (Auto) 0 Neut # (Auto) 10.8 H Lymph # (Auto) 0.6 L [place] # (Auto) 0.8 Eos # (Auto) 0.0 Baso # (Auto) 0.0 Immature Gran # (Auto) 0.09 H Absolute Nucleated RBC 0.00 Immature Gran % 1 H Nucleated RBC % 0 Puncture Site Arterial Line ABG pH 7.31 L ABG pCO2 71 H* D ABG pO2 61 L ABG HCO3 35 H ABG O2 Saturation 91 ABG Base Excess 7 H FiO2 28 Sodium 146 H Potassium 4.7 Chloride 108 H Carbon Dioxide 33.6 H Anion Gap 4 L BUN 36 H Creatinine 0.6 D Estim Creat Clear Calc 52.6 L eGFR > 60 BUN/Creatinine Ratio 60 H Glucose 121 H Calculated Osmolality 299 H Calcium 8.2 L Corrected Calcium 8.9 Phosphorus 2.2 L Magnesium 3.0 H Total Bilirubin 0.2 L AST 21 ALT 23 Alkaline Phosphatase 60 Total Protein 5.3 L Albumin 3.1 L D Globulin 2.2 L Albumin/Globulin Ratio 1.4 ABG Interpretation ABG results: 02/09/24 02/10/24 02/10/24 23:20 02:18 11:43 ABG pH ABG pCO2 ABG pO2 ABG HCO3 ABG O2 Saturation ABG Base Excess VBG pH 7.22 L 7.46 7.26 L VBG pCO2 95 H 46 D 95 H D VBG pO2 98 H 75 H D 66 H VBG Base Excess 7 H 8 H 11 H 02/10/24 02/10/24 02/11/24 16:30 22:02 05:22 ABG pH 7.25 L 7.20 L 7.18 L* ABG pCO2 95 H* 106 H* D 110 H* ABG pO2 71 L 73 L 110 H D ABG HCO3 41 H 41 H 41 H ABG O2 Saturation 94 93 98 ABG Base Excess 10 H 8 H 9 H VBG pH VBG pCO2 VBG pO2 VBG Base Excess 02/11/24 02/11/24 02/12/24 07:08 16:32 04:23 ABG pH 7.18 L* 7.26 L 7.24 L ABG pCO2 112 H* 79 H* D 83 H* ABG pO2 63 L D 116 H D 65 L D ABG HCO3 41 H 35 H 35 H ABG O2 Saturation 89 L 99 H 90 L ABG Base Excess 9 H 5 H 5 H VBG pH VBG pCO2 VBG pO2 VBG Base Excess 02/13/24 04:43 ABG pH 7.31 L ABG pCO2 71 H* D ABG pO2 61 L ABG HCO3 35 H ABG O2 Saturation 91 ABG Base Excess 7 H VBG pH VBG pCO2 VBG pO2 VBG Base Excess Quality Measures Quality Measures none Advance care planning discussed with:: patient and child Assessment & Plan Assessment Current Active Medications: Generic Name Dose Route Start Last Admin Trade Name Freq PRN Reason Stop Dose Admin Acetaminophen 650 mg 02/09/24 10:08 02/10/24 10:55 Acetaminophen 325 Mg Tablet PO 03/09/24 17:05 650 mg Q6H PRN Administration Fever >100.3 Albuterol 2.5 mg 02/11/24 15:00 02/13/24 14:20 Albuterol Rt 2.5 Mg/0.5 Ml Nebu INH 03/12/24 14:59 2.5 mg Q4HRRT RAPHAEL Administration Albuterol 2.5 mg 02/11/24 21:53 02/13/24 00:51 Albuterol Rt 2.5 Mg/0.5 Ml Nebu INH 03/12/24 21:59 2.5 mg Q2HR PRN Administration SOB, wheezing Protocol Dextrose 25 ml 02/10/24 15:31 Dextrose 50%-Water Inj 50 Ml Syringe IV 03/11/24 15:30 Q15MIN PRN BG 50-70 responsive npo pt Dextrose 50 ml 02/10/24 15:31 Dextrose 50%-Water Inj 50 Ml Syringe IV 03/11/24 15:30 Q15MIN PRN BG <50 OR BG <70 & pt unresponsive Glucagon 1 mg 02/10/24 15:31 Glucagon Inj 1 Mg Vial IM Q15MIN PRN BG <70, and no IV access Heparin Sodium (Porcine) 5,000 unit 02/08/24 17:30 02/13/24 14:49 Heparin Sod Inj 5000 Unit/Ml Vial SC 02/22/24 17:29 5,000 unit Q8HR RAPHAEL Administration Ceftriaxone Sodium/Dextrose 50 mls @ 100 mls/hr 02/08/24 17:21 02/13/24 09:18 Rocephin/D5w 1gm Iv Premix IV 02/15/24 17:20 Infused QDAY RAPHAEL Infusion Norepinephrine Bitartrate 16 mg in 250 mls @ 1.75 mls/hr 02/10/24 17:17 02/13/24 14:00 Levophed In Ns 16mg/250ml IV 03/11/24 17:16 0.11 mcg/kg/min .Q24H PRN 3.85 mls/hr PER PROTOCOL Titration Protocol 0.05 MCG/KG/MIN Vasopressin/Sodium Chloride 20 unit in 100 mls @ 9 mls/hr 02/10/24 19:25 02/13/24 15:34 Vasostrict/Ns Ivpb IV 03/11/24 19:24 0.03 unit/min .Q11H7M PRN 9 mls/hr PER PROTOCOL Administration Protocol 0.03 UNIT/MIN Propofol 1,000 mg in 100 mls @ 1.12 mls/hr 02/10/24 23:33 02/13/24 10:49 Diprivan Ivpb IV 03/11/24 18:52 0 mcg/kg/min .Q24H PRN 0 mls/hr PER PROTOCOL Titration Protocol 5 MCG/KG/MIN Fentanyl Citrate 2,500 mcg in 250 mls @ 2.5 mls/hr 02/10/24 23:34 02/13/24 14:00 Sublimaze Inj 2,500 Mcg/250 Ml Bag IV 02/15/24 16:49 0 mcg/hr .Q24H PRN 0 mls/hr PER PROTOCOL Titration Protocol 25 MCG/HR Ipratropium Neely 0.5 mg 02/10/24 23:00 02/13/24 14:20 Ipratropium Rt 0.5 Mg/ 2.5 Ml Nebu INH 03/11/24 22:59 0.5 mg Q4HRRT RAPHAEL Administration Ipratropium Neely 0.5 mg 02/10/24 19:46 02/13/24 00:51 Ipratropium Rt 0.5 Mg/ 2.5 Ml Nebu INH 03/11/24 19:45 0.5 mg Q2HR PRN Administration SHORTNESS OF BREATH Protocol Methylprednisolone Sodium Succinate 40 mg 02/11/24 12:15 02/13/24 08:21 Methylprednisolone Sod Succ 40 Mg Vial IVP 02/18/24 12:14 40 mg DAILY RAPHAEL Administration Nicotine 21 mg 02/09/24 13:45 02/13/24 08:21 Nicotine Patch 21 Mg/24 Hr Patch.Td24 TOP 03/10/24 13:44 21 mg QDAY RAPHAEL Administration Ondansetron HCl 4 mg 02/08/24 17:06 Ondansetron Inj 2 Mg/Ml Inj 2 Ml IV 03/09/24 17:05 Q6H PRN NAUSEA OR VOMITING Protocol Pantoprazole Sodium 40 mg 02/08/24 18:15 02/13/24 08:21 Pantoprazole Inj 40 Mg Vial IV 03/09/24 18:14 40 mg QDAY RAPHAEL Administration Sodium Chloride 3 ml 02/09/24 11:39 02/12/24 06:11 Sodium Chloride Rt Chayo 0.9% 3 Ml Nebu INH 03/10/24 11:38 3 ml PRN PRN Administration SOLN Plan Assessment and Plan: Summary: Ms. Ramirez is a 73-year-old female with history of asthma who presented to [facility] with chief complaint of shortness of breath, patient was started on IV antibiotics, IV steroids patient's respiratory status continued to worsen and patient was upgraded to ICU for further management of acute hypercapnic/hypoxic respiratory failure secondary to COPD exacerbation and community-acquired pneumonia. Neurological Patient is intubated and weaning patient off sedation. Cardiology #Atrial fibrillation with rapid ventricular response, resolved Patient had a rapid response, found to be in A-fib RVR with heart rate more than 180. Has no history of atrial fibrillation. [id number] Score: 3 Plan: -Telemonitoring -Cardiology consulted, appreciate recommendations #Hypertension Patient is on lisinopril at home Will hold patient blood pressure soft Pulmonary #Acute hypoxic, hypercapnic respiratory failure secondary to #COPD exacerbation #Community-acquired pneumonia, failed outpatient therapy #History of asthma Patient reported history of asthma, reports using levalbuterol inhaler at home. Patient was recently discharged from ED on PO antibiotics, had progressive worsening Patient is chronic smoker smoked full pack of cigarettes for 40 years, presented with shortness of breath Chest x-ray- COPD with moderate hyperexpansion, rounded masslike area in the right infrahilar region at least 4 cm, left base pneumonia Chest CT- COPD, Pulmonary artery hypertension, Wedge-shaped density radiating from the right hilar region and these 5.4 x 3.8cm most consistent with atelectasis, without definite endobronchial lesion VBG 02/10/24 shows pH 7.26, pCO2 95, pO2 66 Plan: -Patient is intubated, on mechanical ventilation -Continue albuterol every 4 hours, ipratropium every 4 hour -Continue IV Solu-Medrol -albuterol every 2 hours as needed, ipratropium every 2 hours as needed -Completed therapy on ceftriaxone and azithromycin (02/07-02/12) -Tylenol as needed for fever Gastrointestinal GI prophylaxis: Pantoprazole 40 mg IV daily Renal/Genitourinary # Acute kidney injury Baseline BUN 10, creatinine 0.6, GFR more than 60 02/11-BUN 43, creatinine 1.2, GFR 48 Plan: -Renal function has improved -Monitor urine output closely -Strict BLANCO -Dose medications renally -Avoid nephrotoxic agents # Respiratory acidosis with compensated metabolic alkalosis -Will treat underlying COPD #Hyperkalemia, resolved. Endocrine Stable Hematology #Leukocytosis Treat underlying condition #Polycythemia H/O of smoking Monitor CBC in a.m. Infectious Disease #Sepsis #Community-acquired pneumonia Patient presented with tachycardia tachypnea and leukocytosis Was recently discharged from ED on antibiotics for suspicion of sepsis Cocci IgM negative, IgG pending, bedside COVID-negative Sputum culture negative, blood culture negative for 48 hours Plan: Completed antibiotic therapy Tylenol as needed for fever Ordered RSV, Legionella, MRSA nasal screen, influenza DVT prophylaxis: Heparin SC every 8 hours GI prophylaxis: Protonix 40 mg IV daily Diet: N.p.o. Lines: Peripheral IV Code status: Full code Disposition: Currently intubated sedated on mechanical ventilation, will continue with ICU management Case discussed with Attending Dr. Andrew and Dr. Prabhakar PGY3. Sheryl Kirkland PGY1 Attending Provider Attestation/Addendum Patient seen and examined with above resident, Sheryl Kirkland MD. I agree with the findings, assessment, and plan of care as documented except for any differences below. Patient now on treatment for multiple days. Continues to have significant fixed airway obstruction as evidenced by flow and volume loops on ventilator. Patient's family updated at bedside including risk of failed extubation though will likely be able to transition to BiPAP. Sedation was held and despite 6 hours of waiting her to rise she continued to be rather lethargic. Will continue to leave her on SIMV overnight for synchrony and for her comfort with aims to try to return to pressure support tomorrow morning and potentially do extubation. If the patient continues to struggle, we will need to consider given her first fixed airway obstruction and advanced COPD the potential for inability to wean and if tracheostomy is not an option that the patient patient's family wanted to pursue based on our previous conversations including today, patient will likely need to be transition to comfort care. An attempt at extubation will be warranted with clear delineation of no plans to reintubate as an alternative option. This is all been explained to the family with goal to continue to push towards potential extubation. We do have options of using sedation to optimize her compliance with BiPAP to avoid hyperventilation leading to air trapping and further deterioration. Patient remains hemodynamically stable now and has not required paralysis since initial intubation and optimization of I:E ratio. Total critical care time: I personally spent 40 minutes for review of physiologic parameters, directing plan of care throughout the day, and counseling patient's family at bedside. This is exclusive of time spent teaching housestaff or performing any separate billable procedures. Patient continues require critical care services for acute on chronic hypercapnic respiratory failure secondary to COPD exacerbation. Patient continues to be at high risk for further morbidity and mortality warranting ongoing monitoring and care only available in the intensive care unit.
[2024-02-14] VITALS (89 sets, daily range): BP systolic 56–174; BP diastolic 36–108; PULSE 64–169; RESP 4–25; TEMP 36.3–37.2; O2SAT 45–100
[2024-02-14] MEDS: ALBUTEROL RT 2.5 MG/0.5 ML NEBU INH ×4 (02:14→14:12)
[2024-02-14] MEDS: IPRATROPIUM RT 0.5 MG/ 2.5 ML NEBU INH ×4 (02:14→14:12)
[2024-02-14 04:17] LABS: Base Excess 8 (-3-3); HCO3 37 mEq/L (20-26); Inspired Oxygen, FIO2 21 %; O2 Saturation 93 % (91-98); PCO2 70 mmHg (32.0-48.0); PO2 66 mmHg (83-108); pH, Arterial 7.33 (7.35-7.45)
[2024-02-14 04:28] LABS: Puncture Site Arterial Line
[2024-02-14 05:55] LABS: Basophils % (Auto) 0 % (0-2.5); Eosinophils % (Auto) 0 % (0-10); Hematocrit 39.5 % (36.0-46.0); Immature Granulocytes % (Auto) 0 % (0-0); Immature Granulocytes Auto 0.05 Thou/mm3 (0.00-0.00); Lymphocytes # (Auto) 0.6 Thou/mm3 (1.0-4.8); Lymphocytes % (Auto) 5 % (10-50); Mean Corpuscular HGB Conc 30.4 g/dl (31.0-37.0); Mean Corpuscular Hemoglobin 31.5 pg (25.0-35.0); Mean Corpuscular Volume 104 fL (80-100); Monocytes # (Auto) 0.8 Thou/mm3 (0.0-0.8); Monocytes % (Auto) 7 % (0-12); Neutrophils # (Auto) 9.8 Thou/mm3 (1.8-7.7); Neutrophils % (Auto) 88 % (37-80); Nucleated Red Blood Cell % 0 /100 WBC (0); Platelet Count 191 Thou/mm3 (140-440); RDW Standard Deviation 57.2 fL (36.4-46.3); Red Blood Count 3.81 Miln/mm3 (4.00-5.20); White Blood Count 11.2 Thou/mm3 (3.6-11.0)
--- NOTE | 2024-02-14 06:00 | XR_ITS ---
Examination: AP chest single view Technique: AP portable semiupright chest single view Exam date and time: February 14, 2024 0539 hrs. Comparison June 09, 2024 Indications: COPD, diagnosis, hypoxic respiratory failure, postintubation Findings: COPD with significant hyperexpansion Bibasilar interstitial type pneumonia Consider associated heart failure in spite of the normal heart size, given the COPD Tracheal tube tip 6.7 cm above marielena Right subclavian central line tip SVC Orogastric tube in the stomach the tip is below the level of the film Impression: COPD Bibasilar pneumonia Suspicious for mild heart failure
[2024-02-14 06:19] LABS: Alanine Aminotransferase 20 U/L (10-49); Albumin, Serum 3.5 gm/dL (3.4-4.8); Albumin/Globulin Ratio 1.5 (1.2-2.2); Alkaline Phosphatase 62 U/L (46-116); Anion Gap 5 (7-16); Aspartate Amino Transferase 15 U/L (0-34); BUN/Creatinine Ratio 67 Ratio (12-20); Bilirubin,Total 0.2 mg/dL (0.3-1.2); Blood Urea Nitrogen 40 mg/dL (9-23); Calcium 8.6 mg/dL (8.3-10.6); Carbon Dioxide 35.6 mMol/L (20.0-31.0); Chloride 108 mMol/L (98-107); Creatinine (Component) 0.6 mg/dL (0.6-1.3); Estimated Creatinine Clearance 52.6 mL/min (>60); Globulin 2.3 gm/dL (2.3-3.5); Glucose 102 mg/dL (74-106); Magnesium 3.2 mg/dL (1.6-2.6); Osmolality,Calculated 305 (275-295); Phosphorous 2.2 mg/dL (2.4-5.1); Potassium 4.9 mMol/L (3.4-5.1); Sodium 149 mMol/L (136-145); Total Protein 5.8 gm/dL (5.7-8.2); eGFR > 60 See Note
[2024-02-14] MEDS: HEPARIN SOD INJ 5000 UNIT/ML VIAL SC ×2 (06:34→14:18)
[2024-02-14] MEDS: PANTOPRAZOLE INJ 40 MG VIAL IV (08:40)
[2024-02-14] MEDS: cefTRIAXone/D5w 1gm IV premix 50 ML IV (08:41)
[2024-02-14] MEDS: NICOTINE PATCH 21 MG/24 HR PATCH.TD24 TOP (08:41)
--- NOTE | 2024-02-14 09:13 | PC.SS ---
Update: Patient has been extubated today, 02-14-24.
[2024-02-14] MEDS: ALBUTEROL RT 2.5 MG/0.5 ML NEBU 10 MG INH (10:47)
[2024-02-14] MEDS: Magnesium Sulfate 2 GM Ivpb 2 GM/50 ML BAG IV (11:24)
[2024-02-14 13:25] LABS: Base Excess 8 (-3-3); HCO3 39 mEq/L (20-26); Inspired Oxygen, FIO2 100 %; O2 Saturation 84 % (91-98); PCO2 92 mmHg (32.0-48.0); pH, Arterial 7.23 (7.35-7.45)
[2024-02-14 13:38] LABS: Allen Test Not Performed; PO2 55 mmHg (83-108); Puncture Site Arterial Line
--- NOTE | 2024-02-14 16:11 | ESPR_ITS ---
<Statement entered by Madelyn Prabhakar DO - 02/14/24 21:29> Senior attestation: Patient was examined and case was reviewed with team including attending physician. Note reviewed, I agree with most of its contents and agree with the patient's care. SBT completed today, able to extubate patient and place on HFNC for adequate saturation, later placed on BiPAP after oxygen saturations were noted to worsen. Patient was treated with 1 hour long albuterol breathing treatment and magnesium, oxygenation noticed to fluctuate but did not consistently improve. Code status discussion with patient's decision maker daughter Neela (detailed in separate event note) was held in person and via phone call, code status changed to DNR/DNI while Neela and family were heading to hospital to see patient, and seeking discussion to discuss comfort care measures. In the evening, goals of care discussion between Dr. Prabhakar (PGY-3), Dr. Kirkland (PGY-1), patient's decision maker daughter Neela, and other family members including daughters, sister, and grand-daughter were held. Patient's family and decision maker asked for time for family to see patient, and later in evening made decision to switch to comfort care measures. Decision to begin measures was also verified by DAE Roa at bedside. We will respect the family's decision and initiate comfort care m easures. Madelyn Prabhakar DO PGY-3 Documentation for date of: 02/14/24 Subjective Subjective Interval history: Ms. Ramirez is a 73-year-old female with past medical history significant for asthma who presented to [facility] with a chief complaint of shortness of breath. Patient reported using levalbuterol inhaler daily, also is a former smoker and smoked for 40 years approximately half a pack a day daily however patient quit smoking cigarettes 6 months ago. Patient presented to ED on 02/02 for shortness of breath and was discharged home with antibiotics, her symptoms initially improved. However post to discharge patient's shortness of breath progressively worsened without improvement with her albuterol inhaler, which prompted her to come to the ED again on 02/07. Patient ambulates without difficulty, or shortness of breath. Patient denies recent travel history or sick contacts. In ED patient was saturating at 95% on 15 L via Oxy mask, was tachycardic and hypertensive. Bedside COVID was negative, lab findings did show leukocytosis WBC 12.8, polycythemia hemoglobin 16.4, BNP 369. On imaging chest x-ray Chest x-ray- COPD with moderate hyperexpansion, rounded masslike area in the right infrahilar region at least 4 cm, left base pneumonia, Chest CT- COPD, Pulmonary artery hypertension, Wedge-shaped density radiating from the right hilar region and these 5.4 x 3.8cm most consistent with atelectasis, without definite endobronchial lesion In the ED patient received breathing treatment and Solu- Medrol. Patient was admitted to floors for sepsis secondary to community- acquired pneumonia and acute hypoxic respiratory failure secondary to COPD exacerbation and suspicion of PE. Patient's hospital course was complicated by increased oxygen requirements, patient was placed on BiPAP, significant respiratory distress noted with respiratory rate in 40s and 50s, patient noted to be in atrial fibrillation, was started on amiodarone drip, initially patient was DNR/DNI, primary team discussed case with patient's family and they wanted to proceed with intubation hence patient was upgraded to ICU for further management and intubation. 02/11/2024: Patient seen and examined at bedside, overnight ventilator settings were changed, pH 7.18, pCO2 112 this morning, Nimbex and amiodarone drip was discontinued yesterday as patient was bradycardic. Patient started on albuterol every 4 hours, methylprednisolone IV, will be given 1 hour-long albuterol treatment, 2 g of IV magnesium a follow-up and clinically patient is dry started on maintenance fluids. Repeat ABG shows significant improvement in patient's pH. Otherwise we will continue mechanical ventilation, will repeat ABG in the morning. Cardiology saw the patient at bedside, possible atrial fibrillation due to underlying COPD. Will continue to monitor patient. 02/12/2024: Patient seen and examined at bedside, overnight patient was given 1 hour breathing treatment, magnesium and IV steroids as patient was desaturating, seen at bedside in morning, continues to remain on mechanical ventilation, significant improvement noted in patient's ABG analysis, pH 7.24, pCO2 83, pO2 65, bicarb 35. Otherwise acute kidney injury noted on labs, creatinine 1.2, GFR 48, BUN 43. Patient will be given 1 L LR bolus, will continue to monitor urine output closely, will follow renal panel in a.m. if patient's ABG and renal function improves in morning will consider weaning patient off of mechanical ventilation. Cardiology following patient closely. Will continue IV antibiotics, white count downtrending, no fevers noted. 02/13/2024: Patient seen and examined at bedside, overnight patient's saturation went to low 80s, FiO2 was increased and patient's oxygenation improved. Patient will be weaned off of sedation today, will only use Precedex if patient is restless/agitated, plan to wean patient off of ventilation in the morning, will continue with large-volume for now. Patient has end-stage COPD, renal function has improved, creatinine back to baseline today. Completed therapy on ceftriaxone and azithromycin. If patient's pulmonary function is stable, will try to wean off patient off mechanical ventilation in a.m. Will continue to monitor patient, no sedation overnight, use Precedex as needed. 02/14/2024: Patient seen and examined at bedside, patient was placed on spontaneous breathing trial today, eventually patient was extubated. Postextubation patient was placed on high flow nasal cannula, with goal saturation of 88-92, patient was unable to maintain goal saturation and was placed on BiPAP, patient was given 1 hour long breathing treatment with albuterol and 2 mg IV magnesium in 20 minutes, patient's oxygenation did not improve. Eventually discussion for patient's CODE STATUS held with patient's family over the phone, patient's primary decision maker/daughter decided to change patient's CODE STATUS to DNR/DNI. Patient was noted to be uncomfortable on BiPAP, goals of care discussion held with patient's whole family daughters, sister and granddaughter, patient's family eventually decided to change patient to comfort care. Patient started on comfort measures. Exam Vital Signs Temp Pulse Resp BP Pulse Ox O2 Del Method O2 Flow Rate 98.9 F 90 14 154/73 H 85 L High Flow Nasal Cannula 40 02/14/24 12:00 02/14/24 15:00 02/14/24 15:00 02/14/24 15:00 02/14/24 15:00 02/14/24 12:00 02/14/24 12:00 FiO2 80 02/14/24 14:20 Narrative Exam Physical Exam GENERAL: Frail thin elderly female, tired, tries to follow commands. HEENT: Normocephalic, atraumatic, mucous membranes dry. HEART: Regular rate and rhythm, no murmur, rubs, or gallops on auscultation LUNGS: Wheezing on auscultation both lobes. Currently intubated on mechanical ventilation. ABDOMEN: Soft, nondistended, nontender, positive bowel sounds. ?No guarding or rebound tenderness. SKIN: No Rash or ecchymoses. Dry skin. EXTREMITIES: No edema in lower extremities noted. NEUROLOGICAL: Alert and oriented x3, no gross neurological deficit, and patient able to move all 4 extremities. Objective Labs 02/14/24 04:09 02/14/24 04:09 Labs: Laboratory Results - last 24 hr 02/14/24 02/14/24 02/14/24 04:06 04:09 13:15 WBC 11.2 H RBC 3.81 L Hgb 12.0 Hct 39.5 MCV 104 H MCH 31.5 MCHC 30.4 L RDW Std Deviation 57.2 H Plt Count 191 Neut % (Auto) 88 H Lymph % (Auto) 5 L [place] % (Auto) 7 Eos % (Auto) 0 Baso % (Auto) 0 Neut # (Auto) 9.8 H Lymph # (Auto) 0.6 L [place] # (Auto) 0.8 Eos # (Auto) 0.0 Baso # (Auto) 0.0 Immature Gran # (Auto) 0.05 H Absolute Nucleated RBC 0.00 Immature Gran % 0 Nucleated RBC % 0 Puncture Site Arterial Line Arterial Line ABG pH 7.33 L 7.23 L D ABG pCO2 70 H 92 H* D ABG pO2 66 L 55 L* ABG HCO3 37 H 39 H ABG O2 Saturation 93 84 L ABG Base Excess 8 H 8 H FiO2 21 100 Sodium 149 H Potassium 4.9 Chloride 108 H Carbon Dioxide 35.6 H Anion Gap 5 L BUN 40 H Creatinine 0.6 Estim Creat Clear Calc 52.6 L eGFR > 60 BUN/Creatinine Ratio 67 H Glucose 102 Calculated Osmolality 305 H Calcium 8.6 Corrected Calcium 9.0 Phosphorus 2.2 L Magnesium 3.2 H Total Bilirubin 0.2 L AST 15 ALT 20 Alkaline Phosphatase 62 Total Protein 5.8 Albumin 3.5 Globulin 2.3 Albumin/Globulin Ratio 1.5 ABG Interpretation ABG results: 02/09/24 02/10/24 02/10/24 23:20 02:18 11:43 ABG pH ABG pCO2 ABG pO2 ABG HCO3 ABG O2 Saturation ABG Base Excess VBG pH 7.22 L 7.46 7.26 L VBG pCO2 95 H 46 D 95 H D VBG pO2 98 H 75 H D 66 H VBG Base Excess 7 H 8 H 11 H 02/10/24 02/10/24 02/11/24 16:30 22:02 05:22 ABG pH 7.25 L 7.20 L 7.18 L* ABG pCO2 95 H* 106 H* D 110 H* ABG pO2 71 L 73 L 110 H D ABG HCO3 41 H 41 H 41 H ABG O2 Saturation 94 93 98 ABG Base Excess 10 H 8 H 9 H VBG pH VBG pCO2 VBG pO2 VBG Base Excess 02/11/24 02/11/24 02/12/24 07:08 16:32 04:23 ABG pH 7.18 L* 7.26 L 7.24 L ABG pCO2 112 H* 79 H* D 83 H* ABG pO2 63 L D 116 H D 65 L D ABG HCO3 41 H 35 H 35 H ABG O2 Saturation 89 L 99 H 90 L ABG Base Excess 9 H 5 H 5 H VBG pH VBG pCO2 VBG pO2 VBG Base Excess 02/13/24 02/14/24 02/14/24 04:43 04:06 13:15 ABG pH 7.31 L 7.33 L 7.23 L D ABG pCO2 71 H* D 70 H 92 H* D ABG pO2 61 L 66 L 55 L* ABG HCO3 35 H 37 H 39 H ABG O2 Saturation 91 93 84 L ABG Base Excess 7 H 8 H 8 H VBG pH VBG pCO2 VBG pO2 VBG Base Excess Quality Measures Quality Measures none Advance care planning discussed with:: patient, spouse, child, legal surragate and sibling Assessment & Plan Assessment Current Active Medications: Generic Name Dose Route Start Last Admin Trade Name Freq PRN Reason Stop Dose Admin Acetaminophen 650 mg 02/09/24 10:08 02/10/24 10:55 Acetaminophen 325 Mg Tablet PO 03/09/24 17:05 650 mg Q6H PRN Administration Fever >100.3 Albuterol 2.5 mg 02/11/24 15:00 02/14/24 14:12 Albuterol Rt 2.5 Mg/0.5 Ml Nebu INH 03/12/24 14:59 2.5 mg Q4HRRT RAPHAEL Administration Dextrose 25 ml 02/10/24 15:31 Dextrose 50%-Water Inj 50 Ml Syringe IV 03/11/24 15:30 Q15MIN PRN BG 50-70 responsive npo pt Dextrose 50 ml 02/10/24 15:31 Dextrose 50%-Water Inj 50 Ml Syringe IV 03/11/24 15:30 Q15MIN PRN BG <50 OR BG <70 & pt unresponsive Glucagon 1 mg 02/10/24 15:31 Glucagon Inj 1 Mg Vial IM Q15MIN PRN BG <70, and no IV access Heparin Sodium (Porcine) 5,000 unit 02/08/24 17:30 02/14/24 14:18 Heparin Sod Inj 5000 Unit/Ml Vial SC 02/22/24 17:29 5,000 unit Q8HR RAPHAEL Administration Ceftriaxone Sodium/Dextrose 50 mls @ 100 mls/hr 02/08/24 17:21 02/14/24 09:34 Rocephin/D5w 1gm Iv Premix IV 02/15/24 17:20 Infused QDAY RAPHAEL Infusion Norepinephrine Bitartrate 16 mg in 250 mls @ 1.75 mls/hr 02/10/24 17:17 02/14/24 06:00 Levophed In Ns 16mg/250ml IV 03/11/24 17:16 0 mcg/kg/min .Q24H PRN 0 mls/hr PER PROTOCOL Titration Protocol 0.05 MCG/KG/MIN Vasopressin/Sodium Chloride 20 unit in 100 mls @ 9 mls/hr 02/10/24 19:25 02/14/24 00:40 Vasostrict/Ns Ivpb IV 03/11/24 19:24 0 unit/min .Q11H7M PRN 0 mls/hr PER PROTOCOL Titration Protocol 0.03 UNIT/MIN Ipratropium [place] 0.5 mg 02/10/24 23:00 02/14/24 14:12 Ipratropium Rt 0.5 Mg/ 2.5 Ml Nebu INH 03/11/24 22:59 0.5 mg Q4HRRT RAPHAEL Administration Ipratropium [place] 0.5 mg 02/10/24 19:46 02/13/24 00:51 Ipratropium Rt 0.5 Mg/ 2.5 Ml Nebu INH 03/11/24 19:45 0.5 mg Q2HR PRN Administration SHORTNESS OF BREATH Protocol Methylprednisolone Sodium Succinate 40 mg 02/11/24 12:15 02/14/24 08:41 Methylprednisolone Sod Succ 40 Mg Vial IVP 02/18/24 12:14 40 mg DAILY RAPHAEL Administration Nicotine 21 mg 02/09/24 13:45 02/14/24 08:41 Nicotine Patch 21 Mg/24 Hr Patch.Td24 TOP 03/10/24 13:44 21 mg QDAY RAPHAEL Administration Ondansetron HCl 4 mg 02/08/24 17:06 Ondansetron Inj 2 Mg/Ml Inj 2 Ml IV 03/09/24 17:05 Q6H PRN NAUSEA OR VOMITING Protocol Pantoprazole Sodium 40 mg 02/08/24 18:15 02/14/24 08:40 Pantoprazole Inj 40 Mg Vial IV 03/09/24 18:14 40 mg QDAY RAPHAEL Administration Sodium Chloride 3 ml 02/09/24 11:39 02/12/24 06:11 Sodium Chloride Rt [place] 0.9% 3 Ml Nebu INH 03/10/24 11:38 3 ml PRN PRN Administration SOLN Plan Assessment and Plan: Summary: Ms. aRmirez is a 73-year-old female with history of asthma who presented to [facility] with chief complaint of shortness of breath, patient was started on IV antibiotics, IV steroids patient's respiratory status continued to worsen and patient was upgraded to ICU for further management of acute hypercapnic/hypoxic respiratory failure secondary to COPD exacerbation and community-acquired pneumonia. Neurological Patient is intubated and weaning patient off sedation. Cardiology #Atrial fibrillation with rapid ventricular response, resolved Patient had a rapid response, found to be in A-fib RVR with heart rate more than 180. Has no history of atrial fibrillation. [id number] Score: 3 Plan: Comfort care measures #Hypertension Patient is on lisinopril at home Will hold blood pressure medication Pulmonary #Acute hypoxic, hypercapnic respiratory failure secondary to #COPD exacerbation #Community-acquired pneumonia, failed outpatient therapy #History of asthma Patient reported history of asthma, reports using levalbuterol inhaler at home. Patient was recently discharged from ED on PO antibiotics, had progressive worsening Patient is chronic smoker smoked full pack of cigarettes for 40 years, presented with shortness of breath Chest x-ray- COPD with moderate hyperexpansion, rounded masslike area in the right infrahilar region at least 4 cm, left base pneumonia Chest CT- COPD, Pulmonary artery hypertension, Wedge-shaped density radiating from the right hilar region and these 5.4 x 3.8cm most consistent with atelectasis, without definite endobronchial lesion VBG 02/10/24 shows pH 7.26, pCO2 95, pO2 66 Patient extubated on 02/13, desaturated on high flow nasal cannula 100% FiO2, placed on BiPAP. Goals of care discussion held with family, patient started on comfort care. Plan: -Comfort care measures Gastrointestinal Stable Renal/Genitourinary # Acute kidney injury Baseline BUN 10, creatinine 0.6, GFR more than 60 02/11-BUN 43, creatinine 1.2, GFR 48 Plan: -Comfort care measures # Respiratory acidosis with compensated metabolic alkalosis #Hyperkalemia, resolved. Endocrine Stable Hematology #Leukocytosis #Polycythemia H/O of smoking Infectious Disease #Sepsis #Community-acquired pneumonia Patient presented with tachycardia tachypnea and leukocytosis Was recently discharged from ED on antibiotics for suspicion of sepsis Cocci IgM negative, IgG pending, bedside COVID-negative Sputum culture negative, blood culture negative for 48 hours Plan: Comfort care measures DVT prophylaxis: Heparin SC every 8 hours GI prophylaxis: Protonix 40 mg IV daily Diet: N.p.o. Lines: Peripheral IV Code status: Full code Disposition: Currently intubated sedated on mechanical ventilation, will continue with ICU management Case discussed with Attending Dr. Andrew and Dr. Prabhakar PGY3. Sheryl Kirkland PGY1 Attending Provider Attestation/Addendum Patient seen and examined with the above resident, Sheryl Kirkland MD. I agree with the findings, assessment, and plan of care as documented except for any differences below. Patient lethargic but able to adequately protect airway and did well with SBT. Extubated to high humidity/high flow nasal cannula and remained stable for multiple hours. Family and patient did come at bedside though she remains limited in response. Family setting their request to limit aggressive therapy with potential for transition to comfort measures only, We tried to maintain off of positive pressure ventilation but unfortunately patient continued to have increasing requirements and worsening pCO2. Eventually trialed on BiPAP with improvement but patient's family at this point realizing that she is headed once again towards intubation elected to remain DNI. Patient's family was able to visit and made joint decision to transition to comfort only measures. She was placed on as needed morphine with discontinuation of positive pressure ventilation or oxygen with eventual demise with her family surrounding her. I did give my condolences to the family at the time of pronouncement. Total critical care time: I personally spent 45 minutes for review of physiologic parameters, directing plan of care throughout the day, coordination of care with family and counseling with the family throughout the day. This is exclusive of time spent teaching housestaff or performing any separate billable procedures. Patient continues to require critical care services given imminent demise from acute exacerbation of COPD and acute hypercapnic respiratory failure. Despite adequate treatment patient with significant fixed airway obstruction from which she subsequently .
--- NOTE | 2024-02-14 16:19 | EVENTNT_ITS ---
<Statement entered by Saúl Andrew MD - 02/14/24 17:24> I have reviewed and agree with above documentation. Documentation for date of: 02/14/24 Event Note Event Note: Spoke with patient's decision-maker daughter Neela in person this morning and called in afternoon around 1610 to discuss code status. Was informed of patient's prognosis and conditions, all questions answered to patient's satisfaction. Patient's decision-maker Neela has determined to change patient's code status to DNR/DNI, states this is what patient would want in this condition. Neela stated she will be coming into the hospital now and will speak about other medical options, including possibility of comfort care. DAE Roa also spoke with Neela over phone call, confirmed this information. We will respect family's decision and change code status to DNR/DNI. Patient case discussed with attending physician Dr. Kamran Prabhakar, DO PGY-3
--- NOTE | 2024-02-14 16:23 | PC.NURSE ---
I spoke with Neela (dtr) regarding the conversation and she had about patient;s code status. Per neela patient verbally stated that she does not want patient to be intubated or to be resuscitated. Pt wanted to speak with Dr. Prabhakar personally regarding comfort measures. I verbalized to Dr. Prabhakar that patient's dtr is wanting DNR/DNI per their earlier conversation.
[2024-02-14] MEDS: SCOPOLAMINE 1 MG TDSY TOP (17:51)
[2024-02-14] MEDS: MORPHINE SULF INJ 10 MG/ML VIAL 2 MG IVP ×5 (17:53→19:49)
[2024-02-14] MEDS: LORazepam 2 MG/ML VIAL 1 MG IVP (19:47)
--- NOTE | 2024-02-14 19:54 | DES_ITS ---
<Statement entered by Saúl Andrew MD - 02/15/24 06:07> Attending Attestation: I was present at the time of pronouncement. Condolences given to family at bedside. Documentation for date of: 02/14/24 Pronouncement Note Date and Time of Date of : 02/14/24 Time of : 19:50 PCOD Preliminary cause of : Cardiopulmonary arrest Summary Additional details: Called to see patient for unresponsiveness. On exam the patient was unresponsive, no spontaneous movement observed, pt did not respond to verbal or noxious stimuli. Absent heart and breath sounds for more than 2 minute. Pupils are fixed and dilated, corneal reflex was absent. Patient pronounced at 19:50 on .. Next of kin/family were present at bedside. My supervising attending physician Dr. Saúl Andrew was notified. Shalom Marks M.D. Internal Medicine PGY-3 Additional Data Confirmation of : no pulse, no respirations, no heart sounds and pupils fixed and dilated Family: at bedside Attending/PCP notified?: Yes Attending physician: Dr. Saúl Andrew Was code activated?: No Autopsy requested?: No liability claims examiner notified?: No Organ bank notified?: Yes Advance directives: No
--- NOTE | 2024-02-15 07:48 | DES_ITS ---
<Statement entered by Saúl Andrew MD - 02/15/24 13:37> I have reviewed and agree with the above documentation. <Statement entered by Madelyn Prabhakar DO - 02/15/24 11:16> Senior attestation: Patient was examined and case was reviewed with team including attending physician. Note reviewed, I agree with its content. As outlined in the summary, patient was transitioned to comfort care measures as decided by family and patient's decision-maker. Family was consoled, patient as detailed in the pronouncement note. aMdelyn Prabhakar DO PGY-3 Documentation for date of: 02/15/24 Summary Date and Time Date of admission: 02/08/24 17:06 Date of : 02/14/24 Time of : 19:50 Summary Details: Called to see patient for unresponsiveness. On exam the patient was unresponsive, no spontaneous movement observed, pt did not respond to verbal or noxious stimuli. Absent heart and breath sounds for more than 2 minute. Pupils are fixed and dilated, corneal reflex was absent. Patient pronounced at 19:50 on 02/14/2024.. Next of kin/family were present at bedside. Hospital Course: Ms. Ramirez is a 73-year-old female with past medical history of asthma and hypertension who presented to [facility] with a chief complaint of shortness of breath. On presentation patient's chest x-ray was consistent with obstructive lung disease lung findings, suspected left base pneumonia CT chest showed wedge-shaped density in right hilar region and chest CTA showed similar findings, pulmonary artery emboli were ruled out. Patient's oxygen requirements continued to trend higher during the hospitalization, patient had significant air hunger, was eventually placed on BiPAP, case was discussed with family and patient was intubated, sedated and started on mechanical ventilation, patient was given regular breathing treatments, was eventually weaned off of pressors, sedation and was extubated. Postextubation patient was hypoxic, was placed on high flow nasal cannula oxygen, patient's oxygen requirements continued to trend upwards again and was eventually placed on BiPAP. Goals of care discussion held with family, explained poor prognosis in setting of end- stage COPD and decision was made by patient's family to start patient on comfort care measures. Patient was started on comfort care measures, eventually on exam the patient was unresponsive, no spontaneous movement observed, pt did not respond to verbal or noxious stimuli. Absent heart and breath sounds for more than 2 minute. Pupils are fixed and dilated, corneal reflex was absent. Date of : 02/14/24 Time of : 19:50 Diagnosis: #Acute hypoxic, hypercapnic respiratory failure secondary to #COPD exacerbation #Community-acquired pneumonia, failed outpatient therapy #History of asthma # Acute kidney injury # Respiratory acidosis with compensated metabolic alkalosis #Hyperkalemia, resolved. #Leukocytosis #Polycythemia #Sepsis #Atrial fibrillation with rapid ventricular response, resolved #Hypertension Case discussed with Attending Dr. Andrew and Dr. Prabhakar PGY3. Sheryl Kirkland PGY1 Additional Data Confirmation of as documented by pronouncing clinician: no pulse, no respirations, no heart sounds and pupils fixed and dilated Family: at bedside Attending/PCP notified?: Yes Attending physician: Kamran Hays MD Visit Providers Provider Primary care physician: Maria Ines Odom PA-C Consults: 02/10/24 11:46 Consult to Cardiology Routine Comment: Consulting Provider: Adrian Brand 02/10/24 15:11 Referral Registered Dietitian Routine Comment: 02/10/24 15:54 Consult to Bus And Trolley Inspecting Dispatcher Stat Comment: Consulting Provider: Saúl Andrew I Discharge Plan Plan Patient Disposition: Prescriptions/Referrals Referrals: Maria Ines Odom PA-C [Primary Care Provider] - Patient/Caregiver Discharge Instructions Print Language: [place] Citizen
== END 2024-02-14 19:50 | disposition expired | DRG 871 ==
LOC: SERX 11:22 → SERHOLD 17:54 → S3NX 23:38 → S2NX 02-10 14:58 → S2SX 02-10 16:42
PROVIDERS: Student in an Organized Health Care Education/Training Program; Admitting Provider Internal Medicine; Emergency Provider Emergency Medicine; PCP Physician Assistant; Visit Provider Internal Medicine
DX: A41.9 Sepsis, unspecified organism (principal); J18.9 Pneumonia, unspecified organism; J96.01 Acute respiratory failure with hypoxia; J96.02 Acute respiratory failure with hypercapnia; J44.0 Chronic obstructive pulmonary disease with (acute) lower respiratory infection; J44.1 Chronic obstructive pulmonary disease with (acute) exacerbation; J98.11 Atelectasis; E87.4 Mixed disorder of acid-base balance; N17.9 Acute kidney failure, unspecified; Z87.891 Personal history of nicotine dependence; Z66 Do not resuscitate; I10 Essential (primary) hypertension; Z91.148 Patient's other noncompliance with medication regimen for other reason; I48.91 Unspecified atrial fibrillation; E87.5 Hyperkalemia; I27.21 Secondary pulmonary arterial hypertension; D75.1 Secondary polycythemia; E86.0 Dehydration; I46.9 Cardiac arrest, cause unspecified; Z51.5 Encounter for palliative care
CPT/HCPCS: 36415; 36600; 71045; 71250; 71275; 80053; 80069; 81001; 82803; 83605; 83735; 83880; 84100; 84484; 85025; 85610; 85730; 86331; 86635; 87040; 87081; 87205; 87449; 87502; 87634; 87811; 93005; 93225; 93306; 93970; 94002; 94003; 94640; 94644; 94645; 94660; 96365; 96372; 96375; 96376; 99285; A4649; A9270; J0283; J0456; J0612; J0696; J1643; J1720; J1815; J2060; J2270; J2470; J2598; J2704; J2919; J3010; J3475; J3490; J7030; J7040; J7050; J7120; Q9967